=== PATIENT | female | born 1955 | race Caucasian/White ===

== ENCOUNTER 2018-02-14 03:50 | Inpatient (IN) | payer MEDICARE ==
[~2018-02-14] VITALS: Ht 165.1 cm; Wt 83.3 kg
[~2018-02-14 03:50] MED LIST: ASPI-612 PO; ATOR40TA71 PO; CALC-855 PO; CARV25TA2 PO; FERR325T28 PO; FISH1CAP15 PO; FLUO20CA22 PO; FURO-150 PO; GABA-532 PO; INSU100V36 SQ; INSU300I SQ; LEVO25TA7 PO; LISI-604 PO; NORCO10T PO; PANT20TA3 PO; POTA10TA36 PO
[2018-02-14 04:22] LABS: BASOPHILS % (AUTO) 0.3 % (0-1); EOSINOPHILS # (AUTO) 0.3 X10'3 (0-0.9); EOSINOPHILS % (AUTO) 2.6 % (0-6); HEMATOCRIT 35.7 % (35.0-45.0); HEMOGLOBIN 11.7 g/dl (12.0-16.0); LYMPHOCYTES # (AUTO) 0.9 X10'3 (1.1-4.8); LYMPHOCYTES % (AUTO) 7.4 % (21-51); MEAN CORPUSCULAR HEMOGLOBIN 27.2 PG (27.0-31.0); MEAN CORPUSCULAR HGB CONC 32.8 % (33.0-36.5); MEAN CORPUSCULAR VOLUME 83.1 FL (78-98); MEAN PLATELET VOLUME 10.5 FL (7.4-10.4); MONOCYTES # (AUTO) 0.4 X10'3 (0-0.9); MONOCYTES % (AUTO) 3.3 % (2-12); NEUTROPHILS # (AUTO) 10.8 X10'3 (1.8-7.7); NEUTROPHILS % (AUTO) 86.4 % (42-75); RED BLOOD COUNT 4.29 X10'6 (4.20-5.60); WHITE BLOOD COUNT 12.4 X10'3 (4.5-11.0)
[2018-02-14 04:28] LABS: INR 1.4 INR; PROTHROMBIN TIME 13.9 SECONDS (9.0-12.0)
[2018-02-14 04:31] LABS: ALANINE AMINOTRANSFERASE 45 U/L (12-78); ALBUMIN 2.2 G/DL (3.4-5.0); ALBUMIN/GLOBULIN RATIO 0.5 (1.1-1.5); ALKALINE PHOSPHATASE 81 IU/L (46-116); ANION GAP 4 (8-16); ASPARTATE AMINO TRANSFERASE 73 U/L (10-37); BILIRUBIN,TOTAL 0.5 MG/DL (0.1-1.0); BLOOD UREA NITROGEN 25 MG/DL (7-18); BUN/CREATININE RATIO 16.2 (6.6-38.0); CALCIUM 8.8 MG/DL (8.5-10.1); CHLORIDE 100 MMOL/L (99-107); CREATININE 1.54 MG/DL (0.40-0.90); GLUCOSE 130 MG/DL (70-104); POTASSIUM 4.1 MMOL/L (3.5-5.1); SODIUM 133 MMOL/L (135-145); TOTAL PROTEIN 6.6 G/DL (6.4-8.2); eGFR 34 ML/MIN
[2018-02-14 04:37] LABS: PLATELET COUNT 259 X10'3 (140-440)
[2018-02-14] MEDS ORDERED: methylPREDNISolone sod succ 125mg/2ml vial IV ONE (04:40)
[2018-02-14 05:05] LABS: D-DIMER 0.67 MG/L FEU (0-0.50); PARTIAL THROMBOPLASTIN TIME 31 SECONDS (22-32)
[2018-02-14] MEDS ORDERED: VITA100D6 PO (05:38)
[2018-02-14] MEDS ORDERED: INSU100V12 SQ (05:38)
[2018-02-14] MEDS ORDERED: DIGO125T PO (05:38)
[2018-02-14] MEDS ORDERED: APIX5TAB3 PO (05:38)
[2018-02-14] MEDS ORDERED: LEVO100T PO (05:38)
[2018-02-14] MEDS ORDERED: AMIO200T57 PO (05:38)
[2018-02-14] MEDS ORDERED: INSU100V13 SQ (05:38)
[2018-02-14] MEDS ORDERED: ASCO500C15 PO (05:38)
[2018-02-14] MEDS ORDERED: OSC500T PO (05:38)
[2018-02-14] MEDS ORDERED: POTA10TA19 PO (05:38)
[2018-02-14] MEDS ORDERED: FURO-150 PO (05:38)
[2018-02-14] MEDS ORDERED: DEXL60CA3 PO (05:38)
[2018-02-14] MEDS ORDERED: VENL75TA4 PO (05:38)
[2018-02-14] MEDS ORDERED: MULT-933 PO (05:40)
[2018-02-14] MEDS ORDERED: mag hydrox/Alum hydrox/simeth 30ml oral suspension PO PRN (06:05)
[2018-02-14] MEDS ORDERED: ondansetron/PF 4mg/2ml inj IV PRN (06:05)
[2018-02-14] MEDS ORDERED: magnesium hydroxide 30ml (MOM) UD suspension PO PRN (06:05)
[2018-02-14] MEDS ORDERED: acetaminophen 325mg tablet PO PRN (06:05)
[2018-02-14] MEDS ORDERED: HYDROcodone/acetaminophen 10/325mg tab PO PRN (06:10)
[2018-02-14] MEDS ORDERED: non-formulary drug (Fish Oil/Dha/Epa (Fish Oil 1,200 Mg Fish Oil) 1 EACH) PO SCH (08:00)
[2018-02-14] MEDS ORDERED: furosemide 20MG tablet PO SCH (08:00)
[2018-02-14] MEDS ORDERED: insulin Lispro (HumaLOG) vial - multi-dose SQ SCH (08:00)
[2018-02-14] MEDS: carVEDilol 12.5mg tablet PO SCH ×2 (08:03→20:33)
[2018-02-14] MEDS: amiodarone 200mg tablet PO SCH (08:03)
[2018-02-14] MEDS: levoTHYROXINE 100mcg tablet PO SCH (08:03)
[2018-02-14] MEDS: ascorbic acid 500mg tablet PO SCH (08:03)
[2018-02-14] MEDS: potassium chloride 10mEq ER tablet PO SCH (08:03)
[2018-02-14] MEDS: pantoprazole 40mg Tablet.DR PO SCH (08:04)
[2018-02-14] MEDS: multivitamins, therapeutics tablet PO SCH (08:04)
[2018-02-14] MEDS: FLUoxetine 20mg capsule PO SCH ×2 (08:04→20:33)
[2018-02-14] MEDS: ferrous sulfate 325mg tablet PO SCH (08:04)
[2018-02-14] MEDS: lisinopril 5mg tablet PO SCH (08:22)
[2018-02-14] MEDS: apixaban 5mg tablet PO SCH ×2 (08:22→20:33)
[2018-02-14] MEDS: calcium carbonate 500mg tablet PO SCH (08:44)
[2018-02-14] MEDS: digoxin 125mcg (0.125mg) tablet PO SCH (08:44)
[2018-02-14 11:15] VITALS: BP 165/84
[2018-02-14] MEDS ORDERED: furosemide 40mg/4ml inj IV ONE (12:20)
[2018-02-14 15:00] VITALS: BP 166/79
[2018-02-14] MEDS ORDERED: dextrose ORAL solution 15 GM/59 ML bottle PO PRN ×2 (18:05)
[2018-02-14] MEDS ORDERED: dextrose 50%-water 50ml dispensing syringe IV PRN ×2 (18:05)
[2018-02-14] MEDS ORDERED: glucagon, human recombinant 1mg kit SUBCUT PRN (18:05)
[2018-02-14] MEDS ORDERED: MESSAGE TO PHARMACY PO ONE (18:05)
[2018-02-14] MEDS: insulin Lispro (HumaLOG) vial - multi-dose SQ SCH (18:48)
[2018-02-14 19:00] VITALS: BP 160/68
[2018-02-14 19:41] LABS: HEMOGLOBIN A1C 6.8 % (4.5-6.2)
[2018-02-14] MEDS: gabapentin 300mg capsule PO SCH (20:33)
[2018-02-14] MEDS: atorvastatin 20mg tablet PO SCH (20:33)
[2018-02-14] MEDS: insulin glargine (Lantus) pen - multi-dose SQ SCH ×2 (20:42→21:00)
[2018-02-14 23:00] VITALS: BP 159/84
[2018-02-15 03:00] VITALS: BP 154/75
[2018-02-15 06:00] LABS: ALANINE AMINOTRANSFERASE 53 U/L (12-78); ALBUMIN 2.1 G/DL (3.4-5.0); ALBUMIN/GLOBULIN RATIO 0.5 (1.1-1.5); ALKALINE PHOSPHATASE 69 IU/L (46-116); ANION GAP 7 (8-16); ASPARTATE AMINO TRANSFERASE 72 U/L (10-37); BILIRUBIN,TOTAL 0.4 MG/DL (0.1-1.0); BLOOD UREA NITROGEN 28 MG/DL (7-18); BUN/CREATININE RATIO 15.2 (6.6-38.0); CALCIUM 8.9 MG/DL (8.5-10.1); CHLORIDE 100 MMOL/L (99-107); CREATININE 1.84 MG/DL (0.40-0.90); GLUCOSE 157 MG/DL (70-104); POTASSIUM 4.7 MMOL/L (3.5-5.1); SODIUM 136 MMOL/L (135-145); TOTAL CARBON DIOXIDE 29.3 MMOL/L (24-32); TOTAL PROTEIN 6.2 G/DL (6.4-8.2); eGFR 28 ML/MIN
[2018-02-15 06:15] LABS: HEMATOCRIT 36.2 % (35.0-45.0); HEMOGLOBIN 11.8 g/dl (12.0-16.0); LYMPHOCYTES % (AUTO) 13.2 % (21-51); MEAN CORPUSCULAR HEMOGLOBIN 26.9 PG (27.0-31.0); MEAN CORPUSCULAR HGB CONC 32.5 % (33.0-36.5); MEAN CORPUSCULAR VOLUME 82.8 FL (78-98); MEAN PLATELET VOLUME 10.6 FL (7.4-10.4); MONOCYTES % (AUTO) 6.3 % (2-12); NEUTROPHILS % (AUTO) 78.3 % (42-75); PLATELET COUNT 320 X10'3 (140-440); RED BLOOD COUNT 4.37 X10'6 (4.20-5.60); RED CELL DISTRIBUTION WIDTH 16.3 % (11.5-14.5); WHITE BLOOD COUNT 15.1 X10'3 (4.5-11.0)
[2018-02-15 06:16] LABS: BASOPHILS % (AUTO) 0.3 % (0-1); EOSINOPHILS # (AUTO) 0.3 X10'3 (0-0.9); EOSINOPHILS % (AUTO) 1.9 % (0-6); NEUTROPHILS # (AUTO) 11.9 X10'3 (1.8-7.7)
[2018-02-15 07:00] VITALS: BP 141/76
[2018-02-15] MEDS: pantoprazole 40mg Tablet.DR PO SCH (07:16)
[2018-02-15] MEDS: levoTHYROXINE 100mcg tablet PO SCH (07:17)
[2018-02-15] MEDS: lisinopril 5mg tablet PO SCH (07:17)
[2018-02-15] MEDS: carVEDilol 12.5mg tablet PO SCH ×2 (07:18→20:29)
[2018-02-15] MEDS: furosemide 40mg/4ml inj IV SCH (07:18)
[2018-02-15] MEDS: ascorbic acid 500mg tablet PO SCH (07:18)
[2018-02-15] MEDS: apixaban 5mg tablet PO SCH ×2 (07:20→20:37)
[2018-02-15] MEDS: amiodarone 200mg tablet PO SCH (07:21)
[2018-02-15] MEDS: multivitamins, therapeutics tablet PO SCH (07:21)
[2018-02-15] MEDS: calcium carbonate 500mg tablet PO SCH (07:21)
[2018-02-15] MEDS: digoxin 125mcg (0.125mg) tablet PO SCH (07:23)
[2018-02-15] MEDS: potassium chloride 10mEq ER tablet PO SCH (07:24)
[2018-02-15] MEDS: ferrous sulfate 325mg tablet PO SCH (07:24)
[2018-02-15] MEDS: FLUoxetine 20mg capsule PO SCH ×2 (07:25→20:30)
[2018-02-15] MEDS: insulin Lispro (HumaLOG) vial - multi-dose SQ SCH ×2 (08:31→19:36)
[2018-02-15 11:00] VITALS: BP 156/64
[2018-02-15 15:00] VITALS: BP 133/58
[2018-02-15 19:00] VITALS: BP 149/54
[2018-02-15] MEDS: piperacillin/tazo 3.375gm/50ml 50 ML IV SCH (20:29)
[2018-02-15] MEDS: atorvastatin 20mg tablet PO SCH (20:30)
[2018-02-15] MEDS: gabapentin 300mg capsule PO SCH (20:30)
[2018-02-15] MEDS: insulin glargine (Lantus) pen - multi-dose SQ SCH ×2 (20:42→21:00)
[2018-02-15 23:00] VITALS: BP 148/77
[2018-02-16] MEDS: piperacillin/tazo 3.375gm/50ml 50 ML IV SCH ×3 (02:40→13:04)
[2018-02-16 03:00] VITALS: BP 153/68
[2018-02-16 05:18] LABS: BASOPHILS % (AUTO) 0.4 % (0-1); EOSINOPHILS # (AUTO) 0.1 X10'3 (0-0.9); EOSINOPHILS % (AUTO) 1.1 % (0-6); HEMATOCRIT 36.2 % (35.0-45.0); HEMOGLOBIN 11.6 g/dl (12.0-16.0); LYMPHOCYTES # (AUTO) 1.6 X10'3 (1.1-4.8); LYMPHOCYTES % (AUTO) 15.9 % (21-51); MEAN CORPUSCULAR HEMOGLOBIN 26.7 PG (27.0-31.0); MEAN CORPUSCULAR HGB CONC 32.1 % (33.0-36.5); MEAN CORPUSCULAR VOLUME 83.2 FL (78-98); MEAN PLATELET VOLUME 10.5 FL (7.4-10.4); MONOCYTES # (AUTO) 0.5 X10'3 (0-0.9); MONOCYTES % (AUTO) 4.7 % (2-12); NEUTROPHILS # (AUTO) 7.7 X10'3 (1.8-7.7); NEUTROPHILS % (AUTO) 77.9 % (42-75); PLATELET COUNT 246 X10'3 (140-440); RED BLOOD COUNT 4.35 X10'6 (4.20-5.60); RED CELL DISTRIBUTION WIDTH 16.3 % (11.5-14.5); WHITE BLOOD COUNT 9.9 X10'3 (4.5-11.0)
[2018-02-16 06:51] VITALS: BP 129/78
[2018-02-16 06:54] LABS: LARGE PLATELETS FEW; PLATELET ESTIMATE NORMAL
[2018-02-16 06:55] LABS: ALANINE AMINOTRANSFERASE 57 U/L (12-78); ALBUMIN 2.1 G/DL (3.4-5.0); ALBUMIN/GLOBULIN RATIO 0.5 (1.1-1.5); ALKALINE PHOSPHATASE 69 IU/L (46-116); ANION GAP 7 (8-16); ASPARTATE AMINO TRANSFERASE 97 U/L (10-37); BILIRUBIN,TOTAL 0.5 MG/DL (0.1-1.0); BLOOD UREA NITROGEN 32 MG/DL (7-18); BUN/CREATININE RATIO 19.4 (6.6-38.0); CALCIUM 8.6 MG/DL (8.5-10.1); CHLORIDE 100 MMOL/L (99-107); CREATININE 1.65 MG/DL (0.40-0.90); GLUCOSE 122 MG/DL (70-104); POTASSIUM 4.1 MMOL/L (3.5-5.1); SODIUM 137 MMOL/L (135-145); TOTAL CARBON DIOXIDE 29.8 MMOL/L (24-32); TOTAL PROTEIN 6.2 G/DL (6.4-8.2); eGFR 32 ML/MIN
[2018-02-16] MEDS: furosemide 40mg/4ml inj IV SCH (07:15)
[2018-02-16] MEDS: lisinopril 5mg tablet PO SCH (07:18)
[2018-02-16] MEDS: calcium carbonate 500mg tablet PO SCH (07:19)
[2018-02-16] MEDS: FLUoxetine 20mg capsule PO SCH (07:20)
[2018-02-16] MEDS: ascorbic acid 500mg tablet PO SCH (07:21)
[2018-02-16] MEDS: pantoprazole 40mg Tablet.DR PO SCH (07:21)
[2018-02-16] MEDS: ferrous sulfate 325mg tablet PO SCH (07:21)
[2018-02-16] MEDS: multivitamins, therapeutics tablet PO SCH (07:21)
[2018-02-16] MEDS: apixaban 5mg tablet PO SCH (07:22)
[2018-02-16] MEDS: digoxin 125mcg (0.125mg) tablet PO SCH (07:23)
[2018-02-16] MEDS: potassium chloride 10mEq ER tablet PO SCH (07:25)
[2018-02-16] MEDS: levoTHYROXINE 100mcg tablet PO SCH (07:25)
[2018-02-16] MEDS: amiodarone 200mg tablet PO SCH (07:26)
[2018-02-16] MEDS: carVEDilol 12.5mg tablet PO SCH (07:26)
[2018-02-16 11:00] VITALS: BP 138/61
[2018-02-16 15:00] VITALS: BP 95/62
[2018-02-16] MEDS ORDERED: POTA20TA19 PO (16:25)
[2018-02-16] MEDS ORDERED: LEVO500T2 PO (16:25)
[2018-02-16] MEDS ORDERED: FURO-149 PO (16:25)
[2018-02-16 18:00] VITALS: BP 140/69
[2018-02-16] MEDS ORDERED: lactobacillus rhamnosus 10,000 MMU CELLS/CAPSULE PO SCH (20:00)
== END 2018-02-16 18:51 | disposition home health service (06) | DRG 189 ==
LOC: ER 03:51 → ED HOLD 06:04 → EDBEDREQ 10:16 → PCU 3S 11:15
PROVIDERS: ADMIT Internal Medicine; ATTEND Family Medicine
PROC: CB221ZZ Tomographic (Tomo) Nuclear Medicine Imaging of Lungs and Bronchi using Technetium 99m (Tc-99m) (ICD-10-PCS; principal; 2018-02-16)
DX: J96.00 Acute respiratory failure, unspecified whether with hypoxia or hypercapnia (principal); J69.0 Pneumonitis due to inhalation of food and vomit; I69.354 Hemiplegia and hemiparesis following cerebral infarction affecting left non-dominant side; I13.0 Hypertensive heart and chronic kidney disease with heart failure and stage 1 through stage 4 chronic kidney disease, or unspecified chronic kidney disease; J44.9 Chronic obstructive pulmonary disease, unspecified; E78.00 Pure hypercholesterolemia, unspecified; F32.9 Major depressive disorder, single episode, unspecified; I25.10 Atherosclerotic heart disease of native coronary artery without angina pectoris; B33.24 Viral cardiomyopathy; E03.9 Hypothyroidism, unspecified; I25.5 Ischemic cardiomyopathy; E11.21 Type 2 diabetes mellitus with diabetic nephropathy; E11.22 Type 2 diabetes mellitus with diabetic chronic kidney disease; N18.9 Chronic kidney disease, unspecified; E78.5 Hyperlipidemia, unspecified; I48.91 Unspecified atrial fibrillation; I50.9 Heart failure, unspecified; Z74.01 Bed confinement status; Z95.5 Presence of coronary angioplasty implant and graft; Z95.810 Presence of automatic (implantable) cardiac defibrillator; Z88.5 Allergy status to narcotic agent; Z91.030 Bee allergy status; Z79.01 Long term (current) use of anticoagulants; Z79.4 Long term (current) use of insulin; Z79.899 Other long term (current) drug therapy; Z85.820 Personal history of malignant melanoma of skin; Z87.891 Personal history of nicotine dependence; Z82.3 Family history of stroke; Z80.1 Family history of malignant neoplasm of trachea, bronchus and lung; Z82.61 Family history of arthritis
CPT/HCPCS: 36415; 71045; 78582; 80053; 82948; 83036; 84443; 84484; 85025; 85379; 85610; 85730; 87070; 93005; 93306; 93971; 96374; 99285; A4353; A9539; A9540; J1815; J1940; J2543; J2930; J7030

== ENCOUNTER 2018-11-11 09:21 | Emergency (ER) | payer MEDICARE ==
[~2018-11-11] VITALS: Ht 165.1 cm; Wt 78.8 kg
[~2018-11-11 09:21] MED LIST changes: +AMIO200T40 PO; +APIX5TAB3 PO; +ASCO500C15 PO; -ASPI-612 PO; -CALC-855 PO; +DEXL60CA3 PO; +DIGO125T PO; +FURO-149 PO; -FURO-150 PO; +INSU100V12 SQ; +INSU100V13 SQ; -INSU100V36 SQ; -INSU300I SQ; +LEVO100T PO; -LEVO25TA7 PO; +MULT-933 PO; +OSC500T PO; -PANT20TA3 PO; -POTA10TA36 PO; +VENL75TA4 PO; +VITA100D6 PO
[2018-11-11] MEDS ORDERED: ondansetron/PF 4mg/2ml inj IV ONE (09:45)
[2018-11-11] MEDS ORDERED: normal saline 1000ML IV soln IVB ONE (09:45)
[2018-11-11 10:08] LABS: BASOPHILS # (AUTO) 0.1 X10'3 (0-0.2); BASOPHILS % (AUTO) 0.9 % (0-1); EOSINOPHILS # (AUTO) 0.3 X10'3 (0-0.9); EOSINOPHILS % (AUTO) 2.6 % (0-6); HEMATOCRIT 42.7 % (35.0-45.0); HEMOGLOBIN 14.2 g/dl (12.0-16.0); LYMPHOCYTES # (AUTO) 1.4 X10'3 (1.1-4.8); LYMPHOCYTES % (AUTO) 10.3 % (21-51); MEAN CORPUSCULAR HEMOGLOBIN 29.8 PG (27.0-31.0); MEAN CORPUSCULAR HGB CONC 33.4 g/dL (33.0-36.5); MEAN CORPUSCULAR VOLUME 89.4 FL (78-98); MONOCYTES # (AUTO) 0.7 X10'3 (0-0.9); MONOCYTES % (AUTO) 5.6 % (2-12); NEUTROPHILS # (AUTO) 10.6 X10'3 (1.8-7.7); NEUTROPHILS % (AUTO) 80.6 % (42-75); PLATELET COUNT 207 X10'3 (140-440); RED BLOOD COUNT 4.77 X10'6 (4.20-5.60); RED CELL DISTRIBUTION WIDTH 13.8 % (11.5-14.5); WHITE BLOOD COUNT 13.1 X10'3 (4.5-11.0)
[2018-11-11 10:27] LABS: ALANINE AMINOTRANSFERASE 100 U/L (12-78); ALBUMIN 3.4 G/DL (3.4-5.0); ALBUMIN/GLOBULIN RATIO 0.9 (1.1-1.5); ALKALINE PHOSPHATASE 66 IU/L (46-116); ANION GAP 13 (8-16); ASPARTATE AMINO TRANSFERASE 96 U/L (10-37); BLOOD UREA NITROGEN 35 MG/DL (7-18); BUN/CREATININE RATIO 18.8 (6.6-38.0); CHLORIDE 103 MMOL/L (99-107); CREATININE 1.86 MG/DL (0.40-0.90); GLUCOSE 189 MG/DL (70-104); LIPASE 176 U/L (73-393); POTASSIUM 4.2 MMOL/L (3.5-5.1); SODIUM 139 MMOL/L (135-145); TOTAL CARBON DIOXIDE 23.2 MMOL/L (24-32); TOTAL PROTEIN 7.3 G/DL (6.4-8.2); TROPONIN I 0.04 NG/ML (0.0-0.05); eGFR 27 ML/MIN
[2018-11-11] MEDS ORDERED: proCHLORperazine 10 MG/2 ml inj IV ONE (10:35)
--- NOTE | 2018-11-11 11:36 | NUR ---
Attempted to collect UA via bedpan. Lab staff stated sample amount was insuffecent. TRINO BLACK informed.
[2018-11-11] MEDS ORDERED: ONDA4TAB6 PO (11:54)
[2018-11-11 12:39] VITALS: BP 145/56
== END 2018-11-11 12:41 | disposition home or self-care (01) ==
LOC: ER 09:22
DX: R11.2 Nausea with vomiting, unspecified (principal); I48.91 Unspecified atrial fibrillation; I25.10 Atherosclerotic heart disease of native coronary artery without angina pectoris; I11.0 Hypertensive heart disease with heart failure; I50.9 Heart failure, unspecified; E78.00 Pure hypercholesterolemia, unspecified; I25.2 Old myocardial infarction; E11.9 Type 2 diabetes mellitus without complications; Z95.5 Presence of coronary angioplasty implant and graft; Z86.73 Personal history of transient ischemic attack (TIA), and cerebral infarction without residual deficits; Z95.0 Presence of cardiac pacemaker; Z90.49 Acquired absence of other specified parts of digestive tract; Z79.4 Long term (current) use of insulin; Z79.899 Other long term (current) drug therapy; Z88.5 Allergy status to narcotic agent
CPT/HCPCS: 36415; 80053; 83690; 84484; 85025; 93005; 96374; 96375; 99284; J0780; J2405; J7030

== ENCOUNTER 2018-11-18 14:11 | Observation (INO) | payer MEDICARE ==
[~2018-11-18] VITALS: Ht 165.1 cm; Wt 84.5 kg
[~2018-11-18 14:11] MED LIST changes: +ONDA4TAB6 PO
[2018-11-18] MEDS ORDERED: proCHLORperazine 10 MG/2 ml inj IV ONE (14:20)
[2018-11-18] MEDS ORDERED: normal saline 1000ml 1,000 ML IV ONE (14:20)
[2018-11-18] MEDS ORDERED: ondansetron/PF 4mg/2ml inj IV ONE (14:20)
[2018-11-18] MEDS ORDERED: LORazepam 2 mg/ml vial IV ONE (14:40)
[2018-11-18 15:15] LABS: BASOPHILS % (AUTO) 0.7 % (0-1); EOSINOPHILS # (AUTO) 0.2 X10'3 (0-0.9); EOSINOPHILS % (AUTO) 2.7 % (0-6); HEMATOCRIT 37.3 % (35.0-45.0); HEMOGLOBIN 12.5 g/dl (12.0-16.0); LYMPHOCYTES # (AUTO) 0.7 X10'3 (1.1-4.8); LYMPHOCYTES % (AUTO) 10.6 % (21-51); MEAN CORPUSCULAR HEMOGLOBIN 30.1 PG (27.0-31.0); MEAN CORPUSCULAR HGB CONC 33.6 g/dL (33.0-36.5); MEAN CORPUSCULAR VOLUME 89.6 FL (78-98); MEAN PLATELET VOLUME 11.1 FL (7.4-10.4); MONOCYTES # (AUTO) 0.4 X10'3 (0-0.9); MONOCYTES % (AUTO) 6.2 % (2-12); NEUTROPHILS # (AUTO) 5.6 X10'3 (1.8-7.7); NEUTROPHILS % (AUTO) 79.8 % (42-75); PLATELET COUNT 148 X10'3 (140-440); RED BLOOD COUNT 4.17 X10'6 (4.20-5.60); RED CELL DISTRIBUTION WIDTH 13.5 % (11.5-14.5)
[2018-11-18] MEDS ORDERED: meclizine 12.5mg tablet PO ONE (15:20)
[2018-11-18] MEDS ORDERED: proMETHazine 25mg tablet PO ONE (15:20)
[2018-11-18 15:23] LABS: ALANINE AMINOTRANSFERASE 76 U/L (12-78); ALBUMIN 2.9 G/DL (3.4-5.0); ALBUMIN/GLOBULIN RATIO 0.9 (1.1-1.5); ALKALINE PHOSPHATASE 60 IU/L (46-116); ANION GAP 12 (8-16); ASPARTATE AMINO TRANSFERASE 93 U/L (10-37); BILIRUBIN,TOTAL 0.7 MG/DL (0.1-1.0); BLOOD UREA NITROGEN 31 MG/DL (7-18); CALCIUM 9.3 MG/DL (8.5-10.1); CHLORIDE 105 MMOL/L (99-107); CREATININE 1.82 MG/DL (0.40-0.90); GLUCOSE 174 MG/DL (70-104); POTASSIUM 4.1 MMOL/L (3.5-5.1); SODIUM 141 MMOL/L (135-145); TOTAL CARBON DIOXIDE 24.4 MMOL/L (24-32); TOTAL PROTEIN 6.3 G/DL (6.4-8.2); eGFR 28 ML/MIN
[2018-11-18 15:28] LABS: LIPASE 198 U/L (73-393); TROPONIN I < 0.04 NG/ML (0.0-0.05)
[2018-11-18 17:36] LABS: CLARITY,URINE CLOUDY (Clear); COLOR,URINE YELLOW (Yellow); GLUCOSE, URINE NEGATIVE (Neg); KETONES,URINE NEGATIVE (Neg); LEUKOCYTE ESTERASE ,URINE NEGATIVE (Neg); NITRITES, URINE NEGATIVE (Neg); OCCULT BLOOD,URINE LARGE (Neg); PROTEIN,URINE 100 mg/dl (Neg); UA COLLECTION TYPE CLN CATCH MIDSTREAM; UROBILINOGEN,URINE 0.2 E.U/dL (0.2-1.0)
[2018-11-18 18:01] LABS: MUCUS STRANDS MODERATE /LPF (Neg); SQUAMOUS EPITHELIAL CELL,UR FEW /LPF (FEW); TRANSITIONAL EPI CELLS,URINE FEW /HPF
[2018-11-18 18:02] LABS: AMORPHOUS URATES 2+; BACTERIA,URINE NONE SEEN /HPF (Neg); RBC,URINE TNTC /HPF (0-2); WBC,URINE 0-4 /HPF (0-4)
--- NOTE | 2018-11-18 18:14 | NUR ---
TELENEURO CONSULT INITIATED
[2018-11-18] MEDS ORDERED: POTA20TA19 PO (20:04)
[2018-11-18] MEDS ORDERED: DESV25TA2 PO (20:04)
[2018-11-18] MEDS ORDERED: acetaminophen 325mg tablet PO PRN ×2 (20:10)
[2018-11-18] MEDS ORDERED: mag hydrox/Alum hydrox/simeth 30ml oral suspension PO PRN (20:10)
[2018-11-18] MEDS ORDERED: dextrose 50%-water 50ml dispensing syringe IV PRN ×2 (20:10)
[2018-11-18] MEDS ORDERED: glucagon, human recombinant 1mg kit SUBCUT PRN (20:10)
[2018-11-18] MEDS ORDERED: dextrose ORAL solution 15 GM/59 ML bottle PO PRN ×2 (20:10)
[2018-11-18] MEDS ORDERED: insulin Lispro (HumaLOG) vial - multi-dose SQ SCH (20:10)
[2018-11-18] MEDS ORDERED: magnesium hydroxide 30ml (MOM) UD suspension PO PRN (20:10)
[2018-11-18] MEDS ORDERED: MESSAGE TO PHARMACY PO ONE (20:10)
[2018-11-18] MEDS ORDERED: ondansetron/PF 4mg/2ml inj IV PRN (20:10)
[2018-11-18] MEDS ORDERED: meclizine 12.5mg tablet PO PRN (20:20)
[2018-11-18] MEDS ORDERED: HYDROcodone/acetaminophen 10/325mg tab PO PRN (20:20)
[2018-11-18 20:40] LABS: HEMOGLOBIN A1C 7.1 % (4.5-6.2)
[2018-11-18] MEDS ORDERED: DESVENLAFAXINE SUCCINATE 25 MG PO SCH (21:00)
[2018-11-18] MEDS ORDERED: non-formulary drug (Atorvastatin Calcium 1 TABLET) PO SCH (21:00)
[2018-11-18] MEDS ORDERED: INSULIN DETEMIR 30 UNIT SQ SCH (21:00)
[2018-11-18] MEDS ORDERED: insulin glargine (Lantus) pen - multi-dose SQ SCH (21:00)
[2018-11-18] MEDS: venlafaxine 25mg tablet PO SCH (21:18)
[2018-11-18] MEDS: atorvastatin 20mg tablet PO SCH (21:18)
[2018-11-18] MEDS: gabapentin 300mg capsule PO SCH (21:18)
[2018-11-18 22:30] VITALS: BP 151/43
[2018-11-18] MEDS: insulin glargine (Lantus) pen - multi-dose SQ SCH (22:49)
[2018-11-19 02:00] VITALS: BP 145/59
[2018-11-19 06:00] VITALS: BP 154/51
[2018-11-19 06:01] LABS: BASOPHILS # (AUTO) 0.1 X10'3 (0-0.2); BASOPHILS % (AUTO) 0.9 % (0-1); EOSINOPHILS # (AUTO) 0.2 X10'3 (0-0.9); EOSINOPHILS % (AUTO) 2.8 % (0-6); HEMATOCRIT 37.5 % (35.0-45.0); HEMOGLOBIN 12.5 g/dl (12.0-16.0); LYMPHOCYTES # (AUTO) 1.4 X10'3 (1.1-4.8); MEAN CORPUSCULAR HEMOGLOBIN 30.3 PG (27.0-31.0); MEAN CORPUSCULAR HGB CONC 33.4 g/dL (33.0-36.5); MEAN CORPUSCULAR VOLUME 90.6 FL (78-98); MONOCYTES # (AUTO) 0.4 X10'3 (0-0.9); MONOCYTES % (AUTO) 5.9 % (2-12); NEUTROPHILS # (AUTO) 5.1 X10'3 (1.8-7.7); NEUTROPHILS % (AUTO) 70.4 % (42-75); PLATELET COUNT 169 X10'3 (140-440); RED BLOOD COUNT 4.14 X10'6 (4.20-5.60); RED CELL DISTRIBUTION WIDTH 13.6 % (11.5-14.5); WHITE BLOOD COUNT 7.2 X10'3 (4.5-11.0)
[2018-11-19 06:15] LABS: ANION GAP 7 (8-16); BLOOD UREA NITROGEN 28 MG/DL (7-18); BUN/CREATININE RATIO 16.2 (6.6-38.0); CALCIUM 9.4 MG/DL (8.5-10.1); CHLORIDE 105 MMOL/L (99-107); CREATININE 1.73 MG/DL (0.40-0.90); GLUCOSE 109 MG/DL (70-104); LDL CHOLESTEROL 100 MG/DL (50-100); POTASSIUM 4.3 MMOL/L (3.5-5.1); SODIUM 142 MMOL/L (135-145); TOTAL CARBON DIOXIDE 29.9 MMOL/L (24-32); eGFR 30 ML/MIN
--- NOTE | 2018-11-19 06:27 | NUR ---
Report given to Yuliya SILVA.
[2018-11-19] MEDS: venlafaxine 25mg tablet PO SCH ×3 (07:49→21:33)
[2018-11-19] MEDS: ascorbic acid 500mg tablet PO SCH (07:49)
[2018-11-19] MEDS: amiodarone 200mg tablet PO SCH (07:49)
[2018-11-19] MEDS: FLUoxetine 20mg capsule PO SCH ×2 (07:50→21:33)
[2018-11-19] MEDS: potassium Cl 20 mEq SR tablet PO SCH (07:50)
[2018-11-19] MEDS: apixaban 5mg tablet PO SCH ×2 (07:50→21:33)
[2018-11-19] MEDS: levoTHYROXINE 100mcg tablet PO SCH (07:50)
[2018-11-19] MEDS: pantoprazole 40mg Tablet.DR PO SCH (07:50)
[2018-11-19] MEDS: ferrous sulfate 325mg tablet PO SCH (07:50)
[2018-11-19] MEDS: multivitamins, therapeutics tablet PO SCH (07:52)
[2018-11-19] MEDS: furosemide 40mg tablet PO SCH (07:52)
[2018-11-19] MEDS: calcium carbonate 500mg tablet PO SCH (07:52)
[2018-11-19] MEDS: lisinopril 10 MG tablet PO SCH (07:52)
[2018-11-19] MEDS: OMEGA-3/DHA/EPA/FISH OIL 1 EACH CAPSULE.DR PO SCH (07:52)
[2018-11-19] MEDS: carVEDilol 12.5mg tablet PO SCH ×2 (07:52→21:33)
[2018-11-19] MEDS ORDERED: CARVEDILOL PO SCH (08:00)
[2018-11-19] MEDS ORDERED: non-formulary drug (Multivitamin (One Daily Multivitamin) 1 TAB) PO SCH (08:00)
[2018-11-19] MEDS ORDERED: non-formulary drug (Dexlansoprazole (Dexilant) 1 CAP) PO SCH (08:00)
[2018-11-19] MEDS ORDERED: non-formulary drug (Ascorbic Acid (Vitamin C) 1 CAP) PO SCH (08:00)
[2018-11-19] MEDS ORDERED: non-formulary drug (Fish Oil/Dha/Epa (Fish Oil 1,200 Mg Fish Oil) 1 EACH) PO SCH (08:00)
[2018-11-19] MEDS: digoxin 125mcg (0.125mg) tablet PO SCH (08:00)
[2018-11-19 10:00] VITALS: BP 133/46
[2018-11-19 14:00] VITALS: BP 139/57
--- NOTE | 2018-11-19 17:46 | NUR ---
Pt seen by TOMMY for written/verbal DM ed. Pt declined verbal ed; RD contact information provided. Addendum: 11/19/18 at [address] Amended: Links added.
--- NOTE | 2018-11-19 18:07 | NUR ---
Problems reprioritized. Patient report given, questions answered & plan of care reviewed with DA morris.
[2018-11-19 18:34] VITALS: BP 143/43
[2018-11-19] MEDS: gabapentin 300mg capsule PO SCH (21:32)
[2018-11-19] MEDS: atorvastatin 20mg tablet PO SCH (21:32)
[2018-11-19] MEDS: insulin glargine (Lantus) pen - multi-dose SQ SCH (21:32)
[2018-11-19 22:00] VITALS: BP 168/55
[2018-11-20 06:33] LABS: BASOPHILS % (AUTO) 0.6 % (0-1); EOSINOPHILS # (AUTO) 0.3 X10'3 (0-0.9); EOSINOPHILS % (AUTO) 3.3 % (0-6); HEMATOCRIT 36.8 % (35.0-45.0); HEMOGLOBIN 12.4 g/dl (12.0-16.0); LYMPHOCYTES # (AUTO) 1.5 X10'3 (1.1-4.8); LYMPHOCYTES % (AUTO) 19.8 % (21-51); MEAN CORPUSCULAR HEMOGLOBIN 30.3 PG (27.0-31.0); MEAN CORPUSCULAR HGB CONC 33.7 g/dL (33.0-36.5); MEAN CORPUSCULAR VOLUME 89.8 FL (78-98); MEAN PLATELET VOLUME 10.5 FL (7.4-10.4); MONOCYTES # (AUTO) 0.5 X10'3 (0-0.9); MONOCYTES % (AUTO) 6.7 % (2-12); NEUTROPHILS # (AUTO) 5.4 X10'3 (1.8-7.7); NEUTROPHILS % (AUTO) 69.6 % (42-75); PLATELET COUNT 151 X10'3 (140-440); RED CELL DISTRIBUTION WIDTH 13.4 % (11.5-14.5); WHITE BLOOD COUNT 7.8 X10'3 (4.5-11.0)
[2018-11-20 06:39] LABS: ALBUMIN 2.9 G/DL (3.4-5.0); ANION GAP 7 (8-16); BLOOD UREA NITROGEN 38 MG/DL (7-18); BUN/CREATININE RATIO 17.9 (6.6-38.0); CALCIUM 9.5 MG/DL (8.5-10.1); CHLORIDE 104 MMOL/L (99-107); CREATININE 2.12 MG/DL (0.40-0.90); GLUCOSE 153 MG/DL (70-104); POTASSIUM 4.3 MMOL/L (3.5-5.1); SODIUM 140 MMOL/L (135-145); TOTAL CARBON DIOXIDE 29.3 MMOL/L (24-32); eGFR 24 ML/MIN
[2018-11-20] MEDS: pantoprazole 40mg Tablet.DR PO SCH (07:32)
[2018-11-20] MEDS: venlafaxine 25mg tablet PO SCH ×2 (07:32→13:39)
[2018-11-20] MEDS: apixaban 5mg tablet PO SCH (07:32)
[2018-11-20] MEDS: calcium carbonate 500mg tablet PO SCH (07:33)
[2018-11-20] MEDS: OMEGA-3/DHA/EPA/FISH OIL 1 EACH CAPSULE.DR PO SCH (07:33)
[2018-11-20] MEDS: FLUoxetine 20mg capsule PO SCH (07:33)
[2018-11-20] MEDS: potassium Cl 20 mEq SR tablet PO SCH (07:33)
[2018-11-20] MEDS: ferrous sulfate 325mg tablet PO SCH (07:33)
[2018-11-20] MEDS: ascorbic acid 500mg tablet PO SCH (07:34)
[2018-11-20] MEDS: multivitamins, therapeutics tablet PO SCH (07:34)
[2018-11-20] MEDS: levoTHYROXINE 100mcg tablet PO SCH (07:34)
[2018-11-20] MEDS: carVEDilol 12.5mg tablet PO SCH (07:39)
[2018-11-20] MEDS: digoxin 125mcg (0.125mg) tablet PO SCH (07:41)
[2018-11-20] MEDS: furosemide 40mg tablet PO SCH (07:42)
[2018-11-20] MEDS: amiodarone 200mg tablet PO SCH (07:44)
[2018-11-20 07:54] VITALS: BP_SYST 152
[2018-11-20] MEDS: lisinopril 10 MG tablet PO SCH (07:54)
[2018-11-20] MEDS ORDERED: MECL12.584 PO (12:50)
--- NOTE | 2018-11-20 14:45 | NUR ---
Received discharge orders from Dr. Romero. Pt called her to pick her up. Saline lock dc'd from RFA with cannula intact. RX for Meclizine called to [facility] on [address] per pts request. Reviewed discharge instructions with pt and printed take home packet. Pt states she understood discharge instructions. Pt will f/u with PCP in one week per Dr. Romero, with lab work to be done this Sunday. Pt discharged via w/c to private vehicle with and assisted into car at 1445.
== END 2018-11-20 15:00 | disposition home or self-care (01) ==
LOC: ER 14:12 → INTOOBSV 20:15 → ORTHO 4S 20:15
PROVIDERS: ADMIT Hospitalist; ATTEND Internal Medicine
DX: R42 Dizziness and giddiness (principal); E44.0 Moderate protein-calorie malnutrition; I69.959 Hemiplegia and hemiparesis following unspecified cerebrovascular disease affecting unspecified side; G45.9 Transient cerebral ischemic attack, unspecified; E11.22 Type 2 diabetes mellitus with diabetic chronic kidney disease; I13.0 Hypertensive heart and chronic kidney disease with heart failure and stage 1 through stage 4 chronic kidney disease, or unspecified chronic kidney disease; N18.9 Chronic kidney disease, unspecified; I50.9 Heart failure, unspecified; I48.91 Unspecified atrial fibrillation; I25.10 Atherosclerotic heart disease of native coronary artery without angina pectoris; E78.00 Pure hypercholesterolemia, unspecified; I25.2 Old myocardial infarction
CPT/HCPCS: 36415; 70450; 71045; 80048; 80053; 80162; 81001; 82948; 83036; 83690; 83721; 84484; 85025; 87070; 93005; 96361; 96372; 96374; 96375; 97163; 97530; 99284; G0378; J0780; J2060; J2405; J8597; 99285; J1815; Q0169

== ENCOUNTER 2019-03-06 11:57 | Emergency (ER) | payer MEDICARE ==
[~2019-03-06] VITALS: Ht 165.1 cm; Wt 90.0 kg
[~2019-03-06 11:57] MED LIST changes: -AMIO200T40 PO; +AMIO200T61 PO; +DESV25TA2 PO; -FURO-149 PO; +FURO40TA4 PO; +MECL12.584 PO; -ONDA4TAB6 PO; +POTA10TA10 PO; -VENL75TA4 PO
[2019-03-06] MEDS ORDERED: aspirin 81mg tab.chew PO ONE (12:20)
[2019-03-06 12:47] LABS: BASOPHILS # (AUTO) 0.1 X10'3 (0-0.2); BASOPHILS % (AUTO) 0.4 % (0-1); EOSINOPHILS # (AUTO) 0.2 X10'3 (0-0.9); EOSINOPHILS % (AUTO) 1.4 % (0-6); HEMATOCRIT 36.2 % (35.0-45.0); HEMOGLOBIN 11.6 g/dl (12.0-16.0); LYMPHOCYTES % (AUTO) 5.8 % (21-51); MEAN CORPUSCULAR HEMOGLOBIN 28.3 PG (27.0-31.0); MEAN CORPUSCULAR VOLUME 88.5 FL (78-98); MEAN PLATELET VOLUME 11.2 FL (7.4-10.4); MONOCYTES # (AUTO) 0.8 X10'3 (0-0.9); MONOCYTES % (AUTO) 4.6 % (2-12); NEUTROPHILS # (AUTO) 14.8 X10'3 (1.8-7.7); NEUTROPHILS % (AUTO) 87.8 % (42-75); PLATELET COUNT 269 X10'3 (140-440); RED BLOOD COUNT 4.09 X10'6 (4.20-5.60); RED CELL DISTRIBUTION WIDTH 15.1 % (11.5-14.5); WHITE BLOOD COUNT 16.9 X10'3 (4.5-11.0)
[2019-03-06 12:55] LABS: ALANINE AMINOTRANSFERASE 30 U/L (12-78); ALBUMIN 2.8 G/DL (3.4-5.0); ALBUMIN/GLOBULIN RATIO 0.6 (1.1-1.5); ALKALINE PHOSPHATASE 67 IU/L (46-116); ANION GAP 8 (8-16); ASPARTATE AMINO TRANSFERASE 44 U/L (10-37); BILIRUBIN,TOTAL 0.7 MG/DL (0.1-1.0); BLOOD UREA NITROGEN 31 MG/DL (7-18); BUN/CREATININE RATIO 20.8 (6.6-38.0); CALCIUM 8.9 MG/DL (8.5-10.1); CHLORIDE 101 MMOL/L (99-107); CREATININE 1.49 MG/DL (0.40-0.90); GLUCOSE 222 MG/DL (70-104); POTASSIUM 4.7 MMOL/L (3.5-5.1); SODIUM 135 MMOL/L (135-145); TOTAL CARBON DIOXIDE 25.8 MMOL/L (24-32); TOTAL PROTEIN 7.3 G/DL (6.4-8.2); eGFR 35 ML/MIN
[2019-03-06 13:04] LABS: MAGNESIUM 1.7 MG/DL (1.5-2.4)
[2019-03-06 14:15] LABS: LARGE PLATELETS FEW; PLATELET ESTIMATE NORMAL
[2019-03-06] MEDS ORDERED: LEVO750T21 PO (15:08)
[2019-03-06 15:38] VITALS: BP 124/88
== END 2019-03-06 15:39 | disposition home or self-care (01) ==
LOC: ER 11:57
DX: I11.0 Hypertensive heart disease with heart failure (principal); I50.9 Heart failure, unspecified; I48.91 Unspecified atrial fibrillation; I25.10 Atherosclerotic heart disease of native coronary artery without angina pectoris; E78.00 Pure hypercholesterolemia, unspecified; I25.2 Old myocardial infarction; G47.30 Sleep apnea, unspecified; E11.9 Type 2 diabetes mellitus without complications; Z86.73 Personal history of transient ischemic attack (TIA), and cerebral infarction without residual deficits; Z98.61 Coronary angioplasty status; Z90.49 Acquired absence of other specified parts of digestive tract; Z95.0 Presence of cardiac pacemaker; Z95.9 Presence of cardiac and vascular implant and graft, unspecified; Z88.6 Allergy status to analgesic agent; Z79.4 Long term (current) use of insulin; Z79.899 Other long term (current) drug therapy
CPT/HCPCS: 36415; 71045; 80053; 83735; 83880; 84484; 85025; 93005; 99284

== ENCOUNTER 2019-06-24 13:27 | Inpatient (IN) | payer MEDICARE ==
[~2019-06-24] VITALS: Ht 165.1 cm; Wt 72.7 kg
[2019-06-24] VITALS (14 sets, daily range): BP systolic 101–145; BP diastolic 31–94
--- NOTE | 2019-06-24 14:16 | NUR ---
WAS BROUGHT IN TO ER FOR HAVING BLOODY STOOL X 1 WEEK
[2019-06-24] MEDS ORDERED: normal saline 1000ml 1,000 ML IV ONE (14:44)
[2019-06-24 15:16] LABS: BASOPHILS % (AUTO) 0.6 % (0-1); EOSINOPHILS # (AUTO) 0.1 X10'3 (0-0.9); HEMOGLOBIN 7.2 g/dl (12.0-16.0); LYMPHOCYTES # (AUTO) 1.2 X10'3 (1.1-4.8); LYMPHOCYTES % (AUTO) 15.7 % (21-51); MEAN CORPUSCULAR HEMOGLOBIN 31.2 PG (27.0-31.0); MEAN CORPUSCULAR HGB CONC 33.8 g/dL (33.0-36.5); MEAN CORPUSCULAR VOLUME 92.3 FL (78-98); MEAN PLATELET VOLUME 10.4 FL (7.4-10.4); MONOCYTES # (AUTO) 0.4 X10'3 (0-0.9); MONOCYTES % (AUTO) 5.2 % (2-12); NEUTROPHILS # (AUTO) 5.7 X10'3 (1.8-7.7); NEUTROPHILS % (AUTO) 76.5 % (42-75); PLATELET COUNT 162 X10'3 (140-440); RED BLOOD COUNT 2.31 X10'6 (4.20-5.60); RED CELL DISTRIBUTION WIDTH 15.1 % (11.5-14.5); WHITE BLOOD COUNT 7.4 X10'3 (4.5-11.0)
[2019-06-24 15:19] LABS: HEMATOCRIT 21.3 % (35.0-45.0)
[2019-06-24 15:28] LABS: ALANINE AMINOTRANSFERASE 24 U/L (12-78); ALBUMIN/GLOBULIN RATIO 0.9 (1.1-1.5); ALKALINE PHOSPHATASE 56 IU/L (46-116); ANION GAP 12 (8-16); ASPARTATE AMINO TRANSFERASE 29 U/L (10-37); BILIRUBIN,TOTAL 0.4 MG/DL (0.1-1.0); BLOOD UREA NITROGEN 55 MG/DL (7-18); BUN/CREATININE RATIO 19.9 (6.6-38.0); CALCIUM 8.9 MG/DL (8.5-10.1); CHLORIDE 101 MMOL/L (99-107); CREATININE 2.77 MG/DL (0.40-0.90); GLUCOSE 269 MG/DL (70-104); POTASSIUM 5.3 MMOL/L (3.5-5.1); SODIUM 137 MMOL/L (135-145); TOTAL CARBON DIOXIDE 24.4 MMOL/L (24-32); TOTAL PROTEIN 6.2 G/DL (6.4-8.2); eGFR 17 ML/MIN
[2019-06-24 15:45] LABS: OCCULT BLOOD STOOL POSITIVE (Neg)
[2019-06-24] MEDS ORDERED: HYDROcodone/acetaminophen 10/325mg tab PO PRN (16:05)
[2019-06-24] MEDS ORDERED: acetaminophen 325mg tablet PO PRN (16:05)
[2019-06-24] MEDS ORDERED: potassium CL 10mEq/100ml bag 100 ML IV PRN ×2 (16:05)
[2019-06-24] MEDS ORDERED: MESSAGE TO PHARMACY PO ONE (16:05)
[2019-06-24] MEDS ORDERED: dextrose ORAL solution 15 GM/59 ML bottle PO PRN ×2 (16:05)
[2019-06-24] MEDS ORDERED: mag hydrox/Alum hydrox/simeth 30ml oral suspension PO PRN (16:05)
[2019-06-24] MEDS ORDERED: magnesium 2GM in 50ml NS 50 ML IV PRN (16:05)
[2019-06-24] MEDS ORDERED: magnesium 4gm in 100ml NS 100 ML IV PRN (16:05)
[2019-06-24] MEDS ORDERED: glucagon, human recombinant 1mg kit SUBCUT PRN (16:05)
[2019-06-24] MEDS ORDERED: potassium Cl 20 mEq SR tablet PO PRN ×2 (16:05)
[2019-06-24] MEDS ORDERED: dextrose 50%-water 50ml dispensing syringe IV PRN ×2 (16:05)
[2019-06-24] MEDS ORDERED: ondansetron/PF 4mg/2ml inj IV PRN (16:05)
[2019-06-24] MEDS ORDERED: magnesium Cl slow-release 64mg tablet PO PRN (16:05)
[2019-06-24 17:21] LABS: HEMOGLOBIN A1C 7.5 % (4.5-6.2)
--- NOTE | 2019-06-24 18:03 | NUR ---
Patient in room ED 8 will be admitted to PCU 3012B. I have received report from Db SILVA and had the opportunity to ask questions and assume patient care. Pt will be coming to unit after GI Lab.
--- NOTE | 2019-06-24 18:19 | NUR ---
Patient in room PCU 3012. I have received report from RICARDO Mosher from GI ;AB and had the opportunity to ask questions and assume patient care.
--- NOTE | 2019-06-24 18:19 | NUR ---
Problems reprioritized. Patient report given, questions answered & plan of care reviewed with Breanne SILVA.
[2019-06-24] MEDS ORDERED: fentaNYL/PF 50MCG/1 ML 2ML syringe ONE (18:40)
[2019-06-24] MEDS ORDERED: LIDOcaine Viscous 15ml cup ONE (18:41)
[2019-06-24] MEDS ORDERED: MIDAZolam 5mg/5ml vial ONE (18:41)
[2019-06-24] MEDS ORDERED: carVEDilol 12.5mg tablet PO SCH (20:00)
[2019-06-24] MEDS: DESVENLAFAXINE SUCCINATE 25 MG PO SCH (21:00)
[2019-06-24] MEDS: insulin glargine (Lantus) pen - multi-dose SQ SCH (21:00)
--- NOTE | 2019-06-24 22:35 | NUR ---
2046 vital sign for tempurature showed 99.7 during blood transfusion, however, the patient had just had a cup of hot chicken broth. Temp was retaken a few minutes later and was in normal range.
[2019-06-24] MEDS: gabapentin 300mg capsule PO SCH (22:58)
[2019-06-24] MEDS: atorvastatin 20mg tablet PO SCH (22:59)
[2019-06-24] MEDS: carVEDilol 12.5mg tablet PO SCH (22:59)
[2019-06-24] MEDS: bisacodyl 5mg tablet.DR PO SCH (23:00)
[2019-06-24] MEDS: FLUoxetine 20mg capsule PO SCH (23:00)
[2019-06-24] MEDS: pantoprazole 40MG/NS 100ML BAG 100 ML IV SCH (23:01)
[2019-06-25 02:00] VITALS: BP 149/42
--- NOTE | 2019-06-25 02:05 | NUR ---
Patient arrived on unit at approximately 2000 via gurney. Patient transferred to bed with slide board. Patient vitals taken and recorded. Blood transfused per MD order. 2 RN skin check complete, DART complete, MRSA swab collected. Patient stable.
--- NOTE | 2019-06-25 02:13 | NUR ---
Patient placed on bed bear,NA reports smears of blood in between patient groin area. NA not sure where blood was coming from it did not appear to come from her anus or vagina, patient has had complete hysterectomy.
[2019-06-25] MEDS: pantoprazole 40MG/NS 100ML BAG 100 ML IV SCH ×5 (03:45→21:00)
[2019-06-25] MEDS ORDERED: PEG 3350/Na sulf,bicarb,Cl/KCl oral sol 4 liter bottle PO ONE (05:00)
[2019-06-25 05:27] LABS: BASOPHILS # (AUTO) 0.1 X10'3 (0-0.2); BASOPHILS % (AUTO) 0.9 % (0-1); EOSINOPHILS # (AUTO) 0.2 X10'3 (0-0.9); EOSINOPHILS % (AUTO) 2.6 % (0-6); HEMATOCRIT 24.4 % (35.0-45.0); HEMOGLOBIN 8.6 g/dl (12.0-16.0); LYMPHOCYTES # (AUTO) 1.5 X10'3 (1.1-4.8); LYMPHOCYTES % (AUTO) 21.9 % (21-51); MEAN CORPUSCULAR HEMOGLOBIN 32.4 PG (27.0-31.0); MEAN CORPUSCULAR HGB CONC 35.4 g/dL (33.0-36.5); MEAN CORPUSCULAR VOLUME 91.7 FL (78-98); MEAN PLATELET VOLUME 10.1 FL (7.4-10.4); MONOCYTES # (AUTO) 0.4 X10'3 (0-0.9); MONOCYTES % (AUTO) 5.7 % (2-12); NEUTROPHILS # (AUTO) 4.6 X10'3 (1.8-7.7); NEUTROPHILS % (AUTO) 68.9 % (42-75); PLATELET COUNT 116 X10'3 (140-440); RED BLOOD COUNT 2.66 X10'6 (4.20-5.60); RED CELL DISTRIBUTION WIDTH 14.6 % (11.5-14.5); WHITE BLOOD COUNT 6.7 X10'3 (4.5-11.0)
--- NOTE | 2019-06-25 05:32 | NUR ---
Patient on bedpan this am had bloody stool, mostly blood very little stool. Dark blood mixed with bright red blood.
[2019-06-25 05:38] LABS: ALANINE AMINOTRANSFERASE 20 U/L (12-78); ALBUMIN 2.6 G/DL (3.4-5.0); ALKALINE PHOSPHATASE 47 IU/L (46-116); ANION GAP 8 (8-16); ASPARTATE AMINO TRANSFERASE 24 U/L (10-37); BILIRUBIN,TOTAL 1.1 MG/DL (0.1-1.0); BLOOD UREA NITROGEN 47 MG/DL (7-18); BUN/CREATININE RATIO 20.3 (6.6-38.0); CALCIUM 8.2 MG/DL (8.5-10.1); CHLORIDE 107 MMOL/L (99-107); CHOL/HDL RATIO 3.6 (0.00-4.99); CHOLESTEROL 113 MG/DL (0-200); CREATININE 2.31 MG/DL (0.40-0.90); GLUCOSE 170 MG/DL (70-104); HDL CHOLESTEROL 31 MG/DL (35-60); LDL CHOLESTEROL 61 MG/DL (50-100); MAGNESIUM 1.6 MG/DL (1.5-2.4); POTASSIUM 4.4 MMOL/L (3.5-5.1); SODIUM 141 MMOL/L (135-145); TOTAL CARBON DIOXIDE 25.9 MMOL/L (24-32); TOTAL PROTEIN 5.3 G/DL (6.4-8.2); TRIGLYCERIDES 213 MG/DL (20-135); eGFR 21 ML/MIN
[2019-06-25 06:00] VITALS: BP 158/46
--- NOTE | 2019-06-25 06:26 | NUR ---
Problems reprioritized. Patient report given, questions answered & plan of care reviewed with RICARDO Vasquez.
--- NOTE | 2019-06-25 06:33 | NUR ---
Patient in room PCU 3012. I have received report from RICARDO Raymundo and had the opportunity to ask questions and assume patient care. Patient currently resting in bed, bed locked and low, call light in reach. No acute distress, will continue to monitor.
[2019-06-25] MEDS: lisinopril 5mg tablet PO SCH (07:22)
[2019-06-25] MEDS: levoTHYROXINE 100mcg tablet PO SCH (07:22)
[2019-06-25] MEDS: furosemide 40mg tablet PO SCH (07:23)
[2019-06-25] MEDS: FLUoxetine 20mg capsule PO SCH ×2 (07:23→20:00)
[2019-06-25] MEDS: ferrous sulfate 325mg tablet PO SCH (07:23)
[2019-06-25] MEDS: pantoprazole 40mg Tablet.DR PO SCH (07:24)
[2019-06-25] MEDS: ascorbic acid 500mg tablet PO SCH (07:24)
[2019-06-25] MEDS: amiodarone 200mg tablet PO SCH (07:25)
[2019-06-25] MEDS: bisacodyl 5mg tablet.DR PO SCH ×2 (07:25→19:59)
[2019-06-25] MEDS: carVEDilol 12.5mg tablet PO SCH (07:25)
[2019-06-25] MEDS: OMEGA-3/DHA/EPA/FISH OIL 1 EACH CAPSULE.DR PO SCH (07:31)
[2019-06-25] MEDS: digoxin 125mcg (0.125mg) tablet PO SCH (07:32)
[2019-06-25] MEDS: potassium Cl 20 mEq SR tablet PO SCH (07:32)
[2019-06-25] MEDS: K and/or MAG REPLACEMENT MC SCH (08:00)
[2019-06-25] MEDS: calcium carbonate 500mg tablet PO SCH (08:00)
[2019-06-25] MEDS: multivitamins, therapeutics tablet PO SCH (08:00)
[2019-06-25 11:00] VITALS: BP 149/37
--- NOTE | 2019-06-25 12:01 | NUR ---
DM consult: Pt with A1c 7.5 seen at bedside. Pt reports she generally takes her insulin per rx however often will forget to take her short acting insulin. Per pt she usually has her short acting insulin in eye view when she's supposed to take it however still forgets. RD encouraged pt to take her DM meds per rx to prevent continuing raise in A1c. Written and verbal DM education with referral to outpatient DM class provided. Pt with no questions at this time. RD contact information provided. Pt reports she doesn't have much of an appetite r/t drinking GoLytely. Pt denies any food allergies or difficulty chewing/swallowing. Will continue to follow. Addendum: 06/25/19 at [address] Amended: Links added.
--- NOTE | 2019-06-25 14:43 | NUR ---
PAGER ID: [phone] MESSAGE: RICARDO Vasquez, ext [phone], [phone], Chris, patient reports she is starting to feel light headed, do you want a CBC? She is still trying to finish bowel prep.
[2019-06-25 15:00] VITALS: BP 167/45
[2019-06-25 15:23] LABS: HEMATOCRIT 26.3 % (35.0-45.0); HEMOGLOBIN 9.2 g/dl (12.0-16.0); MEAN CORPUSCULAR HEMOGLOBIN 31.4 PG (27.0-31.0); MEAN CORPUSCULAR HGB CONC 34.8 g/dL (33.0-36.5); MEAN CORPUSCULAR VOLUME 90.3 FL (78-98); MEAN PLATELET VOLUME 10.2 FL (7.4-10.4); PLATELET COUNT 138 X10'3 (140-440); RED BLOOD COUNT 2.92 X10'6 (4.20-5.60); RED CELL DISTRIBUTION WIDTH 14.3 % (11.5-14.5); WHITE BLOOD COUNT 8.9 X10'3 (4.5-11.0)
[2019-06-25 18:00] VITALS: BP 157/89
--- NOTE | 2019-06-25 18:21 | NUR ---
Patient in room PCU 3012. I have received report from Christina SILVA and had the opportunity to ask questions and assume patient care.
--- NOTE | 2019-06-25 18:21 | NUR ---
Problems reprioritized. Patient report given, questions answered & plan of care reviewed with RICARDO Grier.
[2019-06-25] MEDS: gabapentin 300mg capsule PO SCH (20:00)
[2019-06-25] MEDS: DESVENLAFAXINE SUCCINATE 25 MG PO SCH (20:00)
[2019-06-25] MEDS: atorvastatin 20mg tablet PO SCH (20:00)
[2019-06-25] MEDS: insulin glargine (Lantus) pen - multi-dose SQ SCH (20:51)
[2019-06-25 22:00] VITALS: BP 159/49
[2019-06-26] VITALS (25 sets, daily range): BP systolic 116–181; BP diastolic 33–69
[2019-06-26] MEDS: pantoprazole 40MG/NS 100ML BAG 100 ML IV SCH ×5 (00:14→21:04)
[2019-06-26] MEDS ORDERED: magnesium citrate 296ml oral solution PO ONE (06:00)
[2019-06-26 06:05] LABS: BASOPHILS % (AUTO) 0.6 % (0-1); EOSINOPHILS # (AUTO) 0.2 X10'3 (0-0.9); EOSINOPHILS % (AUTO) 2.6 % (0-6); HEMOGLOBIN 7.3 g/dl (12.0-16.0); LYMPHOCYTES # (AUTO) 1.1 X10'3 (1.1-4.8); LYMPHOCYTES % (AUTO) 16.6 % (21-51); MEAN CORPUSCULAR HEMOGLOBIN 31.9 PG (27.0-31.0); MEAN CORPUSCULAR HGB CONC 34.8 g/dL (33.0-36.5); MEAN CORPUSCULAR VOLUME 91.5 FL (78-98); MEAN PLATELET VOLUME 10.3 FL (7.4-10.4); MONOCYTES # (AUTO) 0.3 X10'3 (0-0.9); MONOCYTES % (AUTO) 4.5 % (2-12); NEUTROPHILS # (AUTO) 5.2 X10'3 (1.8-7.7); NEUTROPHILS % (AUTO) 75.7 % (42-75); PLATELET COUNT 132 X10'3 (140-440); RED BLOOD COUNT 2.29 X10'6 (4.20-5.60); RED CELL DISTRIBUTION WIDTH 14.5 % (11.5-14.5); WHITE BLOOD COUNT 6.9 X10'3 (4.5-11.0)
[2019-06-26 06:09] LABS: HEMATOCRIT 20.9 % (35.0-45.0)
--- NOTE | 2019-06-26 06:10 | NUR ---
Problems reprioritized. Patient report given, questions answered & plan of care reviewed with Christina SILVA.
--- NOTE | 2019-06-26 06:15 | NUR ---
PAGER ID: [phone] MESSAGE: RICARDO Vasquez, ext [phone], [phone], Chris, Received critical value: H&H 7.3/20.9, pt to go to GI lab today for colonoscopy.
[2019-06-26 07:03] LABS: ALANINE AMINOTRANSFERASE 15 U/L (12-78); ALBUMIN 2.5 G/DL (3.4-5.0); ALKALINE PHOSPHATASE 47 IU/L (46-116); ANION GAP 11 (8-16); ASPARTATE AMINO TRANSFERASE 29 U/L (10-37); BILIRUBIN,TOTAL 0.5 MG/DL (0.1-1.0); BLOOD UREA NITROGEN 36 MG/DL (7-18); BUN/CREATININE RATIO 17.1 (6.6-38.0); CHLORIDE 106 MMOL/L (99-107); GLUCOSE 135 MG/DL (70-104); MAGNESIUM 1.4 MG/DL (1.5-2.4); POTASSIUM 4.2 MMOL/L (3.5-5.1); SODIUM 142 MMOL/L (135-145); TOTAL CARBON DIOXIDE 24.7 MMOL/L (24-32); TOTAL PROTEIN 5.1 G/DL (6.4-8.2); eGFR 24 ML/MIN
--- NOTE | 2019-06-26 07:03 | NUR ---
PAGER ID: [phone] MESSAGE: RICARDO Vasquez, ext [phone], [phone], Chris, received critical value H/H=7.3/20.9, active GI bleed going for colonoscopy today.
[2019-06-26] MEDS: levoTHYROXINE 100mcg tablet PO SCH (07:59)
[2019-06-26] MEDS: amiodarone 200mg tablet PO SCH (07:59)
[2019-06-26] MEDS: ferrous sulfate 325mg tablet PO SCH (07:59)
[2019-06-26] MEDS: pantoprazole 40mg Tablet.DR PO SCH (07:59)
[2019-06-26] MEDS: lisinopril 5mg tablet PO SCH (07:59)
[2019-06-26] MEDS: furosemide 40mg tablet PO SCH (07:59)
[2019-06-26] MEDS: ascorbic acid 500mg tablet PO SCH (07:59)
[2019-06-26] MEDS: FLUoxetine 20mg capsule PO SCH ×2 (08:00→20:57)
[2019-06-26] MEDS: K and/or MAG REPLACEMENT MC SCH (08:00)
[2019-06-26] MEDS: multivitamins, therapeutics tablet PO SCH (08:00)
[2019-06-26] MEDS: bisacodyl 5mg tablet.DR PO SCH (08:00)
[2019-06-26] MEDS: digoxin 125mcg (0.125mg) tablet PO SCH (08:01)
[2019-06-26] MEDS: OMEGA-3/DHA/EPA/FISH OIL 1 EACH CAPSULE.DR PO SCH (08:03)
[2019-06-26] MEDS: potassium Cl 20 mEq SR tablet PO SCH (08:03)
[2019-06-26] MEDS: calcium carbonate 500mg tablet PO SCH (08:03)
[2019-06-26] MEDS ORDERED: MIDAZolam 5mg/5ml vial ONE (12:39)
[2019-06-26] MEDS ORDERED: fentaNYL/PF 50MCG/1 ML 2ML syringe ONE ×2 (12:39→14:02)
[2019-06-26 12:46] LABS: HEMATOCRIT 26.7 % (35.0-45.0); HEMOGLOBIN 9.1 g/dl (12.0-16.0); MEAN CORPUSCULAR HEMOGLOBIN 30.9 PG (27.0-31.0); MEAN CORPUSCULAR HGB CONC 34.1 g/dL (33.0-36.5); MEAN CORPUSCULAR VOLUME 90.6 FL (78-98); MEAN PLATELET VOLUME 10.2 FL (7.4-10.4); PLATELET COUNT 166 X10'3 (140-440); RED BLOOD COUNT 2.95 X10'6 (4.20-5.60); RED CELL DISTRIBUTION WIDTH 14.9 % (11.5-14.5)
--- NOTE | 2019-06-26 16:08 | NUR ---
PAGER ID: [phone] MESSAGE: Christina RN, ext [phone], [id number], Chris, pt back from GI lab, did you want to continue IV pantoprazole? source of bleed is diverticulosis. hgb was 9.2, hold second unit PRBCs?
--- NOTE | 2019-06-26 18:10 | NUR ---
Patient in room PCU 3012B. I have received report from RICARDO Vasquez and had the opportunity to ask questions and assume patient care. Patient denies CP, SOB, n/v/, SPO2 is 95% in 1L via nasal canula, pain is 0/10. No signs of bleeding
--- NOTE | 2019-06-26 18:19 | NUR ---
Problems reprioritized. Patient report given, questions answered & plan of care reviewed with RICARDO Smith.
--- NOTE | 2019-06-26 18:20 | NUR ---
Problems reprioritized. Patient report given, questions answered & plan of care reviewed with RICARDO Mak.
--- NOTE | 2019-06-26 20:45 | NUR ---
Called pharmacy to inform them that home medication Desvenlafaxine was not in patients bin. I informed the patient as well.
[2019-06-26] MEDS: gabapentin 300mg capsule PO SCH (20:57)
[2019-06-26] MEDS: atorvastatin 20mg tablet PO SCH (20:57)
[2019-06-26] MEDS: insulin glargine (Lantus) pen - multi-dose SQ SCH (21:00)
[2019-06-26] MEDS: DESVENLAFAXINE SUCCINATE 25 MG PO SCH (21:00)
[2019-06-27] VITALS (12 sets, daily range): BP systolic 118–160; BP diastolic 29–96
[2019-06-27] MEDS: pantoprazole 40MG/NS 100ML BAG 100 ML IV SCH ×5 (01:00→19:22)
[2019-06-27 05:15] LABS: BASOPHILS % (AUTO) 0.6 % (0-1); EOSINOPHILS # (AUTO) 0.3 X10'3 (0-0.9); EOSINOPHILS % (AUTO) 4.8 % (0-6); HEMATOCRIT 23.8 % (35.0-45.0); HEMOGLOBIN 8.2 g/dl (12.0-16.0); LYMPHOCYTES # (AUTO) 1.2 X10'3 (1.1-4.8); MEAN CORPUSCULAR HEMOGLOBIN 31.1 PG (27.0-31.0); MEAN CORPUSCULAR HGB CONC 34.4 g/dL (33.0-36.5); MEAN CORPUSCULAR VOLUME 90.2 FL (78-98); MEAN PLATELET VOLUME 9.9 FL (7.4-10.4); MONOCYTES # (AUTO) 0.3 X10'3 (0-0.9); MONOCYTES % (AUTO) 5.2 % (2-12); NEUTROPHILS # (AUTO) 4.7 X10'3 (1.8-7.7); NEUTROPHILS % (AUTO) 71.4 % (42-75); PLATELET COUNT 142 X10'3 (140-440); RED BLOOD COUNT 2.63 X10'6 (4.20-5.60); RED CELL DISTRIBUTION WIDTH 15.5 % (11.5-14.5); WHITE BLOOD COUNT 6.6 X10'3 (4.5-11.0)
[2019-06-27 05:38] LABS: ALANINE AMINOTRANSFERASE 20 U/L (12-78); ALBUMIN 2.6 G/DL (3.4-5.0); ALKALINE PHOSPHATASE 48 IU/L (46-116); ANION GAP 10 (8-16); ASPARTATE AMINO TRANSFERASE 24 U/L (10-37); BILIRUBIN,TOTAL 0.5 MG/DL (0.1-1.0); BLOOD UREA NITROGEN 30 MG/DL (7-18); BUN/CREATININE RATIO 15.8 (6.6-38.0); CALCIUM 8.7 MG/DL (8.5-10.1); CHLORIDE 109 MMOL/L (99-107); GLUCOSE 124 MG/DL (70-104); MAGNESIUM 1.6 MG/DL (1.5-2.4); POTASSIUM 4.2 MMOL/L (3.5-5.1); SODIUM 144 MMOL/L (135-145); TOTAL CARBON DIOXIDE 25.5 MMOL/L (24-32); TOTAL PROTEIN 5.2 G/DL (6.4-8.2); eGFR 27 ML/MIN
--- NOTE | 2019-06-27 06:29 | NUR ---
Problems reprioritized. Patient report given, questions answered & plan of care reviewed with RICARDO Reeder. Pt stable at shift change
--- NOTE | 2019-06-27 06:35 | NUR ---
Patient in room PCU 3012. I have received report from Obdulio SILVA and had the opportunity to ask questions and assume patient care.
[2019-06-27] MEDS: K and/or MAG REPLACEMENT MC SCH (08:00)
[2019-06-27] MEDS: OMEGA-3/DHA/EPA/FISH OIL 1 EACH CAPSULE.DR PO SCH (08:02)
[2019-06-27] MEDS: pantoprazole 40mg Tablet.DR PO SCH (08:02)
[2019-06-27] MEDS: potassium Cl 20 mEq SR tablet PO SCH (08:03)
[2019-06-27] MEDS: levoTHYROXINE 100mcg tablet PO SCH (08:03)
[2019-06-27] MEDS: multivitamins, therapeutics tablet PO SCH (08:03)
[2019-06-27] MEDS: amiodarone 200mg tablet PO SCH (08:03)
[2019-06-27] MEDS: ascorbic acid 500mg tablet PO SCH (08:03)
[2019-06-27] MEDS: FLUoxetine 20mg capsule PO SCH ×2 (08:03→21:14)
[2019-06-27] MEDS: digoxin 125mcg (0.125mg) tablet PO SCH (08:04)
[2019-06-27] MEDS: furosemide 40mg tablet PO SCH (08:04)
[2019-06-27] MEDS: calcium carbonate 500mg tablet PO SCH (08:04)
[2019-06-27] MEDS: ferrous sulfate 325mg tablet PO SCH (08:04)
[2019-06-27] MEDS: lisinopril 5mg tablet PO SCH (08:06)
--- NOTE | 2019-06-27 09:34 | NUR ---
Page Dr. Grimes: PAGER ID: [phone] MESSAGE: Room 3012B Mari Perez: Patient passed blood clot with bright red blood rectally, FYI. Thank you, Lilli ext [phone].
[2019-06-27] MEDS ORDERED: iohexol 350MG/ML 100ml bottle IV ONE (15:16)
[2019-06-27] MEDS ORDERED: midazolam 2 mg/2 ml injection ONE ×2 (17:31→18:05)
[2019-06-27] MEDS ORDERED: fentaNYL/PF 50MCG/1 ML 2ML syringe ONE ×2 (17:31→18:06)
[2019-06-27] MEDS ORDERED: heparin 1,000 UNITS/NS 500ml 500 ML ONE (17:31)
[2019-06-27] MEDS ORDERED: LIDOcaine 1%/PF 5ML 10 MG/ML VIAL ONE (17:31)
[2019-06-27] MEDS ORDERED: iohexol 300mg/ml 100ml inj. ONE (17:32)
--- NOTE | 2019-06-27 18:20 | NUR ---
Patient in room PCU 3012B. I have received report from RICARDO Reeder and had the opportunity to ask questions and assume patient care. Patient is in IR undergoing a mesenteric angiogram.
--- NOTE | 2019-06-27 18:20 | NUR ---
Problems reprioritized. Patient report given, questions answered & plan of care reviewed with Obdulio SILVA. Patient getting angiogram during report.
--- NOTE | 2019-06-27 19:42 | NUR ---
Page Sent to Dr. Mariano promotional table spacer PAGER ID: [phone] MESSAGE: Mari Perez Room 3012B: DX: Jann Aldridge Underwent a mesenteric angiography today She is currently in a carb control diet. However, IR advised to have her back on a clear liquid diet. Please advise. Thank you Obdulio
[2019-06-27] MEDS: insulin glargine (Lantus) pen - multi-dose SQ SCH (21:00)
[2019-06-27] MEDS: atorvastatin 20mg tablet PO SCH (21:13)
[2019-06-27] MEDS: gabapentin 300mg capsule PO SCH (21:13)
[2019-06-27] MEDS: carVEDilol 12.5mg tablet PO SCH (21:14)
[2019-06-28] VITALS (17 sets, daily range): BP systolic 118–153; BP diastolic 30–60
[2019-06-28] MEDS: pantoprazole 40MG/NS 100ML BAG 100 ML IV SCH ×5 (01:46→23:06)
--- NOTE | 2019-06-28 06:15 | NUR ---
Patient in room PCU 3012. I have received report from Obdulio SILVA and had the opportunity to ask questions and assume patient care.
--- NOTE | 2019-06-28 06:24 | NUR ---
Problems reprioritized. Patient report given, questions answered & plan of care reviewed with RICARDO Reeder. Pt stable at shift change
[2019-06-28 06:32] LABS: ALANINE AMINOTRANSFERASE 17 U/L (12-78); ALBUMIN 2.4 G/DL (3.4-5.0); ALBUMIN/GLOBULIN RATIO 0.9 (1.1-1.5); ALKALINE PHOSPHATASE 46 IU/L (46-116); ANION GAP 9 (8-16); ASPARTATE AMINO TRANSFERASE 20 U/L (10-37); BILIRUBIN,TOTAL 0.4 MG/DL (0.1-1.0); BLOOD UREA NITROGEN 24 MG/DL (7-18); BUN/CREATININE RATIO 11.5 (6.6-38.0); CALCIUM 8.3 MG/DL (8.5-10.1); CHLORIDE 108 MMOL/L (99-107); CREATININE 2.09 MG/DL (0.40-0.90); GLUCOSE 137 MG/DL (70-104); MAGNESIUM 1.5 MG/DL (1.5-2.4); POTASSIUM 4.2 MMOL/L (3.5-5.1); SODIUM 143 MMOL/L (135-145); TOTAL CARBON DIOXIDE 26.5 MMOL/L (24-32); eGFR 24 ML/MIN
[2019-06-28 06:38] LABS: BASOPHILS % (AUTO) 0.8 % (0-1); EOSINOPHILS # (AUTO) 0.3 X10'3 (0-0.9); EOSINOPHILS % (AUTO) 5.3 % (0-6); LYMPHOCYTES # (AUTO) 0.9 X10'3 (1.1-4.8); LYMPHOCYTES % (AUTO) 14.8 % (21-51); MEAN CORPUSCULAR HEMOGLOBIN 31.1 PG (27.0-31.0); MEAN CORPUSCULAR HGB CONC 33.8 g/dL (33.0-36.5); MEAN CORPUSCULAR VOLUME 92.2 FL (78-98); MEAN PLATELET VOLUME 10.1 FL (7.4-10.4); MONOCYTES # (AUTO) 0.3 X10'3 (0-0.9); MONOCYTES % (AUTO) 5.6 % (2-12); NEUTROPHILS # (AUTO) 4.5 X10'3 (1.8-7.7); NEUTROPHILS % (AUTO) 73.5 % (42-75); PLATELET COUNT 147 X10'3 (140-440); RED BLOOD COUNT 2.18 X10'6 (4.20-5.60); RED CELL DISTRIBUTION WIDTH 15.9 % (11.5-14.5); WHITE BLOOD COUNT 6.2 X10'3 (4.5-11.0)
[2019-06-28 06:43] LABS: HEMATOCRIT 20.1 % (35.0-45.0); HEMOGLOBIN 6.8 g/dl (12.0-16.0)
--- NOTE | 2019-06-28 06:45 | NUR ---
Received critical H/H from lab, notified primary RICARDO Reeder.
--- NOTE | 2019-06-28 06:49 | NUR ---
Page: Dr. Mariano PAGER ID: [phone] MESSAGE: Room 3012B Mari Perez: Patient's Hgb 6.8 & Hct 20.1 this morning. Down from Hgb 8.2 and Hct 23.8. Thank you, Lilli.
--- NOTE | 2019-06-28 06:54 | NUR ---
Spoke with Dr. Mariano regarding patient's Hgb/Hct. Ordered one unit of PRBC and to do a repeat Hgb/Hct 2-3 hours after infusion is complete.
[2019-06-28] MEDS: carVEDilol 12.5mg tablet PO SCH ×2 (07:11→20:09)
[2019-06-28] MEDS: potassium Cl 20 mEq SR tablet PO SCH (07:12)
[2019-06-28] MEDS: FLUoxetine 20mg capsule PO SCH ×2 (07:12→20:09)
[2019-06-28] MEDS: pantoprazole 40mg Tablet.DR PO SCH (07:14)
[2019-06-28] MEDS: levoTHYROXINE 100mcg tablet PO SCH (07:14)
[2019-06-28] MEDS: furosemide 40mg tablet PO SCH (07:14)
[2019-06-28] MEDS: digoxin 125mcg (0.125mg) tablet PO SCH (07:14)
[2019-06-28] MEDS: ferrous sulfate 325mg tablet PO SCH (07:15)
[2019-06-28] MEDS: lisinopril 5mg tablet PO SCH (07:15)
[2019-06-28] MEDS: ascorbic acid 500mg tablet PO SCH (07:16)
[2019-06-28] MEDS: amiodarone 200mg tablet PO SCH (07:16)
[2019-06-28] MEDS: calcium carbonate 500mg tablet PO SCH (07:16)
[2019-06-28] MEDS: multivitamins, therapeutics tablet PO SCH (07:16)
[2019-06-28] MEDS: K and/or MAG REPLACEMENT MC SCH (08:00)
[2019-06-28] MEDS: OMEGA-3/DHA/EPA/FISH OIL 1 EACH CAPSULE.DR PO SCH (08:24)
--- NOTE | 2019-06-28 10:07 | NUR ---
Spoke with Dr. Grimes regarding patient's condition. Ordered two more units of PRBC and repeat Hgb/Hct 2 hours after each unit of infusion.
[2019-06-28 14:27] LABS: HEMOGLOBIN 7.4 g/dl (12.0-16.0); MEAN CORPUSCULAR HGB CONC 33.8 g/dL (33.0-36.5); MEAN CORPUSCULAR VOLUME 91.5 FL (78-98); MEAN PLATELET VOLUME 9.9 FL (7.4-10.4); PLATELET COUNT 137 X10'3 (140-440); WHITE BLOOD COUNT 7.1 X10'3 (4.5-11.0)
--- NOTE | 2019-06-28 14:36 | NUR ---
Page Dr. Grimes PAGER ID: [phone] MESSAGE: Room 3012B Linnea Perez: Patient's Hgb: 7.4 and Hct: 22.0 results after 1st infusion of PRBC's. Thank you, Lilli ext [phone].
--- NOTE | 2019-06-28 18:24 | NUR ---
Patient in room PCU 3012B. I have received report from RICARDO Mills and had the opportunity to ask questions and assume patient care. Pt is A & O X4, denies CP, dizziness, SOB, n/v, and rated pain 0/10. There is an order for a hemogram lab due at 2014.
[2019-06-28] MEDS: atorvastatin 20mg tablet PO SCH (20:09)
[2019-06-28] MEDS: gabapentin 300mg capsule PO SCH (20:09)
[2019-06-28 20:56] LABS: HEMATOCRIT 23.2 % (35.0-45.0); MEAN CORPUSCULAR HEMOGLOBIN 30.3 PG (27.0-31.0); MEAN CORPUSCULAR HGB CONC 34.3 g/dL (33.0-36.5); MEAN CORPUSCULAR VOLUME 88.4 FL (78-98); MEAN PLATELET VOLUME 9.9 FL (7.4-10.4); PLATELET COUNT 124 X10'3 (140-440); RED BLOOD COUNT 2.63 X10'6 (4.20-5.60); RED CELL DISTRIBUTION WIDTH 16.6 % (11.5-14.5); WHITE BLOOD COUNT 6.7 X10'3 (4.5-11.0)
[2019-06-28] MEDS: insulin glargine (Lantus) pen - multi-dose SQ SCH (21:00)
[2019-06-29] MEDS: pantoprazole 40MG/NS 100ML BAG 100 ML IV SCH ×3 (01:00→10:56)
[2019-06-29 02:00] VITALS: BP 130/44
[2019-06-29 02:20] LABS: BASOPHILS # (AUTO) 0.1 X10'3 (0-0.2); BASOPHILS % (AUTO) 0.7 % (0-1); EOSINOPHILS # (AUTO) 0.3 X10'3 (0-0.9); HEMATOCRIT 24.1 % (35.0-45.0); HEMOGLOBIN 8.2 g/dl (12.0-16.0); LYMPHOCYTES # (AUTO) 0.9 X10'3 (1.1-4.8); LYMPHOCYTES % (AUTO) 12.5 % (21-51); MEAN CORPUSCULAR HEMOGLOBIN 30.6 PG (27.0-31.0); MEAN CORPUSCULAR VOLUME 89.9 FL (78-98); MEAN PLATELET VOLUME 9.9 FL (7.4-10.4); MONOCYTES # (AUTO) 0.3 X10'3 (0-0.9); MONOCYTES % (AUTO) 4.5 % (2-12); NEUTROPHILS # (AUTO) 5.4 X10'3 (1.8-7.7); NEUTROPHILS % (AUTO) 77.3 % (42-75); PLATELET COUNT 131 X10'3 (140-440); RED BLOOD COUNT 2.68 X10'6 (4.20-5.60); RED CELL DISTRIBUTION WIDTH 16.4 % (11.5-14.5)
[2019-06-29 02:27] LABS: ALANINE AMINOTRANSFERASE 14 U/L (12-78); ALBUMIN 2.4 G/DL (3.4-5.0); ALKALINE PHOSPHATASE 46 IU/L (46-116); ANION GAP 9 (8-16); ASPARTATE AMINO TRANSFERASE 21 U/L (10-37); BILIRUBIN,TOTAL 0.9 MG/DL (0.1-1.0); BLOOD UREA NITROGEN 24 MG/DL (7-18); BUN/CREATININE RATIO 11.3 (6.6-38.0); CALCIUM 7.7 MG/DL (8.5-10.1); CHLORIDE 108 MMOL/L (99-107); CREATININE 2.12 MG/DL (0.40-0.90); GLUCOSE 150 MG/DL (70-104); MAGNESIUM 1.3 MG/DL (1.5-2.4); SODIUM 141 MMOL/L (135-145); TOTAL CARBON DIOXIDE 24.5 MMOL/L (24-32); TOTAL PROTEIN 4.9 G/DL (6.4-8.2); eGFR 24 ML/MIN
[2019-06-29 06:00] VITALS: BP 129/39
--- NOTE | 2019-06-29 06:10 | NUR ---
Problems reprioritized. Patient report given, questions answered & plan of care reviewed with RICARDO Etienne. Pt stable at shift change
--- NOTE | 2019-06-29 06:20 | NUR ---
Patient in room PCU 3012. I have received report from Obdulio SILVA and had the opportunity to ask questions and assume patient care.
--- NOTE | 2019-06-29 06:36 | NUR ---
Patient in room PCU 3011. I have received report from Obdulio SILVA and had the opportunity to ask questions and assume patient care.
[2019-06-29] MEDS: OMEGA-3/DHA/EPA/FISH OIL 1 EACH CAPSULE.DR PO SCH (07:59)
[2019-06-29] MEDS: ferrous sulfate 325mg tablet PO SCH (08:00)
[2019-06-29] MEDS: ascorbic acid 500mg tablet PO SCH (08:00)
[2019-06-29] MEDS: pantoprazole 40mg Tablet.DR PO SCH (08:00)
[2019-06-29] MEDS: potassium Cl 20 mEq SR tablet PO SCH (08:00)
[2019-06-29] MEDS: K and/or MAG REPLACEMENT MC SCH (08:00)
[2019-06-29] MEDS: calcium carbonate 500mg tablet PO SCH (08:00)
[2019-06-29] MEDS: levoTHYROXINE 100mcg tablet PO SCH (08:00)
[2019-06-29] MEDS: multivitamins, therapeutics tablet PO SCH (08:00)
[2019-06-29] MEDS: FLUoxetine 20mg capsule PO SCH ×2 (08:01→20:28)
[2019-06-29] MEDS: furosemide 40mg tablet PO SCH (08:01)
[2019-06-29] MEDS: amiodarone 200mg tablet PO SCH (08:01)
[2019-06-29] MEDS: digoxin 125mcg (0.125mg) tablet PO SCH (08:04)
[2019-06-29] MEDS: lisinopril 5mg tablet PO SCH (08:05)
[2019-06-29] MEDS: carVEDilol 12.5mg tablet PO SCH ×2 (08:05→20:00)
--- NOTE | 2019-06-29 09:32 | NUR ---
Dr. Mariano at the bedside, updating patient on plan of care and addressing all questions/concerns. New orders for Mag/K+ replacement, incentive spirometer, and PT (to be done once brings foot brace from home).
[2019-06-29] MEDS ORDERED: magnesium 4gm in 100ml NS 100 ML IV PRN (10:25)
[2019-06-29] MEDS ORDERED: potassium CL 10mEq/100ml bag 100 ML IV PRN (10:25)
[2019-06-29] MEDS ORDERED: potassium Cl 20 mEq SR tablet PO PRN ×2 (10:25)
[2019-06-29] MEDS: magnesium Cl slow-release 64mg tablet PO PRN (10:55)
[2019-06-29 11:00] VITALS: BP 110/49
--- NOTE | 2019-06-29 12:11 | NUR ---
Paged Dr. Mariano regarding fish oil PAGER ID: [phone] MESSAGE: Breezy 301Philip Sánchez. Dietitian called and asked if you would you like to hold daily fish oil, due to potential to thin the blood? Thanks! Elodia SILVA [phone]
--- NOTE | 2019-06-29 12:27 | NUR ---
Initial: Pt admit w/ acute sigmoid GIB s/p EGD showing gastric polyps. Previously 0-25% PO carb controlled diet on initial admit; now placed on clear liquid diet PO 75% first meal today. S/p mesenteric angiogram 06/27 showing now active bleed and per MD note. LBM 06/27. Pt is receiving fish oil; TOMMY d/w RN regarding holding per MD approval since potential to exacerbate bleed. Will monitor for diet advancement and additional ONS needs; unable to provide ensure clears w/ DM hx. Rec: 1. advance diet per MD to carb controlled 2. monitor for ONS needs as diet advances 3. consider holding fish oil given GIB per MD approval 4. wt per rx Addendum: 06/29/19 at [address] Amended: Links added.
[2019-06-29 15:00] VITALS: BP 127/61
[2019-06-29 16:38] LABS: BASOPHILS % (AUTO) 0.3 % (0-1); EOSINOPHILS # (AUTO) 0.3 X10'3 (0-0.9); EOSINOPHILS % (AUTO) 4.4 % (0-6); HEMOGLOBIN 7.9 g/dl (12.0-16.0); LYMPHOCYTES # (AUTO) 1.3 X10'3 (1.1-4.8); LYMPHOCYTES % (AUTO) 18.1 % (21-51); MEAN CORPUSCULAR HEMOGLOBIN 30.9 PG (27.0-31.0); MEAN CORPUSCULAR HGB CONC 34.5 g/dL (33.0-36.5); MEAN CORPUSCULAR VOLUME 89.5 FL (78-98); MEAN PLATELET VOLUME 10.2 FL (7.4-10.4); MONOCYTES # (AUTO) 0.4 X10'3 (0-0.9); NEUTROPHILS # (AUTO) 5.1 X10'3 (1.8-7.7); NEUTROPHILS % (AUTO) 72.2 % (42-75); PLATELET COUNT 142 X10'3 (140-440); RED BLOOD COUNT 2.57 X10'6 (4.20-5.60); RED CELL DISTRIBUTION WIDTH 16.1 % (11.5-14.5)
--- NOTE | 2019-06-29 17:45 | NUR ---
Sent page to Dr. Montserrat huizar /H PAGER ID: [phone] MESSAGE: Breezy [id number], Philip Perez. New /, hgb down 0.3 points from last draw. Can I put in a [facility] nursing order to transfuse if hbg below 7, thanks! Elodia SILVA [phone] Addendum: 06/29/19 at 1755 by Zeenat Owens RN Per Dr. Mariano, yes, transfuse if hgb less than 7. Miscellaneous nursing order put in.
--- NOTE | 2019-06-29 17:49 | NUR ---
Orientee documentation: I have reviewed and agree with interventions, assessments performed and documented by Elodia SILVA. Orientee Medication Administration: For this medication-pass time frame, medication were reviewed, dispensed, administered and documented per hospital policy by Elodia SILVA.
[2019-06-29 18:00] VITALS: BP 114/37
--- NOTE | 2019-06-29 18:14 | NUR ---
Problems reprioritized. Patient report given, questions answered & plan of care reviewed with Obdulio SILVA.
--- NOTE | 2019-06-29 18:14 | NUR ---
Problems reprioritized. Patient report given, questions answered & plan of care reviewed with Obdulio SILVA.
--- NOTE | 2019-06-29 18:15 | NUR ---
Patient in room PCU 3012B. I have received report from RICARDO Etienne and had the opportunity to ask questions and assume patient care. Patient denies CP, dizziness, n/v, rated pain 0/10, and SPO2 has remain > 90% in RA. Will keep monitoring H/H
--- NOTE | 2019-06-29 19:34 | NUR ---
Only order for lab draw for 06/30/19 at [address] Lulu gross to order CBC/Diff and CMP labs.
[2019-06-29] MEDS: atorvastatin 20mg tablet PO SCH (20:28)
[2019-06-29] MEDS: gabapentin 300mg capsule PO SCH (20:28)
[2019-06-29] MEDS: insulin glargine (Lantus) pen - multi-dose SQ SCH (21:00)
[2019-06-29 22:00] VITALS: BP 146/48
[2019-06-30 02:00] VITALS: BP 155/40
[2019-06-30 05:43] LABS: BASOPHILS % (AUTO) 0.8 % (0-1); EOSINOPHILS # (AUTO) 0.3 X10'3 (0-0.9); EOSINOPHILS % (AUTO) 4.7 % (0-6); HEMOGLOBIN 7.5 g/dl (12.0-16.0); LYMPHOCYTES % (AUTO) 15.9 % (21-51); MEAN CORPUSCULAR HEMOGLOBIN 30.9 PG (27.0-31.0); MEAN CORPUSCULAR HGB CONC 33.9 g/dL (33.0-36.5); MEAN CORPUSCULAR VOLUME 90.9 FL (78-98); MONOCYTES # (AUTO) 0.3 X10'3 (0-0.9); MONOCYTES % (AUTO) 4.8 % (2-12); NEUTROPHILS # (AUTO) 4.5 X10'3 (1.8-7.7); NEUTROPHILS % (AUTO) 73.8 % (42-75); PLATELET COUNT 138 X10'3 (140-440); RED BLOOD COUNT 2.42 X10'6 (4.20-5.60); RED CELL DISTRIBUTION WIDTH 16.3 % (11.5-14.5); WHITE BLOOD COUNT 6.1 X10'3 (4.5-11.0)
--- NOTE | 2019-06-30 05:54 | NUR ---
Called Dr. Lawson to inform him that patient's HCT is 22.0 and Hgb is 7.5. No instructions were given
[2019-06-30 05:57] LABS: ALANINE AMINOTRANSFERASE 13 U/L (12-78); ALBUMIN 2.4 G/DL (3.4-5.0); ALKALINE PHOSPHATASE 46 IU/L (46-116); ANION GAP 6 (8-16); ASPARTATE AMINO TRANSFERASE 20 U/L (10-37); BILIRUBIN,TOTAL 0.5 MG/DL (0.1-1.0); BLOOD UREA NITROGEN 24 MG/DL (7-18); BUN/CREATININE RATIO 11.3 (6.6-38.0); CALCIUM 8.3 MG/DL (8.5-10.1); CHLORIDE 108 MMOL/L (99-107); CREATININE 2.12 MG/DL (0.40-0.90); GLUCOSE 139 MG/DL (70-104); MAGNESIUM 1.5 MG/DL (1.5-2.4); POTASSIUM 4.1 MMOL/L (3.5-5.1); SODIUM 140 MMOL/L (135-145); TOTAL CARBON DIOXIDE 25.8 MMOL/L (24-32); TOTAL PROTEIN 4.9 G/DL (6.4-8.2); eGFR 24 ML/MIN
[2019-06-30 06:00] VITALS: BP 144/46
--- NOTE | 2019-06-30 06:16 | NUR ---
Problems reprioritized. Patient report given, questions answered & plan of care reviewed with RICARDO Etienne.
--- NOTE | 2019-06-30 06:16 | NUR ---
Patient in room PCU 3012. I have received report from Obdulio SILVA and had the opportunity to ask questions and assume patient care.
[2019-06-30] MEDS: K and/or MAG REPLACEMENT MC SCH (06:49)
[2019-06-30] MEDS: FLUoxetine 20mg capsule PO SCH ×2 (07:43→20:39)
[2019-06-30] MEDS: multivitamins, therapeutics tablet PO SCH (07:43)
[2019-06-30] MEDS: amiodarone 200mg tablet PO SCH (07:43)
[2019-06-30] MEDS: ascorbic acid 500mg tablet PO SCH (07:43)
[2019-06-30] MEDS: OMEGA-3/DHA/EPA/FISH OIL 1 EACH CAPSULE.DR PO SCH (07:43)
[2019-06-30] MEDS: furosemide 40mg tablet PO SCH (07:43)
[2019-06-30] MEDS: potassium Cl 20 mEq SR tablet PO SCH (07:44)
[2019-06-30] MEDS: levoTHYROXINE 100mcg tablet PO SCH (07:44)
[2019-06-30] MEDS: calcium carbonate 500mg tablet PO SCH (07:44)
[2019-06-30] MEDS: pantoprazole 40mg Tablet.DR PO SCH (07:44)
[2019-06-30] MEDS: ferrous sulfate 325mg tablet PO SCH (07:44)
[2019-06-30] MEDS: digoxin 125mcg (0.125mg) tablet PO SCH (07:48)
[2019-06-30] MEDS: lisinopril 5mg tablet PO SCH (07:49)
[2019-06-30] MEDS: carVEDilol 12.5mg tablet PO SCH ×2 (07:49→20:39)
--- NOTE | 2019-06-30 08:44 | NUR ---
Sent page to Dr. Montserrat huizar PAGER ID: [phone] MESSAGE: Rm [id number], Philip Perez. AM labs showed HCT 22 and had a AM bowel movement that was burgundy, coffee grounds with clots. Thanks! Elodia [phone] Addendum: 06/30/19 at 0847 by Zeenat Owens RN Per Dr. Mariano, order new hemogram for pt
[2019-06-30 09:58] LABS: HEMATOCRIT 23.1 % (35.0-45.0); HEMOGLOBIN 7.7 g/dl (12.0-16.0); MEAN CORPUSCULAR HEMOGLOBIN 30.8 PG (27.0-31.0); MEAN CORPUSCULAR HGB CONC 33.6 g/dL (33.0-36.5); MEAN CORPUSCULAR VOLUME 91.8 FL (78-98); MEAN PLATELET VOLUME 10.3 FL (7.4-10.4); PLATELET COUNT 168 X10'3 (140-440); RED BLOOD COUNT 2.52 X10'6 (4.20-5.60); RED CELL DISTRIBUTION WIDTH 16.5 % (11.5-14.5); WHITE BLOOD COUNT 7.6 X10'3 (4.5-11.0)
[2019-06-30 11:00] VITALS: BP 118/37
[2019-06-30 15:00] VITALS: BP 118/40
[2019-06-30 18:00] VITALS: BP 106/33
--- NOTE | 2019-06-30 18:27 | NUR ---
Problems reprioritized. Patient report given, questions answered & plan of care reviewed with Frankie RN.
[2019-06-30] MEDS: gabapentin 300mg capsule PO SCH (20:39)
[2019-06-30] MEDS: atorvastatin 20mg tablet PO SCH (20:39)
[2019-06-30] MEDS: insulin glargine (Lantus) pen - multi-dose SQ SCH (21:00)
[2019-06-30 22:00] VITALS: BP 120/42
--- NOTE | 2019-07-01 00:27 | NUR ---
Problems reprioritized. Patient report given, questions answered & plan of care reviewed with Ilana nursing surgical services director.
--- NOTE | 2019-07-01 00:31 | NUR ---
Received patient report from Frankie RN. Will assume patient care.
[2019-07-01 02:00] VITALS: BP 115/32
[2019-07-01 05:38] LABS: BASOPHILS % (AUTO) 0.6 % (0-1); EOSINOPHILS # (AUTO) 0.2 X10'3 (0-0.9); EOSINOPHILS % (AUTO) 2.9 % (0-6); LYMPHOCYTES # (AUTO) 0.9 X10'3 (1.1-4.8); LYMPHOCYTES % (AUTO) 14.4 % (21-51); MEAN CORPUSCULAR HGB CONC 34.3 g/dL (33.0-36.5); MEAN CORPUSCULAR VOLUME 90.4 FL (78-98); MONOCYTES # (AUTO) 0.3 X10'3 (0-0.9); MONOCYTES % (AUTO) 5.1 % (2-12); NEUTROPHILS # (AUTO) 4.7 X10'3 (1.8-7.7); PLATELET COUNT 141 X10'3 (140-440); RED BLOOD COUNT 2.25 X10'6 (4.20-5.60); RED CELL DISTRIBUTION WIDTH 16.2 % (11.5-14.5); WHITE BLOOD COUNT 6.1 X10'3 (4.5-11.0)
[2019-07-01 05:48] LABS: HEMATOCRIT 20.3 % (35.0-45.0)
[2019-07-01 05:55] LABS: ALANINE AMINOTRANSFERASE 13 U/L (12-78); ALBUMIN 2.4 G/DL (3.4-5.0); ALKALINE PHOSPHATASE 46 IU/L (46-116); ANION GAP 9 (8-16); ASPARTATE AMINO TRANSFERASE 20 U/L (10-37); BILIRUBIN,TOTAL 0.4 MG/DL (0.1-1.0); BLOOD UREA NITROGEN 23 MG/DL (7-18); BUN/CREATININE RATIO 10.8 (6.6-38.0); CALCIUM 8.5 MG/DL (8.5-10.1); CHLORIDE 107 MMOL/L (99-107); CREATININE 2.12 MG/DL (0.40-0.90); GLUCOSE 149 MG/DL (70-104); MAGNESIUM 1.4 MG/DL (1.5-2.4); POTASSIUM 4.3 MMOL/L (3.5-5.1); SODIUM 141 MMOL/L (135-145); TOTAL CARBON DIOXIDE 25.1 MMOL/L (24-32); TOTAL PROTEIN 4.9 G/DL (6.4-8.2); eGFR 24 ML/MIN
[2019-07-01 06:00] VITALS: BP 125/38
--- NOTE | 2019-07-01 06:06 | NUR ---
Patient in room PCU 3012. I have received report from Ilana SILVA and had the opportunity to ask questions and assume patient care.
--- NOTE | 2019-07-01 06:06 | NUR ---
Problems reprioritized. Patient report given, questions answered & plan of care reviewed with Jaimie SILVA and Elodia SILVA.
--- NOTE | 2019-07-01 06:07 | NUR ---
Patient in room PCU 3012. I have received report from Ilana SILVA and had the opportunity to ask questions and assume patient care.
[2019-07-01] MEDS: K and/or MAG REPLACEMENT MC SCH (08:00)
[2019-07-01] MEDS: magnesium Cl slow-release 64mg tablet PO PRN (08:05)
[2019-07-01] MEDS: lisinopril 5mg tablet PO SCH (08:06)
[2019-07-01] MEDS: OMEGA-3/DHA/EPA/FISH OIL 1 EACH CAPSULE.DR PO SCH (08:06)
[2019-07-01] MEDS: calcium carbonate 500mg tablet PO SCH (08:06)
[2019-07-01] MEDS: potassium Cl 20 mEq SR tablet PO SCH (08:07)
[2019-07-01] MEDS: pantoprazole 40mg Tablet.DR PO SCH (08:07)
[2019-07-01] MEDS: ascorbic acid 500mg tablet PO SCH (08:07)
[2019-07-01] MEDS: FLUoxetine 20mg capsule PO SCH ×2 (08:07→19:58)
[2019-07-01] MEDS: amiodarone 200mg tablet PO SCH (08:07)
[2019-07-01] MEDS: furosemide 40mg tablet PO SCH (08:08)
[2019-07-01] MEDS: levoTHYROXINE 100mcg tablet PO SCH (08:08)
[2019-07-01] MEDS: multivitamins, therapeutics tablet PO SCH (08:08)
[2019-07-01] MEDS: ferrous sulfate 325mg tablet PO SCH (08:08)
[2019-07-01] MEDS: digoxin 125mcg (0.125mg) tablet PO SCH (08:08)
[2019-07-01] MEDS: carVEDilol 12.5mg tablet PO SCH ×2 (08:09→19:59)
--- NOTE | 2019-07-01 08:22 | NUR ---
Paged Dr. Mariano re new H/H PAGER ID: [phone] MESSAGE: Rm 3012BNilsa Perez. FYI AM H/H was 02/22.3. Thanks!
[2019-07-01 11:00] VITALS: BP 109/34
[2019-07-01 11:08] LABS: HEMOGLOBIN 7.2 g/dl (12.0-16.0); MEAN CORPUSCULAR HGB CONC 33.8 g/dL (33.0-36.5); MEAN CORPUSCULAR VOLUME 91.7 FL (78-98); MEAN PLATELET VOLUME 10.4 FL (7.4-10.4); PLATELET COUNT 166 X10'3 (140-440); RED BLOOD COUNT 2.34 X10'6 (4.20-5.60); RED CELL DISTRIBUTION WIDTH 16.4 % (11.5-14.5); WHITE BLOOD COUNT 8.5 X10'3 (4.5-11.0)
[2019-07-01 11:16] LABS: HEMATOCRIT 21.4 % (35.0-45.0)
--- NOTE | 2019-07-01 11:17 | NUR ---
CRITICAL LAB VALUE TAKEN FROM LAB, REPORTED TO PRIMARY RN.
--- NOTE | 2019-07-01 11:30 | NUR ---
Dr. Montserrat huizar 1100 H/H PAGER ID: [phone] MESSAGE: 3012B, TAN Forbes 1100 H/H .. Thanks! Elodia SILVA [phone] Addendum: 07/01/19 at 1133 by Zeenat Owens RN New orders obtained to advance diet to mechanically soft.
--- NOTE | 2019-07-01 11:46 | NUR ---
Reassessment: [facility] controlled from full liquids, pending first meal since advancement. LBM 06/30 with one episode of melanotic stool per MD notes. No surgical intervention at this time however possible sigmoid colectomy if pt becomes unstable per MD notes. Will continue to follow closely and make recommendations as appropriate. Rec: 1. Continue [facility] soft carb controlled diet 2. monitor for ONS needs 3. consider holding fish oil given GIB per MD approval 4. wt per rx Addendum: 07/01/19 at [address] Amended: Links added.
--- NOTE | 2019-07-01 12:16 | NUR ---
Sent a page to Dr. Mariano regarding patient wanting to speak to him in person. She is emotional and has questions regarding the plan going forward. Her exact words, "I dont understand what is going on". She stated that she feels like she would not be comfortable going home at this time. 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 Will continue to closely monitor. PAGER ID: [phone] MESSAGE: Philip Bee. Pt is requesting to speak to you in person, she is concerned with her plan of care and wants to speak with you again. Thanks! Elodia SILVA [phone]
[2019-07-01 15:00] VITALS: BP 101/29
[2019-07-01 15:01] VITALS: BP 118/58
--- NOTE | 2019-07-01 18:12 | NUR ---
Problems reprioritized. Patient report given, questions answered & plan of care reviewed with Vannesa SILVA.
--- NOTE | 2019-07-01 18:15 | NUR ---
Patient in room PCU 3012. I have received report from Elodia SILVA and Jaimie and had the opportunity to ask questions and assume patient care. Checked on patient, she is in bed with no immediate needs. Will continue to monitor.
--- NOTE | 2019-07-01 18:20 | NUR ---
Orientation documentation: I have reviewed and agree with interventions, assessments performed and documented by Elodia SLIVA. Orientee Medication Administration: For this medication-pass time frame, medication were reviewed, dispensed, administered and documented per hospital policy by Elodia SILVA.
[2019-07-01 19:00] VITALS: BP 100/29
[2019-07-01] MEDS: gabapentin 300mg capsule PO SCH (20:00)
[2019-07-01] MEDS: atorvastatin 20mg tablet PO SCH (20:00)
[2019-07-01] MEDS: insulin glargine (Lantus) pen - multi-dose SQ SCH ×2 (20:06→21:39)
--- NOTE | 2019-07-01 22:14 | NUR ---
Patient refused her 2200 vitals and told the PCT to "turn off the fucking lights."
[2019-07-02] VITALS (12 sets, daily range): BP systolic 94–147; BP diastolic 25–54
[2019-07-02 05:02] LABS: BASOPHILS % (AUTO) 0.5 % (0-1); EOSINOPHILS # (AUTO) 0.1 X10'3 (0-0.9); EOSINOPHILS % (AUTO) 1.1 % (0-6); LYMPHOCYTES # (AUTO) 0.8 X10'3 (1.1-4.8); LYMPHOCYTES % (AUTO) 8.5 % (21-51); MEAN CORPUSCULAR HEMOGLOBIN 31.2 PG (27.0-31.0); MEAN CORPUSCULAR HGB CONC 33.9 g/dL (33.0-36.5); MEAN CORPUSCULAR VOLUME 91.9 FL (78-98); MEAN PLATELET VOLUME 10.4 FL (7.4-10.4); MONOCYTES # (AUTO) 0.5 X10'3 (0-0.9); MONOCYTES % (AUTO) 5.5 % (2-12); NEUTROPHILS # (AUTO) 7.9 X10'3 (1.8-7.7); NEUTROPHILS % (AUTO) 84.4 % (42-75); PLATELET COUNT 137 X10'3 (140-440); RED BLOOD COUNT 2.14 X10'6 (4.20-5.60); RED CELL DISTRIBUTION WIDTH 16.1 % (11.5-14.5); WHITE BLOOD COUNT 9.4 X10'3 (4.5-11.0)
[2019-07-02 05:08] LABS: HEMATOCRIT 19.7 % (35.0-45.0); HEMOGLOBIN 6.7 g/dl (12.0-16.0)
--- NOTE | 2019-07-02 05:13 | NUR ---
Lab called with critical results: Hgb 6.[address] Lawson, orders for 1 unit PRBC's.
--- NOTE | 2019-07-02 06:15 | NUR ---
Patient in room PCU 3012. I have received report from RICARDO Leonardo and had the opportunity to ask questions and assume patient care.
--- NOTE | 2019-07-02 06:32 | NUR ---
Problems reprioritized. Patient report given, questions answered & plan of care reviewed with Jennifer SILVA.
--- NOTE | 2019-07-02 07:11 | NUR ---
PAGE to Montserrat Perez Rm [id number] Blood products are ready. Need physician signature. RICARDO Soni [phone]
[2019-07-02] MEDS: potassium Cl 20 mEq SR tablet PO SCH (07:55)
[2019-07-02] MEDS: OMEGA-3/DHA/EPA/FISH OIL 1 EACH CAPSULE.DR PO SCH (07:55)
[2019-07-02] MEDS: ferrous sulfate 325mg tablet PO SCH (07:56)
[2019-07-02] MEDS: multivitamins, therapeutics tablet PO SCH (07:56)
[2019-07-02] MEDS: pantoprazole 40mg Tablet.DR PO SCH (07:56)
[2019-07-02] MEDS: ascorbic acid 500mg tablet PO SCH (07:56)
[2019-07-02] MEDS: carVEDilol 12.5mg tablet PO SCH ×2 (07:56→20:02)
[2019-07-02] MEDS: FLUoxetine 20mg capsule PO SCH ×2 (07:56→20:01)
[2019-07-02] MEDS: furosemide 40mg tablet PO SCH (07:57)
[2019-07-02] MEDS: lisinopril 5mg tablet PO SCH (08:00)
[2019-07-02] MEDS: K and/or MAG REPLACEMENT MC SCH (08:00)
[2019-07-02] MEDS: digoxin 125mcg (0.125mg) tablet PO SCH (08:03)
[2019-07-02] MEDS: levoTHYROXINE 100mcg tablet PO SCH (08:04)
[2019-07-02] MEDS: amiodarone 200mg tablet PO SCH (08:04)
[2019-07-02] MEDS: calcium carbonate 500mg tablet PO SCH (12:18)
[2019-07-02 13:18] LABS: HEMATOCRIT 23.1 % (35.0-45.0); HEMOGLOBIN 7.9 g/dl (12.0-16.0); MEAN CORPUSCULAR HEMOGLOBIN 30.9 PG (27.0-31.0); MEAN CORPUSCULAR VOLUME 90.7 FL (78-98); MEAN PLATELET VOLUME 10.3 FL (7.4-10.4); PLATELET COUNT 152 X10'3 (140-440); RED BLOOD COUNT 2.54 X10'6 (4.20-5.60); RED CELL DISTRIBUTION WIDTH 15.7 % (11.5-14.5); WHITE BLOOD COUNT 10.5 X10'3 (4.5-11.0)
--- NOTE | 2019-07-02 15:58 | NUR ---
[id number] MESSAGE: Mari Lawrencean Rm [id number] Pt's father will be here between 4-430 and was wondering if he could talk with you. Nae ext [phone]
--- NOTE | 2019-07-02 16:12 | NUR ---
[id number] MESSAGE: Mari Lawrencean Rm [id number] Pt's father will be here between 4-430 and was wondering if he could talk with you. Nae ext [phone]
--- NOTE | 2019-07-02 18:15 | NUR ---
Problems reprioritized. Patient report given, questions answered & plan of care reviewed with [].
[2019-07-02] MEDS: insulin Lispro (HumaLOG) vial - multi-dose SQ SCH (19:06)
[2019-07-02] MEDS: gabapentin 300mg capsule PO SCH (20:01)
[2019-07-02] MEDS: atorvastatin 20mg tablet PO SCH (20:02)
[2019-07-02] MEDS: insulin glargine (Lantus) pen - multi-dose SQ SCH (21:53)
--- NOTE | 2019-07-03 02:04 | NUR ---
Patient in room PCU 3012. I have received report from Malissa SILVA and had the opportunity to ask questions and assume patient care.
--- NOTE | 2019-07-03 02:04 | NUR ---
Patient in room PCU 3012. I have received report from RICARDO Leonardo and had the opportunity to ask questions and assume patient care.
[2019-07-03 03:00] VITALS: BP 126/81
--- NOTE | 2019-07-03 05:04 | NUR ---
I have reviewed and agree with all interventions, assessments performed and documented by RICARDO Leonardo .
[2019-07-03 05:17] LABS: HEMATOCRIT 22.9 % (35.0-45.0); HEMOGLOBIN 7.9 g/dl (12.0-16.0); MEAN CORPUSCULAR HEMOGLOBIN 31.3 PG (27.0-31.0); MEAN CORPUSCULAR HGB CONC 34.4 g/dL (33.0-36.5); MEAN PLATELET VOLUME 10.9 FL (7.4-10.4); PLATELET COUNT 125 X10'3 (140-440); RED BLOOD COUNT 2.51 X10'6 (4.20-5.60); RED CELL DISTRIBUTION WIDTH 15.9 % (11.5-14.5); WHITE BLOOD COUNT 6.6 X10'3 (4.5-11.0)
[2019-07-03 05:30] LABS: ALANINE AMINOTRANSFERASE 11 U/L (12-78); ALBUMIN 2.2 G/DL (3.4-5.0); ALBUMIN/GLOBULIN RATIO 0.7 (1.1-1.5); ALKALINE PHOSPHATASE 49 IU/L (46-116); ANION GAP 10 (8-16); ASPARTATE AMINO TRANSFERASE 17 U/L (10-37); BILIRUBIN,TOTAL 0.4 MG/DL (0.1-1.0); BLOOD UREA NITROGEN 34 MG/DL (7-18); BUN/CREATININE RATIO 15.2 (6.6-38.0); CALCIUM 8.6 MG/DL (8.5-10.1); CHLORIDE 104 MMOL/L (99-107); CREATININE 2.23 MG/DL (0.40-0.90); GLUCOSE 206 MG/DL (70-104); MAGNESIUM 1.6 MG/DL (1.5-2.4); POTASSIUM 4.4 MMOL/L (3.5-5.1); SODIUM 139 MMOL/L (135-145); TOTAL CARBON DIOXIDE 24.9 MMOL/L (24-32); TOTAL PROTEIN 5.3 G/DL (6.4-8.2); eGFR 22 ML/MIN
--- NOTE | 2019-07-03 06:19 | NUR ---
Patient in room PCU 3012B. I have received report from Breanne SILVA and Liborio SILVA and had the opportunity to ask questions and assume patient care.
--- NOTE | 2019-07-03 06:21 | NUR ---
Problems reprioritized. Patient report given, questions answered & plan of care reviewed with RICARDO Miranda.
--- NOTE | 2019-07-03 06:23 | NUR ---
Problems reprioritized. Patient report given, Ruth SILVA questions answered & plan of care reviewed with .
[2019-07-03 06:30] VITALS: BP 145/43
[2019-07-03] MEDS: furosemide 40mg tablet PO SCH (07:45)
[2019-07-03] MEDS: digoxin 125mcg (0.125mg) tablet PO SCH (07:45)
[2019-07-03] MEDS: ascorbic acid 500mg tablet PO SCH (07:45)
[2019-07-03] MEDS: calcium carbonate 500mg tablet PO SCH (07:45)
[2019-07-03] MEDS: multivitamins, therapeutics tablet PO SCH (07:46)
[2019-07-03] MEDS: lisinopril 5mg tablet PO SCH (07:46)
[2019-07-03] MEDS: OMEGA-3/DHA/EPA/FISH OIL 1 EACH CAPSULE.DR PO SCH (07:46)
[2019-07-03] MEDS: pantoprazole 40mg Tablet.DR PO SCH (07:46)
[2019-07-03] MEDS: carVEDilol 12.5mg tablet PO SCH (07:46)
[2019-07-03] MEDS: amiodarone 200mg tablet PO SCH (07:47)
[2019-07-03] MEDS: levoTHYROXINE 100mcg tablet PO SCH (07:47)
[2019-07-03] MEDS: ferrous sulfate 325mg tablet PO SCH (07:47)
[2019-07-03] MEDS: potassium Cl 20 mEq SR tablet PO SCH (07:47)
[2019-07-03] MEDS: FLUoxetine 20mg capsule PO SCH (07:47)
[2019-07-03] MEDS: K and/or MAG REPLACEMENT MC SCH (08:00)
[2019-07-03] MEDS: insulin Lispro (HumaLOG) vial - multi-dose SQ SCH (08:43)
--- NOTE | 2019-07-03 10:20 | NUR ---
Diverticulosis Consult: Pt admit w/ diverticular bleed on blood thinners which are currently held per . Pt seen by TOMMY for written/verbal high fiber nutrition therapy ed w/ RD contact information provided. visited during RD diet ed and suggests f/u outpatient w/ GI MD to r/o surgery for diverticulitis as well. TOMMY then provided pt w/ verbal diverticulitis nutrition therapy ed and encouraged pt to contact RD if further questions/concerns. Pending d/c this AM per . Addendum: 07/03/19 at [address] Amended: Links added.
[2019-07-03 11:00] VITALS: BP 129/33
--- NOTE | 2019-07-03 13:48 | NUR ---
Per MD, patient stable for discharge home. Discharge packet printed and provided to patient. No new medication orders from Dr Campo. Lab order form given to patient with followup CBC within a week, per MD order. Unable to make follow up appts due to holiday, patient instructed to followup. IV removed with catheter intact and tele monitor removed. Patient escorted via wheelchair, accompanied by staff and . Driven home via private vehicle.
== END 2019-07-03 13:48 | disposition home or self-care (01) | DRG 377 ==
LOC: ER 13:28 → ED HOLD 16:05 → PCU 3S 19:50
PROVIDERS: ADMIT Family Medicine; ATTEND Family Medicine
PROC: 0W3P8ZZ Control Bleeding in Gastrointestinal Tract, Via Natural or Artificial Opening Endoscopic (ICD-10-PCS; 2019-06-24)
PROC: 30233N1 Transfusion of Nonautologous Red Blood Cells into Peripheral Vein, Percutaneous Approach (ICD-10-PCS; 2019-06-24)
PROC: 0DJD8ZZ Inspection of Lower Intestinal Tract, Via Natural or Artificial Opening Endoscopic (ICD-10-PCS; principal; 2019-06-26)
DX: K57.31 Diverticulosis of large intestine without perforation or abscess with bleeding (principal); N17.0 Acute kidney failure with tubular necrosis; I13.0 Hypertensive heart and chronic kidney disease with heart failure and stage 1 through stage 4 chronic kidney disease, or unspecified chronic kidney disease; I50.22 Chronic systolic (congestive) heart failure; I48.20 Chronic atrial fibrillation, unspecified; N18.4 Chronic kidney disease, stage 4 (severe); D62 Acute posthemorrhagic anemia; E11.65 Type 2 diabetes mellitus with hyperglycemia; E03.9 Hypothyroidism, unspecified; I25.10 Atherosclerotic heart disease of native coronary artery without angina pectoris; E11.22 Type 2 diabetes mellitus with diabetic chronic kidney disease; E78.00 Pure hypercholesterolemia, unspecified; E78.5 Hyperlipidemia, unspecified; K64.1 Second degree hemorrhoids; T50.905A Adverse effect of unspecified drugs, medicaments and biological substances, initial encounter; Z88.8 Allergy status to other drugs, medicaments and biological substances; I25.2 Old myocardial infarction; Z90.49 Acquired absence of other specified parts of digestive tract; Z95.5 Presence of coronary angioplasty implant and graft; Y92.89 Other specified places as the place of occurrence of the external cause; Z79.01 Long term (current) use of anticoagulants; Z79.4 Long term (current) use of insulin; Z80.1 Family history of malignant neoplasm of trachea, bronchus and lung; Z82.0 Family history of epilepsy and other diseases of the nervous system; Z82.3 Family history of stroke; Z85.118 Personal history of other malignant neoplasm of bronchus and lung; Z87.891 Personal history of nicotine dependence
CPT/HCPCS: 36245; 36415; 36430; 43235; 45378; 71045; 74178; 75726; 75736; 76937; 80053; 80061; 80162; 82272; 82948; 83036; 83735; 84443; 85025; 85027; 85610; 86885; 86900; 86901; 86920; 87081; 93005; 93306; 96360; 97110; 97161; 97530; 99152; 99153; 99285; A4620; C1769; C1894; C9113; G0378; J1644; J1815; J2250; J3010; J7040; P9016; Q9967

== ENCOUNTER 2019-07-20 06:38 | Inpatient (IN) | payer MEDICARE ==
[2019-07-20] VITALS (18 sets, daily range): BP systolic 63–163; BP diastolic 32–70
[~2019-07-20] VITALS: Ht 167.6 cm; Wt 76.0 kg
[~2019-07-20 06:38] MED LIST changes: -APIX5TAB3 PO; +FLUO-213 PO; -FLUO20CA22 PO; -MECL12.584 PO
[2019-07-20 07:31] LABS: BASOPHILS # (AUTO) 0.1 X10'3 (0-0.2); EOSINOPHILS % (AUTO) 0 % (0-6); MEAN CORPUSCULAR HGB CONC 32.7 g/dL (33.0-36.5); RED BLOOD COUNT 3.59 X10'6 (4.20-5.60)
[2019-07-20 07:32] LABS: BASOPHILS % (AUTO) 0.3 % (0-1); HEMATOCRIT 32.9 % (35.0-45.0); HEMOGLOBIN 10.8 g/dl (12.0-16.0); LYMPHOCYTES # (AUTO) 0.3 X10'3 (1.1-4.8); MEAN CORPUSCULAR VOLUME 91.7 FL (78-98); MEAN PLATELET VOLUME 10.9 FL (7.4-10.4); MONOCYTES # (AUTO) 1.1 X10'3 (0-0.9); MONOCYTES % (AUTO) 3.7 % (2-12); NEUTROPHILS # (AUTO) 28.5 X10'3 (1.8-7.7); PLATELET COUNT 225 X10'3 (140-440); RED CELL DISTRIBUTION WIDTH 14.3 % (11.5-14.5)
[2019-07-20 07:32] LABS: CLARITY,URINE CLOUDY (Clear); COLOR,URINE YELLOW (Yellow); GLUCOSE, URINE >=1000 mg/dl (Neg); KETONES,URINE NEGATIVE (Neg); LEUKOCYTE ESTERASE ,URINE MODERATE (Neg); NITRITES, URINE NEGATIVE (Neg); OCCULT BLOOD,URINE LARGE (Neg); PH,URINE 5.5 (4.8-8.0); PROTEIN,URINE 100 mg/dl (Neg); UROBILINOGEN,URINE 0.2 E.U/dL (0.2-1.0)
[2019-07-20 07:38] LABS: UA COLLECTION TYPE OTHER
[2019-07-20] MEDS ORDERED: normal saline 1000ml 1,000 ML IV ONE (07:38)
[2019-07-20 07:40] LABS: BACTERIA,URINE 3+ /HPF (Neg); MUCUS STRANDS NONE SEEN /LPF (Neg); RBC,URINE 20-50 /HPF (0-2); SQUAMOUS EPITHELIAL CELL,UR FEW /LPF (FEW); WBC CLUMPS,URINE MANY /HPF (NEGATIVE); WBC,URINE TNTC /HPF (0-4)
[2019-07-20] MEDS ORDERED: metoclopramide 5 mg/ml inj IV ONE (07:40)
[2019-07-20] MEDS ORDERED: metroNIDAZOLE-Flagyl 500mg/NS 100 ML IV STA (07:43)
[2019-07-20] MEDS ORDERED: cefotetan 2gm/isosm dext IVPB 50 ML IV ONE (07:45)
[2019-07-20 07:48] LABS: ALANINE AMINOTRANSFERASE 28 U/L (12-78); ALBUMIN/GLOBULIN RATIO 0.8 (1.1-1.5); ALKALINE PHOSPHATASE 68 IU/L (46-116); ANION GAP 16 (8-16); BILIRUBIN,TOTAL 0.9 MG/DL (0.1-1.0); BLOOD UREA NITROGEN 28 MG/DL (7-18); BUN/CREATININE RATIO 11.8 (6.6-38.0); CALCIUM 8.8 MG/DL (8.5-10.1); CHLORIDE 96 MMOL/L (99-107); CREATININE 2.38 MG/DL (0.40-0.90); GLUCOSE 427 MG/DL (70-104); LIPASE 84 U/L (73-393); SODIUM 134 MMOL/L (135-145); TOTAL CARBON DIOXIDE 21.8 MMOL/L (24-32); TOTAL PROTEIN 6.9 G/DL (6.4-8.2); eGFR 21 ML/MIN
[2019-07-20 07:49] LABS: ASPARTATE AMINO TRANSFERASE 41 U/L (10-37); POTASSIUM 4.8 MMOL/L (3.5-5.1)
[2019-07-20] MEDS ORDERED: diphenhydrAMINE 50 mg/ml inj IV ONE (07:50)
[2019-07-20] MEDS ORDERED: morphine 2 MG/ML inj. syringe IV ONE ×2 (07:50)
[2019-07-20 07:53] LABS: TOTAL CELLS COUNTED 100
[2019-07-20 07:54] LABS: PLATELET ESTIMATE NORMAL; POLYCHROMASIA 1+; TOXIC VACUOLATION 1+
--- NOTE | 2019-07-20 07:58 | NUR ---
spoke with Dr. Walden prior to antibiotic administration if blood cultures were indicated. Dr. Walden stated abx were not indicated for this abd pain.
[2019-07-20] MEDS ORDERED: GABA600T13 PO (08:43)
[2019-07-20] MEDS ORDERED: ceFOXitin 2 GM ADDVANTGE BAG 50 ML IV ONE (09:05)
[2019-07-20] MEDS ORDERED: magnesium Cl slow-release 64mg tablet PO PRN (10:45)
[2019-07-20] MEDS ORDERED: potassium Cl 20 mEq SR tablet PO PRN ×2 (10:45)
[2019-07-20] MEDS ORDERED: acetaminophen 325mg tablet PO PRN (10:45)
[2019-07-20] MEDS ORDERED: magnesium 4gm in 100ml NS 100 ML IV PRN (10:45)
[2019-07-20] MEDS ORDERED: potassium CL 10mEq/100ml bag 100 ML IV PRN ×2 (10:45)
[2019-07-20] MEDS ORDERED: magnesium 2GM in 50ml NS 50 ML IV PRN (10:45)
[2019-07-20] MEDS ORDERED: morphine 2 MG/ML inj. syringe IV PRN (10:45)
--- NOTE | 2019-07-20 10:48 | NUR ---
PT'S CALLED NICOLE DEL TORO [phone]
--- NOTE | 2019-07-20 12:10 | NUR ---
Patient in room TATIANA 357. I have received report from Db SILVA and had the opportunity to ask questions and assume patient care.
[2019-07-20] MEDS ORDERED: dextrose 50%-water 50ml dispensing syringe IV PRN ×2 (12:15)
[2019-07-20] MEDS ORDERED: MESSAGE TO PHARMACY PO ONE (12:15)
[2019-07-20] MEDS ORDERED: HYDROmorphone 1 mg/ml syringe IV PRN (12:15)
[2019-07-20] MEDS ORDERED: glucagon, human recombinant 1mg kit SUBCUT PRN (12:15)
[2019-07-20] MEDS ORDERED: dextrose ORAL solution 15 GM/59 ML bottle PO PRN ×2 (12:15)
[2019-07-20] MEDS ORDERED: APIX5TAB3 PO (12:24)
[2019-07-20] MEDS ORDERED: LISI10TA4 PO (12:24)
[2019-07-20] MEDS: amiodarone 200mg tablet PO SCH (13:58)
[2019-07-20] MEDS: vancomycin/NS 1 GM ADD-VANTAGE 250 ML IV SCH (14:00)
[2019-07-20] MEDS ORDERED: iohexol 300 MG/1 ML 50ml polymer ONE (14:05)
[2019-07-20] MEDS ORDERED: ringers solution, lacted 1,000 ML IV SCH (14:17)
[2019-07-20] MEDS ORDERED: sevoflurane 250ml liquid IH ONE (14:18)
[2019-07-20] MEDS ORDERED: neostigmine methylsulfate 1 MG/ML 10ml vial ONE (14:18)
[2019-07-20] MEDS ORDERED: meperidine/PF 25mg/ml syringe IV PRN ×3 (14:20)
[2019-07-20] MEDS ORDERED: HYDROmorphone inj. 0.5 MG/0.5 ML DISP.SYRIN IV PRN ×2 (14:20)
[2019-07-20] MEDS ORDERED: ondansetron/PF 4mg/2ml inj IV PRN (14:20)
[2019-07-20] MEDS ORDERED: midazolam 2 mg/2 ml injection ONE (14:22)
[2019-07-20] MEDS ORDERED: fentaNYL/PF 50MCG/1 ML 2ML syringe ONE (14:22)
[2019-07-20] MEDS ORDERED: propofol inj 20 ML IV ONE (14:22)
--- NOTE | 2019-07-20 14:25 | NUR ---
Dr Romero phoned with orders to place a tele on patient post op, and request that nursing review Med Rec form for her to reconcile meds. RICARDO Vo notified.
--- NOTE | 2019-07-20 15:05 | NUR ---
Received from OR via BED, accompanied by Anesthesiologist MALCOLM and report given by Anesthesiolgist. PT DROWSY, OXYGENATING WELL ON 10 LPM O2 VIA MASK, NO RESP DISTRESS NOTED. PT DENIES NAUSEA OR PAIN AT THIS TIME. PT IS HYPOTENSIVE SECONDARY TO SEPSIS. SBP IS IN THE 70'S, HR 110-130'S AFIB. PT FEET WERE ELEVATED, SMALL NS BOLUSES OF 250 GIVEN X 2. LEVOPHED WILL BE STARTED WHEN CVL IN PLACE. SCDS ON. FC PATENT, CLOUDY PINK TINGED URINE IN TUBE, SMALL AMOUNT IN BAG.
[2019-07-20] MEDS ORDERED: NORepinephrine 8mg/ 250ml NS 250 ML IV ONE (15:15)
--- NOTE | 2019-07-20 15:26 | NUR ---
unable to do med rec patient and poor historians. patient appears very sick shaking and in pain 05/15. medicated with Dilaudid. dr han paged and Dr Nelson in to see patient. Labs ordered, amiodarone ordered and administered. Pre-op check list completed. Blood sugar 354, SEE LABS. Kevin from lab called to say lactic 8.8. dr han notified. OR notified.as patient in OR. Dr Nelson called floor to say patient will be transferred to ICU. Pharmacy called about med rec as unable to review. Pharmacist Jaciel stated he would address med rec.
--- NOTE | 2019-07-20 16:45 | NUR ---
RIJ CVL WAS PLACED BY DR FOWLER. CXR DONE TO CONFIRM PLACEMENT. LEVOPHED RUNNING AT 0.3MCG/KG/HR. MAP >65 AT TIME OF TRANSFER TO ICU. PT AFEBRILE. AAOX3, VERY FORGETFUL. JUVENAL VILLAVICENCIO CONSULTED DR LANG FOR ICU TRANSFER. REPORT WAS CALLED TO RECEIVING RN, PT TRANSFERRED IN STABLE CONDITION. POST OP BG 244, REPORTED TO BORDER PATROL AGENT.
[2019-07-20] MEDS ORDERED: CADD PCA waste documentation MC PRN (16:55)
[2019-07-20] MEDS ORDERED: naloxone 0.4 mg/ml inj IV PRN (16:55)
[2019-07-20] MEDS ORDERED: HYDROmorphone/NS 1 mg/ml CADD 50 ML IV SCH (17:00)
--- NOTE | 2019-07-20 17:00 | NUR ---
RECEIVED PT FROM . Placed on monitor .Pt is in AFB rate92. also has freq. PVC. She has a implanted ACID. states it goes off often.
[2019-07-20 18:10] LABS: BASOPHILS # (AUTO) 0.1 X10'3 (0-0.2); BASOPHILS % (AUTO) 0.3 % (0-1); EOSINOPHILS % (AUTO) 0 % (0-6); HEMATOCRIT 31.7 % (35.0-45.0); HEMOGLOBIN 10.2 g/dl (12.0-16.0); LYMPHOCYTES # (AUTO) 0.5 X10'3 (1.1-4.8); LYMPHOCYTES % (AUTO) 1.2 % (21-51); MEAN CORPUSCULAR HEMOGLOBIN 29.5 PG (27.0-31.0); MEAN CORPUSCULAR HGB CONC 32.1 g/dL (33.0-36.5); MEAN CORPUSCULAR VOLUME 91.7 FL (78-98); MEAN PLATELET VOLUME 11.2 FL (7.4-10.4); MONOCYTES # (AUTO) 0.7 X10'3 (0-0.9); MONOCYTES % (AUTO) 1.9 % (2-12); NEUTROPHILS % (AUTO) 96.6 % (42-75); PLATELET COUNT 237 X10'3 (140-440); RED BLOOD COUNT 3.46 X10'6 (4.20-5.60); RED CELL DISTRIBUTION WIDTH 13.9 % (11.5-14.5)
[2019-07-20 18:24] LABS: WHITE BLOOD COUNT 39.3 X10'3 (4.5-11.0)
[2019-07-20 18:25] LABS: ALANINE AMINOTRANSFERASE 21 U/L (12-78); ALBUMIN 2.7 G/DL (3.4-5.0); ALBUMIN/GLOBULIN RATIO 0.8 (1.1-1.5); ALKALINE PHOSPHATASE 66 IU/L (46-116); ANION GAP 12 (8-16); ASPARTATE AMINO TRANSFERASE 27 U/L (10-37); BILIRUBIN,TOTAL 0.7 MG/DL (0.1-1.0); BLOOD UREA NITROGEN 31 MG/DL (7-18); BUN/CREATININE RATIO 10.4 (6.6-38.0); CHLORIDE 100 MMOL/L (99-107); CREATININE 2.98 MG/DL (0.40-0.90); GLUCOSE 309 MG/DL (70-104); SODIUM 136 MMOL/L (135-145); TOTAL CARBON DIOXIDE 23.9 MMOL/L (24-32); TOTAL PROTEIN 6.1 G/DL (6.4-8.2); eGFR 16 ML/MIN
[2019-07-20 18:30] LABS: MAGNESIUM 1.1 MG/DL (1.5-2.4); PHOSPHORUS 3.7 MG/DL (2.3-4.5)
--- NOTE | 2019-07-20 18:30 | NUR ---
Patient in room ICU 2039. I have received report from Margaux SILVA and had the opportunity to ask questions and assume patient care. Patient alter and orientated x4, see IV spreadsheet and Interventions for further information.
[2019-07-20] MEDS: HYDROmorphone/NS 1 mg/ml CADD 50 ML IV SCH ×2 (19:00→21:00)
[2019-07-20] MEDS: carVEDilol 3.125mg tablet PO SCH (20:00)
[2019-07-20] MEDS ORDERED: VANCOmycin 1250MG/NS 250ml Bag 250 ML IV SCH (20:00)
[2019-07-20] MEDS: K and/or MAG REPLACEMENT MC SCH (20:00)
[2019-07-20] MEDS ORDERED: amiodarone 200mg tablet PO SCH (20:00)
[2019-07-20] MEDS: piperacillin/tazo 3.375gm/50ml 50 ML IV SCH (20:36)
[2019-07-20] MEDS: normal saline 1000ml 1,000 ML IV SCH (20:37)
[2019-07-20] MEDS ORDERED: HYDROcodone/acetaminophen 10/325mg tab PO PRN (20:50)
[2019-07-20] MEDS: DESVENLAFAXINE SUCCINATE 25 MG PO SCH (21:00)
[2019-07-20] MEDS ORDERED: INSULIN DETEMIR 50 UNIT SQ SCH (21:00)
[2019-07-20] MEDS ORDERED: insulin glargine (Lantus) pen - multi-dose SQ SCH (21:00)
[2019-07-20] MEDS ORDERED: temazepam 15mg capsule PO PRN (21:00)
[2019-07-20] MEDS: insulin glargine (Lantus) pen - multi-dose SQ SCH (22:04)
[2019-07-20] MEDS: insulin Lispro (HumaLOG) vial - multi-dose SQ SCH (22:06)
[2019-07-20] MEDS: gabapentin 300mg capsule PO SCH (22:07)
[2019-07-20] MEDS: atorvastatin 20mg tablet PO SCH (22:07)
[2019-07-21] VITALS (22 sets, daily range): BP systolic 112–143; BP diastolic 4–68
[2019-07-21] MEDS: piperacillin/tazo 3.375gm/50ml 50 ML IV SCH ×3 (01:38→18:25)
[2019-07-21 02:36] LABS: PARTIAL THROMBOPLASTIN TIME 28 SECONDS (22-32)
[2019-07-21 02:39] LABS: BASOPHILS # (AUTO) 0.1 X10'3 (0-0.2); BASOPHILS % (AUTO) 0.3 % (0-1); EOSINOPHILS % (AUTO) 0.1 % (0-6); HEMATOCRIT 26.8 % (35.0-45.0); HEMOGLOBIN 8.7 g/dl (12.0-16.0); LYMPHOCYTES # (AUTO) 0.7 X10'3 (1.1-4.8); LYMPHOCYTES % (AUTO) 2.6 % (21-51); MEAN CORPUSCULAR HEMOGLOBIN 29.7 PG (27.0-31.0); MEAN CORPUSCULAR HGB CONC 32.6 g/dL (33.0-36.5); MEAN PLATELET VOLUME 10.9 FL (7.4-10.4); MONOCYTES # (AUTO) 1.2 X10'3 (0-0.9); MONOCYTES % (AUTO) 4.2 % (2-12); NEUTROPHILS # (AUTO) 25.4 X10'3 (1.8-7.7); NEUTROPHILS % (AUTO) 92.8 % (42-75); PLATELET COUNT 142 X10'3 (140-440); RED BLOOD COUNT 2.94 X10'6 (4.20-5.60); RED CELL DISTRIBUTION WIDTH 13.7 % (11.5-14.5)
[2019-07-21 02:44] LABS: WHITE BLOOD COUNT 27.4 X10'3 (4.5-11.0)
[2019-07-21 02:54] LABS: ALANINE AMINOTRANSFERASE 23 U/L (12-78); ALBUMIN 2.3 G/DL (3.4-5.0); ALBUMIN/GLOBULIN RATIO 0.7 (1.1-1.5); ALKALINE PHOSPHATASE 50 IU/L (46-116); ANION GAP 9 (8-16); ASPARTATE AMINO TRANSFERASE 24 U/L (10-37); BILIRUBIN,TOTAL 0.6 MG/DL (0.1-1.0); BLOOD UREA NITROGEN 35 MG/DL (7-18); BUN/CREATININE RATIO 12.4 (6.6-38.0); CALCIUM 8.1 MG/DL (8.5-10.1); CHLORIDE 99 MMOL/L (99-107); CREATININE 2.83 MG/DL (0.40-0.90); GLUCOSE 312 MG/DL (70-104); MAGNESIUM 3.1 MG/DL (1.5-2.4); PHOSPHORUS 4.4 MG/DL (2.3-4.5); POTASSIUM 4.5 MMOL/L (3.5-5.1); SODIUM 132 MMOL/L (135-145); TOTAL CARBON DIOXIDE 24.2 MMOL/L (24-32); TOTAL PROTEIN 5.5 G/DL (6.4-8.2); eGFR 17 ML/MIN
[2019-07-21] MEDS: normal saline 1000ml 1,000 ML IV SCH ×2 (02:55→12:55)
[2019-07-21 03:33] LABS: PLATELET ESTIMATE NORMAL; TOTAL CELLS COUNTED 100
[2019-07-21 03:34] LABS: LARGE PLATELETS FEW
--- NOTE | 2019-07-21 06:28 | NUR ---
Problems reprioritized. Patient report given, questions answered & plan of care reviewed with Margaux SILVA.
[2019-07-21] MEDS: digoxin 125mcg (0.125mg) tablet PO SCH (07:58)
[2019-07-21] MEDS: pantoprazole 40mg Tablet.DR PO SCH (07:59)
[2019-07-21] MEDS: carVEDilol 3.125mg tablet PO SCH ×2 (07:59→20:59)
[2019-07-21] MEDS: amiodarone 200mg tablet PO SCH (07:59)
[2019-07-21] MEDS: FLUoxetine 20mg capsule PO SCH ×2 (07:59→20:59)
[2019-07-21] MEDS: gabapentin 300mg capsule PO SCH ×2 (08:00→20:58)
[2019-07-21] MEDS ORDERED: CefTRIAXone/D5W-Rocephin 1gm 50 ML IV SCH (08:00)
[2019-07-21] MEDS: apixaban 5mg tablet PO SCH ×2 (08:00→20:00)
[2019-07-21] MEDS: levoTHYROXINE 100mcg tablet PO SCH (08:01)
[2019-07-21] MEDS: ferrous sulfate 325mg tablet PO SCH (08:01)
[2019-07-21] MEDS: ascorbic acid 500mg tablet PO SCH (08:01)
[2019-07-21] MEDS: multivitamins, therapeutics tablet PO SCH (08:02)
[2019-07-21] MEDS: calcium carbonate 500mg tablet PO SCH (08:02)
[2019-07-21] MEDS: OMEGA-3/DHA/EPA/FISH OIL 1 EACH CAPSULE.DR PO SCH (08:03)
[2019-07-21] MEDS: insulin Lispro (HumaLOG) vial - multi-dose SQ SCH ×3 (09:01→19:04)
--- NOTE | 2019-07-21 11:13 | NUR ---
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 Pt s/p cystoscopy w/ ureteral stent and R retrograde pyelogram found to have uterovesical junction stone per MD. PO 25% on clear liquids s/p stent. LBM 07/20. Pt hx N/V prior to admit w/ GLU 427 now down to 224 today; likely r/t sepsis and GI symptoms. Will monitor for diet advancement and additional protein needs this admit. Rec: 1. advance diet per MD to carb controlled 2. monitor for additional protein needs as diet advances 3. wt per rx Addendum: 07/21/19 at [address] Amended: Links added.
[2019-07-21] MEDS: vancomycin/NS 1 GM ADD-VANTAGE 250 ML IV SCH (14:01)
--- NOTE | 2019-07-21 18:20 | NUR ---
Patient in room ICU 2039. I have received report from Margaux SILVA and had the opportunity to ask questions and assume patient care. Patient resting in bed visiting with , no complaints of pain, no signs or symptoms of distress, all monitoring alarms audible. Please see interventions and EMR for further information. Will continue to monitor.
[2019-07-21] MEDS: K and/or MAG REPLACEMENT MC SCH ×2 (19:02→20:00)
[2019-07-21] MEDS: atorvastatin 20mg tablet PO SCH (20:56)
[2019-07-21] MEDS: DESVENLAFAXINE SUCCINATE 25 MG PO SCH (21:00)
[2019-07-21] MEDS: insulin glargine (Lantus) pen - multi-dose SQ SCH (21:06)
--- NOTE | 2019-07-21 22:49 | NUR ---
Patient stated that it felt like it was "burning" when trying to urinate, noted sediment in Bob, patient has slight tenderness upon palpation. Bladder scan shows 0ml. Repositioned Bob catheter tubing, no complaints at this time.
[2019-07-22] VITALS (19 sets, daily range): BP systolic 123–151; BP diastolic 41–72
[2019-07-22] MEDS: piperacillin/tazo 3.375gm/50ml 50 ML IV SCH ×3 (01:02→16:58)
[2019-07-22] MEDS: normal saline 1000ml 1,000 ML IV SCH ×2 (01:03→09:21)
--- NOTE | 2019-07-22 01:28 | NUR ---
Bob catheter removed at 0120, patient complained of pain upon urination and leaking around catheter. Wick in place per patient request.
[2019-07-22 02:56] LABS: BASOPHILS # (AUTO) 0.1 X10'3 (0-0.2); BASOPHILS % (AUTO) 0.5 % (0-1); EOSINOPHILS # (AUTO) 0.3 X10'3 (0-0.9); EOSINOPHILS % (AUTO) 1.6 % (0-6); HEMATOCRIT 26.1 % (35.0-45.0); HEMOGLOBIN 8.8 g/dl (12.0-16.0); LYMPHOCYTES # (AUTO) 0.6 X10'3 (1.1-4.8); LYMPHOCYTES % (AUTO) 4.2 % (21-51); MEAN CORPUSCULAR HEMOGLOBIN 29.8 PG (27.0-31.0); MEAN CORPUSCULAR HGB CONC 33.6 g/dL (33.0-36.5); MEAN CORPUSCULAR VOLUME 88.8 FL (78-98); MEAN PLATELET VOLUME 10.9 FL (7.4-10.4); MONOCYTES # (AUTO) 0.8 X10'3 (0-0.9); MONOCYTES % (AUTO) 4.9 % (2-12); NEUTROPHILS # (AUTO) 13.7 X10'3 (1.8-7.7); NEUTROPHILS % (AUTO) 88.8 % (42-75); PLATELET COUNT 129 X10'3 (140-440); RED BLOOD COUNT 2.94 X10'6 (4.20-5.60); RED CELL DISTRIBUTION WIDTH 13.5 % (11.5-14.5); WHITE BLOOD COUNT 15.4 X10'3 (4.5-11.0)
[2019-07-22 03:16] LABS: ALANINE AMINOTRANSFERASE 20 U/L (12-78); ALBUMIN 2.1 G/DL (3.4-5.0); ALBUMIN/GLOBULIN RATIO 0.6 (1.1-1.5); ALKALINE PHOSPHATASE 59 IU/L (46-116); ANION GAP 9 (8-16); ASPARTATE AMINO TRANSFERASE 22 U/L (10-37); BILIRUBIN,TOTAL 0.5 MG/DL (0.1-1.0); BLOOD UREA NITROGEN 42 MG/DL (7-18); BUN/CREATININE RATIO 13.8 (6.6-38.0); CALCIUM 7.9 MG/DL (8.5-10.1); CHLORIDE 98 MMOL/L (99-107); CREATININE 3.04 MG/DL (0.40-0.90); GLUCOSE 145 MG/DL (70-104); MAGNESIUM 2.4 MG/DL (1.5-2.4); PHOSPHORUS 3.5 MG/DL (2.3-4.5); POTASSIUM 4.4 MMOL/L (3.5-5.1); SODIUM 131 MMOL/L (135-145); TOTAL CARBON DIOXIDE 23.9 MMOL/L (24-32); TOTAL PROTEIN 5.6 G/DL (6.4-8.2); eGFR 16 ML/MIN
[2019-07-22 03:51] LABS: LARGE PLATELETS FEW; PLATELET ESTIMATE DECREASED
--- NOTE | 2019-07-22 06:30 | NUR ---
Patient in room ICU 2039. I have received report from Charlene SILVA and had the opportunity to ask questions and assume patient care.
--- NOTE | 2019-07-22 06:32 | NUR ---
Problems reprioritized. Patient report given, questions answered & plan of care reviewed with Jad SILVA.
[2019-07-22] MEDS: K and/or MAG REPLACEMENT MC SCH ×2 (08:00→20:00)
[2019-07-22] MEDS: pantoprazole 40mg Tablet.DR PO SCH (09:05)
[2019-07-22] MEDS: FLUoxetine 20mg capsule PO SCH ×2 (09:05→20:20)
[2019-07-22] MEDS: levoTHYROXINE 100mcg tablet PO SCH (09:05)
[2019-07-22] MEDS: ferrous sulfate 325mg tablet PO SCH (09:05)
[2019-07-22] MEDS: gabapentin 300mg capsule PO SCH (09:06)
[2019-07-22] MEDS: carVEDilol 3.125mg tablet PO SCH ×2 (09:06→20:20)
[2019-07-22] MEDS: calcium carbonate 500mg tablet PO SCH (09:06)
[2019-07-22] MEDS: OMEGA-3/DHA/EPA/FISH OIL 1 EACH CAPSULE.DR PO SCH (09:06)
[2019-07-22] MEDS: amiodarone 200mg tablet PO SCH (09:06)
[2019-07-22] MEDS: ascorbic acid 500mg tablet PO SCH (09:07)
[2019-07-22] MEDS: multivitamins, therapeutics tablet PO SCH (09:07)
[2019-07-22] MEDS: digoxin 125mcg (0.125mg) tablet PO SCH (09:07)
[2019-07-22] MEDS: insulin Lispro (HumaLOG) vial - multi-dose SQ SCH ×2 (09:20→14:03)
--- NOTE | 2019-07-22 11:19 | NUR ---
bladder scanned pt and 52cc residuals. will continue to monitor.
[2019-07-22] MEDS: vancomycin/NS 1 GM ADD-VANTAGE 250 ML IV SCH (14:25)
--- NOTE | 2019-07-22 15:57 | NUR ---
pt report called to Kelsey SILVA; all questions answered.
--- NOTE | 2019-07-22 15:58 | NUR ---
Patient in room ICU 2039. I have received report from Judi from ICU and had the opportunity to ask questions and assume patient care.
--- NOTE | 2019-07-22 17:38 | NUR ---
Patient oriented to new environment, vital signs obtained and patient put on bed bear. Patient on tele 41 and in no apparent distress. Zosyn hung at time of arrival. Patient offers no other complaints. Will continue to monitor.
--- NOTE | 2019-07-22 18:25 | NUR ---
Problems reprioritized. Patient report given, questions answered & plan of care reviewed with Gracia.
--- NOTE | 2019-07-22 18:37 | NUR ---
Patient in room PCU 3026. I have received report from rn and had the opportunity to ask questions and assume patient care.
[2019-07-22] MEDS: atorvastatin 20mg tablet PO SCH (20:20)
[2019-07-22] MEDS: lactobacillus rhamnosus 10,000 MMU CELLS/CAPSULE PO SCH (20:20)
[2019-07-22] MEDS: DESVENLAFAXINE SUCCINATE 25 MG PO SCH (20:20)
[2019-07-22] MEDS: insulin glargine (Lantus) pen - multi-dose SQ SCH (21:29)
[2019-07-23] MEDS: piperacillin/tazo 3.375gm/50ml 50 ML IV SCH ×3 (00:09→16:34)
[2019-07-23 02:52] VITALS: BP 163/67
[2019-07-23 05:49] LABS: BASOPHILS % (AUTO) 0.4 % (0-1); EOSINOPHILS # (AUTO) 0.1 X10'3 (0-0.9); EOSINOPHILS % (AUTO) 1.3 % (0-6); HEMATOCRIT 26.5 % (35.0-45.0); LYMPHOCYTES # (AUTO) 0.6 X10'3 (1.1-4.8); LYMPHOCYTES % (AUTO) 5.5 % (21-51); MEAN CORPUSCULAR HEMOGLOBIN 30.2 PG (27.0-31.0); MEAN CORPUSCULAR HGB CONC 34.1 g/dL (33.0-36.5); MEAN CORPUSCULAR VOLUME 88.5 FL (78-98); MEAN PLATELET VOLUME 11.1 FL (7.4-10.4); MONOCYTES # (AUTO) 0.9 X10'3 (0-0.9); MONOCYTES % (AUTO) 8.2 % (2-12); NEUTROPHILS # (AUTO) 9.2 X10'3 (1.8-7.7); NEUTROPHILS % (AUTO) 84.6 % (42-75); PLATELET COUNT 116 X10'3 (140-440); RED CELL DISTRIBUTION WIDTH 13.5 % (11.5-14.5); WHITE BLOOD COUNT 10.9 X10'3 (4.5-11.0)
--- NOTE | 2019-07-23 06:00 | NUR ---
Problems reprioritized. Patient report given, questions answered & plan of care reviewed with day rn.
[2019-07-23 06:15] LABS: ALANINE AMINOTRANSFERASE 19 U/L (12-78); ALBUMIN 1.9 G/DL (3.4-5.0); ALBUMIN/GLOBULIN RATIO 0.5 (1.1-1.5); ALKALINE PHOSPHATASE 66 IU/L (46-116); ANION GAP 10 (8-16); ASPARTATE AMINO TRANSFERASE 17 U/L (10-37); BILIRUBIN,TOTAL 0.5 MG/DL (0.1-1.0); BLOOD UREA NITROGEN 41 MG/DL (7-18); CHLORIDE 99 MMOL/L (99-107); CREATININE 2.74 MG/DL (0.40-0.90); GLUCOSE 132 MG/DL (70-104); MAGNESIUM 2.2 MG/DL (1.5-2.4); PHOSPHORUS 3.4 MG/DL (2.3-4.5); POTASSIUM 4.4 MMOL/L (3.5-5.1); SODIUM 133 MMOL/L (135-145); TOTAL CARBON DIOXIDE 23.7 MMOL/L (24-32); TOTAL PROTEIN 5.7 G/DL (6.4-8.2); eGFR 17 ML/MIN
--- NOTE | 2019-07-23 06:28 | NUR ---
Patient in room PCU 3021T. I have received report from Gracia SILVA and had the opportunity to ask questions and assume patient care.
[2019-07-23 06:30] VITALS: BP 144/64
[2019-07-23 06:57] LABS: LARGE PLATELETS FEW; PLATELET ESTIMATE NORMAL
[2019-07-23] MEDS: K and/or MAG REPLACEMENT MC SCH ×2 (08:00→20:00)
[2019-07-23] MEDS: carVEDilol 3.125mg tablet PO SCH ×2 (08:36→19:33)
[2019-07-23] MEDS: gabapentin 300mg capsule PO SCH (08:36)
[2019-07-23] MEDS: OMEGA-3/DHA/EPA/FISH OIL 1 EACH CAPSULE.DR PO SCH (08:36)
[2019-07-23] MEDS: lactobacillus rhamnosus 10,000 MMU CELLS/CAPSULE PO SCH ×2 (08:36→19:33)
[2019-07-23] MEDS: calcium carbonate 500mg tablet PO SCH (08:36)
[2019-07-23] MEDS: multivitamins, therapeutics tablet PO SCH (08:37)
[2019-07-23] MEDS: pantoprazole 40mg Tablet.DR PO SCH (08:37)
[2019-07-23] MEDS: amiodarone 200mg tablet PO SCH (08:37)
[2019-07-23] MEDS: ferrous sulfate 325mg tablet PO SCH (08:37)
[2019-07-23] MEDS: ascorbic acid 500mg tablet PO SCH (08:37)
[2019-07-23] MEDS: levoTHYROXINE 100mcg tablet PO SCH (08:37)
[2019-07-23] MEDS: FLUoxetine 20mg capsule PO SCH ×2 (08:37→19:34)
[2019-07-23] MEDS: digoxin 125mcg (0.125mg) tablet PO SCH (08:38)
[2019-07-23] MEDS: insulin Lispro (HumaLOG) vial - multi-dose SQ SCH ×2 (09:21→19:35)
[2019-07-23 11:00] VITALS: BP 138/59
[2019-07-23 15:00] VITALS: BP 145/44
--- NOTE | 2019-07-23 18:38 | NUR ---
Problems reprioritized. Patient report given, questions answered & plan of care reviewed with Malissa SILVA. Pt eating dinner at stable at discharge
--- NOTE | 2019-07-23 18:47 | NUR ---
Patient in room PCU 3026. I have received report from Ruth SILVA and had the opportunity to ask questions and assume patient care. Patient is finishing up dinner, she is alert and oriented. Will continue to monitor.
[2019-07-23 19:00] VITALS: BP 136/57
[2019-07-23] MEDS: DESVENLAFAXINE SUCCINATE 25 MG PO SCH (21:00)
[2019-07-23] MEDS: insulin glargine (Lantus) pen - multi-dose SQ SCH (21:00)
[2019-07-23] MEDS: atorvastatin 20mg tablet PO SCH (21:00)
[2019-07-23 23:00] VITALS: BP 138/58
[2019-07-24] MEDS: piperacillin/tazo 3.375gm/50ml 50 ML IV SCH ×3 (01:24→16:33)
[2019-07-24 03:00] VITALS: BP 107/56
[2019-07-24 05:34] LABS: BASOPHILS # (AUTO) 0.1 X10'3 (0-0.2); BASOPHILS % (AUTO) 0.5 % (0-1); EOSINOPHILS # (AUTO) 0.3 X10'3 (0-0.9); EOSINOPHILS % (AUTO) 2.7 % (0-6); HEMATOCRIT 25.7 % (35.0-45.0); HEMOGLOBIN 8.8 g/dl (12.0-16.0); LYMPHOCYTES # (AUTO) 0.9 X10'3 (1.1-4.8); LYMPHOCYTES % (AUTO) 9.3 % (21-51); MEAN CORPUSCULAR HEMOGLOBIN 30.3 PG (27.0-31.0); MEAN PLATELET VOLUME 10.5 FL (7.4-10.4); MONOCYTES # (AUTO) 0.8 X10'3 (0-0.9); MONOCYTES % (AUTO) 8.3 % (2-12); NEUTROPHILS # (AUTO) 7.6 X10'3 (1.8-7.7); NEUTROPHILS % (AUTO) 79.2 % (42-75); PLATELET COUNT 124 X10'3 (140-440); RED BLOOD COUNT 2.89 X10'6 (4.20-5.60); RED CELL DISTRIBUTION WIDTH 13.5 % (11.5-14.5); WHITE BLOOD COUNT 9.6 X10'3 (4.5-11.0)
[2019-07-24 05:57] LABS: ALANINE AMINOTRANSFERASE 17 U/L (12-78); ALBUMIN 1.9 G/DL (3.4-5.0); ALBUMIN/GLOBULIN RATIO 0.5 (1.1-1.5); ALKALINE PHOSPHATASE 70 IU/L (46-116); ANION GAP 9 (8-16); ASPARTATE AMINO TRANSFERASE 19 U/L (10-37); BILIRUBIN,TOTAL 0.4 MG/DL (0.1-1.0); BLOOD UREA NITROGEN 45 MG/DL (7-18); BUN/CREATININE RATIO 16.5 (6.6-38.0); CHLORIDE 100 MMOL/L (99-107); CREATININE 2.72 MG/DL (0.40-0.90); GLUCOSE 117 MG/DL (70-104); PHOSPHORUS 3.2 MG/DL (2.3-4.5); POTASSIUM 4.1 MMOL/L (3.5-5.1); SODIUM 134 MMOL/L (135-145); TOTAL CARBON DIOXIDE 24.9 MMOL/L (24-32); TOTAL PROTEIN 5.7 G/DL (6.4-8.2); eGFR 18 ML/MIN
[2019-07-24 06:00] VITALS: BP 122/56
--- NOTE | 2019-07-24 06:42 | NUR ---
Problems reprioritized. Patient report given, questions answered & plan of care reviewed with Florin SILVA.
--- NOTE | 2019-07-24 06:51 | NUR ---
Patient in room PCU 3026. I have received report from RICARDO Leonardo and had the opportunity to ask questions and assume patient care.
[2019-07-24] MEDS: levoTHYROXINE 100mcg tablet PO SCH (07:06)
[2019-07-24] MEDS: K and/or MAG REPLACEMENT MC SCH ×2 (07:48→20:00)
[2019-07-24] MEDS: pantoprazole 40mg Tablet.DR PO SCH (07:52)
[2019-07-24] MEDS: lactobacillus rhamnosus 10,000 MMU CELLS/CAPSULE PO SCH ×2 (07:52→21:19)
[2019-07-24] MEDS: gabapentin 300mg capsule PO SCH (07:52)
[2019-07-24] MEDS: ferrous sulfate 325mg tablet PO SCH (07:52)
[2019-07-24] MEDS: multivitamins, therapeutics tablet PO SCH (07:52)
[2019-07-24] MEDS: OMEGA-3/DHA/EPA/FISH OIL 1 EACH CAPSULE.DR PO SCH (07:52)
[2019-07-24] MEDS: ascorbic acid 500mg tablet PO SCH (07:53)
[2019-07-24] MEDS: calcium carbonate 500mg tablet PO SCH (07:53)
[2019-07-24] MEDS: digoxin 125mcg (0.125mg) tablet PO SCH (07:53)
[2019-07-24] MEDS: FLUoxetine 20mg capsule PO SCH ×2 (07:53→21:19)
[2019-07-24] MEDS: carVEDilol 3.125mg tablet PO SCH ×2 (07:53→21:19)
[2019-07-24] MEDS: amiodarone 200mg tablet PO SCH (07:53)
[2019-07-24 08:29] LABS: GIANT PLATELET FEW; LARGE PLATELETS FEW; PLATELET ESTIMATE DECREASED; SCHISTOCYTES FEW
[2019-07-24] MEDS: insulin Lispro (HumaLOG) vial - multi-dose SQ SCH ×2 (08:34→13:25)
--- NOTE | 2019-07-24 09:56 | NUR ---
Reassessment: Patient's diet has been advanced to CHO controlled and pt documented with average 75% PO intake likely meeting nutrient needs. Sepsis score [address] [facility] 07/22. Will continue to follow. Rec: 1. Continue carb controlled diet 2. monitor for additional protein needs 3. wt per rx Addendum: 07/24/19 at [address] Amended: Links added.
--- NOTE | 2019-07-24 10:01 | NUR ---
Patient with hx T2DM with A1c 7.5. Pt recently admitted and seen by TOMMY 06/25/19 where pt was provided with written and verbal DM education with referral to outpatient DM class and RD contact information. No further education warranted at this time. Will continue to follow. Addendum: 07/24/19 at [address] Amended: Links added.
[2019-07-24 11:00] VITALS: BP 139/77
[2019-07-24] MEDS ORDERED: VANCOMYCIN LEVEL IV ONE (13:30)
[2019-07-24 15:00] VITALS: BP 141/51
--- NOTE | 2019-07-24 18:42 | NUR ---
Problems reprioritized. Patient report given, questions answered & plan of care reviewed with RICARDO Leonardo.
[2019-07-24 19:00] VITALS: BP 153/43
[2019-07-24] MEDS: DESVENLAFAXINE SUCCINATE 25 MG PO SCH (21:00)
[2019-07-24] MEDS: atorvastatin 20mg tablet PO SCH (21:20)
[2019-07-24] MEDS: insulin glargine (Lantus) pen - multi-dose SQ SCH (21:23)
[2019-07-24 23:00] VITALS: BP 152/62
[2019-07-25] MEDS: piperacillin/tazo 3.375gm/50ml 50 ML IV SCH ×3 (01:15→16:43)
[2019-07-25 03:00] VITALS: BP 174/68
[2019-07-25 06:00] VITALS: BP 121/67
--- NOTE | 2019-07-25 06:09 | NUR ---
Patient in room PCU 3026. I have received report from RICARDO Leonardo and had the opportunity to ask questions and assume patient care.
[2019-07-25 06:17] LABS: BASOPHILS # (AUTO) 0.1 X10'3 (0-0.2); BASOPHILS % (AUTO) 0.5 % (0-1); EOSINOPHILS # (AUTO) 0.4 X10'3 (0-0.9); EOSINOPHILS % (AUTO) 3.4 % (0-6); HEMATOCRIT 26.5 % (35.0-45.0); HEMOGLOBIN 8.8 g/dl (12.0-16.0); LYMPHOCYTES # (AUTO) 1.1 X10'3 (1.1-4.8); LYMPHOCYTES % (AUTO) 10.3 % (21-51); MEAN CORPUSCULAR HEMOGLOBIN 29.6 PG (27.0-31.0); MEAN CORPUSCULAR HGB CONC 33.2 g/dL (33.0-36.5); MONOCYTES # (AUTO) 0.8 X10'3 (0-0.9); MONOCYTES % (AUTO) 7.2 % (2-12); NEUTROPHILS # (AUTO) 8.7 X10'3 (1.8-7.7); NEUTROPHILS % (AUTO) 78.6 % (42-75); PLATELET COUNT 155 X10'3 (140-440); RED BLOOD COUNT 2.98 X10'6 (4.20-5.60); RED CELL DISTRIBUTION WIDTH 13.8 % (11.5-14.5); WHITE BLOOD COUNT 11.1 X10'3 (4.5-11.0)
[2019-07-25 07:03] LABS: ALANINE AMINOTRANSFERASE 19 U/L (12-78); ALBUMIN/GLOBULIN RATIO 0.5 (1.1-1.5); ALKALINE PHOSPHATASE 81 IU/L (46-116); ANION GAP 12 (8-16); ASPARTATE AMINO TRANSFERASE 24 U/L (10-37); BILIRUBIN,TOTAL 0.4 MG/DL (0.1-1.0); BLOOD UREA NITROGEN 44 MG/DL (7-18); BUN/CREATININE RATIO 16.5 (6.6-38.0); CALCIUM 8.5 MG/DL (8.5-10.1); CHLORIDE 103 MMOL/L (99-107); CREATININE 2.66 MG/DL (0.40-0.90); GLUCOSE 125 MG/DL (70-104); POTASSIUM 4.2 MMOL/L (3.5-5.1); SODIUM 136 MMOL/L (135-145); TOTAL CARBON DIOXIDE 21.3 MMOL/L (24-32); eGFR 18 ML/MIN
[2019-07-25 07:22] LABS: LARGE PLATELETS FEW; PLATELET ESTIMATE NORMAL
[2019-07-25] MEDS: K and/or MAG REPLACEMENT MC SCH ×2 (08:00→20:00)
[2019-07-25] MEDS: levoTHYROXINE 100mcg tablet PO SCH (08:27)
[2019-07-25] MEDS: multivitamins, therapeutics tablet PO SCH (08:27)
[2019-07-25] MEDS: ascorbic acid 500mg tablet PO SCH (08:27)
[2019-07-25] MEDS: lactobacillus rhamnosus 10,000 MMU CELLS/CAPSULE PO SCH ×2 (08:27→21:18)
[2019-07-25] MEDS: gabapentin 300mg capsule PO SCH (08:27)
[2019-07-25] MEDS: pantoprazole 40mg Tablet.DR PO SCH (08:27)
[2019-07-25] MEDS: carVEDilol 3.125mg tablet PO SCH ×2 (08:27→21:17)
[2019-07-25] MEDS: OMEGA-3/DHA/EPA/FISH OIL 1 EACH CAPSULE.DR PO SCH (08:27)
[2019-07-25] MEDS: FLUoxetine 20mg capsule PO SCH ×2 (08:27→21:18)
[2019-07-25] MEDS: amiodarone 200mg tablet PO SCH (08:28)
[2019-07-25] MEDS: ferrous sulfate 325mg tablet PO SCH (08:28)
[2019-07-25] MEDS: digoxin 125mcg (0.125mg) tablet PO SCH (08:28)
[2019-07-25] MEDS: calcium carbonate 500mg tablet PO SCH (08:28)
[2019-07-25] MEDS: insulin Lispro (HumaLOG) vial - multi-dose SQ SCH ×2 (08:37→13:11)
[2019-07-25 11:00] VITALS: BP 106/68
[2019-07-25 15:00] VITALS: BP 144/51
--- NOTE | 2019-07-25 17:59 | NUR ---
Problems reprioritized. Patient report given, questions answered & plan of care reviewed with RICARDO Leonardo.
--- NOTE | 2019-07-25 18:15 | NUR ---
Patient in room PCU 3026. I have received report from Florin SILVA and had the opportunity to ask questions and assume patient care.
[2019-07-25 19:00] VITALS: BP 162/53
[2019-07-25] MEDS: DESVENLAFAXINE SUCCINATE 25 MG PO SCH (21:00)
[2019-07-25] MEDS: atorvastatin 20mg tablet PO SCH (21:18)
[2019-07-25] MEDS: insulin glargine (Lantus) pen - multi-dose SQ SCH (21:27)
[2019-07-25 23:00] VITALS: BP 159/58
[2019-07-26] MEDS: piperacillin/tazo 3.375gm/50ml 50 ML IV SCH ×2 (00:11→07:37)
[2019-07-26 03:00] VITALS: BP 152/49
[2019-07-26 06:00] VITALS: BP 158/70
--- NOTE | 2019-07-26 06:23 | NUR ---
Problems reprioritized. Patient report given, questions answered & plan of care reviewed with Florin SILVA.
--- NOTE | 2019-07-26 06:24 | NUR ---
Patient in room PCU 3026. I have received report from RICARDO Leonardo and had the opportunity to ask questions and assume patient care.
[2019-07-26] MEDS: K and/or MAG REPLACEMENT MC SCH (07:00)
[2019-07-26] MEDS: OMEGA-3/DHA/EPA/FISH OIL 1 EACH CAPSULE.DR PO SCH (07:35)
[2019-07-26] MEDS: amiodarone 200mg tablet PO SCH (07:36)
[2019-07-26] MEDS: carVEDilol 3.125mg tablet PO SCH (07:36)
[2019-07-26] MEDS: lactobacillus rhamnosus 10,000 MMU CELLS/CAPSULE PO SCH (07:36)
[2019-07-26] MEDS: ferrous sulfate 325mg tablet PO SCH (07:36)
[2019-07-26] MEDS: pantoprazole 40mg Tablet.DR PO SCH (07:36)
[2019-07-26] MEDS: levoTHYROXINE 100mcg tablet PO SCH (07:36)
[2019-07-26] MEDS: FLUoxetine 20mg capsule PO SCH (07:36)
[2019-07-26] MEDS: calcium carbonate 500mg tablet PO SCH (07:36)
[2019-07-26] MEDS: multivitamins, therapeutics tablet PO SCH (07:36)
[2019-07-26] MEDS: gabapentin 300mg capsule PO SCH (07:36)
[2019-07-26] MEDS: ascorbic acid 500mg tablet PO SCH (07:36)
[2019-07-26] MEDS: digoxin 125mcg (0.125mg) tablet PO SCH (07:37)
[2019-07-26] MEDS: insulin Lispro (HumaLOG) vial - multi-dose SQ SCH ×2 (08:54→12:58)
[2019-07-26 11:00] VITALS: BP 137/43
[2019-07-26] MEDS ORDERED: CIPROFLOXACIN PO (12:14)
[2019-07-26] MEDS ORDERED: ciprofloxacin 250mg tablet PO ONE (12:15)
--- NOTE | 2019-07-26 14:07 | NUR ---
Called in medication to [facility], talked to Marizol Davila.
--- NOTE | 2019-07-26 14:52 | NUR ---
Discharged at 1415. PIV taken out and tele returned. Educated on meds, follow-up, DM survival skills given and educated on pleural effusion. Meds called in. Stable per BENNY Byers for DC home. Went with belongings and picked up by family. Wheeled down to car.
== END 2019-07-26 14:15 | disposition home or self-care (01) | DRG 853 ==
LOC: ER 06:38 → ED HOLD 10:50 → SUR 3N 12:02 → ICU 2S 16:30 → PCU 3S 07-22 16:37
PROVIDERS: ADMIT Internal Medicine
PROC: BT1D1ZZ Fluoroscopy of Right Kidney, Ureter and Bladder using Low Osmolar Contrast (ICD-10-PCS; 2019-07-20)
PROC: 02HV33Z Insertion of Infusion Device into Superior Vena Cava, Percutaneous Approach (ICD-10-PCS; 2019-07-20)
PROC: 0T768DZ Dilation of Right Ureter with Intraluminal Device, Via Natural or Artificial Opening Endoscopic (ICD-10-PCS; principal; 2019-07-20 14:18)
DX: A41.9 Sepsis, unspecified organism (principal); N17.0 Acute kidney failure with tubular necrosis; N13.6 Pyonephrosis; I48.20 Chronic atrial fibrillation, unspecified; I69.354 Hemiplegia and hemiparesis following cerebral infarction affecting left non-dominant side; I13.0 Hypertensive heart and chronic kidney disease with heart failure and stage 1 through stage 4 chronic kidney disease, or unspecified chronic kidney disease; K57.30 Diverticulosis of large intestine without perforation or abscess without bleeding; E03.9 Hypothyroidism, unspecified; E11.42 Type 2 diabetes mellitus with diabetic polyneuropathy; E11.65 Type 2 diabetes mellitus with hyperglycemia; E78.00 Pure hypercholesterolemia, unspecified; I50.9 Heart failure, unspecified; E66.9 Obesity, unspecified; N18.9 Chronic kidney disease, unspecified; E11.22 Type 2 diabetes mellitus with diabetic chronic kidney disease; F32.9 Major depressive disorder, single episode, unspecified; G47.30 Sleep apnea, unspecified; I95.9 Hypotension, unspecified; E78.5 Hyperlipidemia, unspecified; I25.10 Atherosclerotic heart disease of native coronary artery without angina pectoris; I25.2 Old myocardial infarction; Z79.01 Long term (current) use of anticoagulants; Z79.4 Long term (current) use of insulin; Z80.1 Family history of malignant neoplasm of trachea, bronchus and lung; Z82.0 Family history of epilepsy and other diseases of the nervous system; Z82.3 Family history of stroke; Z95.0 Presence of cardiac pacemaker; Z68.27 Body mass index [BMI] 27.0-27.9, adult; Z95.5 Presence of coronary angioplasty implant and graft; Z88.5 Allergy status to narcotic agent; Z91.030 Bee allergy status; Z79.899 Other long term (current) drug therapy
CPT/HCPCS: 36415; 71045; 74176; 80053; 80162; 81001; 82948; 83605; 83690; 83735; 84100; 84145; 84443; 85025; 85610; 85730; 87040; 87077; 87088; 87186; 93005; 96365; 96367; 96375; 97110; 97161; 97530; 99285; A4357; A4618; C1758; C1769; C2617; G0378; J0694; J1170; J1200; J1815; J2175; J2250; J2270; J2543; J2704; J2710; J2765; J3010; J3370; J3475; J3490; J7120; Q9967

== ENCOUNTER 2019-08-01 11:27 | Emergency (ER) | payer MEDICARE ==
[~2019-08-01] VITALS: Ht 165.1 cm; Wt 77.3 kg
[~2019-08-01 11:27] MED LIST changes: +APIX5TAB3 PO; +CIPROFLOXACIN PO; +GABA600T13 PO; -LISI-604 PO; +LISI10TA4 PO; -NORCO10T PO
[2019-08-01 12:45] LABS: BASOPHILS # (AUTO) 0.1 X10'3 (0-0.2); BASOPHILS % (AUTO) 0.4 % (0-1); EOSINOPHILS # (AUTO) 0.1 X10'3 (0-0.9); EOSINOPHILS % (AUTO) 0.9 % (0-6); HEMATOCRIT 27.9 % (35.0-45.0); HEMOGLOBIN 9.1 g/dl (12.0-16.0); LYMPHOCYTES # (AUTO) 0.9 X10'3 (1.1-4.8); LYMPHOCYTES % (AUTO) 5.4 % (21-51); MEAN CORPUSCULAR HGB CONC 32.5 g/dL (33.0-36.5); MEAN CORPUSCULAR VOLUME 89.2 FL (78-98); MEAN PLATELET VOLUME 9.9 FL (7.4-10.4); MONOCYTES # (AUTO) 0.6 X10'3 (0-0.9); MONOCYTES % (AUTO) 3.8 % (2-12); NEUTROPHILS # (AUTO) 14.8 X10'3 (1.8-7.7); NEUTROPHILS % (AUTO) 89.5 % (42-75); PLATELET COUNT 355 X10'3 (140-440); RED BLOOD COUNT 3.12 X10'6 (4.20-5.60); RED CELL DISTRIBUTION WIDTH 14.6 % (11.5-14.5); WHITE BLOOD COUNT 16.5 X10'3 (4.5-11.0)
[2019-08-01] MEDS ORDERED: morphine 4 MG/ML inj SYRINge IM ONE ×2 (12:50→15:00)
[2019-08-01 12:54] LABS: ALANINE AMINOTRANSFERASE 18 U/L (12-78); ALBUMIN 2.4 G/DL (3.4-5.0); ALBUMIN/GLOBULIN RATIO 0.5 (1.1-1.5); ALKALINE PHOSPHATASE 91 IU/L (46-116); ANION GAP 9 (8-16); ASPARTATE AMINO TRANSFERASE 17 U/L (10-37); BILIRUBIN,TOTAL 0.4 MG/DL (0.1-1.0); BLOOD UREA NITROGEN 34 MG/DL (7-18); BUN/CREATININE RATIO 14.8 (6.6-38.0); CALCIUM 8.9 MG/DL (8.5-10.1); CHLORIDE 100 MMOL/L (99-107); GLUCOSE 212 MG/DL (70-104); POTASSIUM 4.5 MMOL/L (3.5-5.1); SODIUM 136 MMOL/L (135-145); TOTAL CARBON DIOXIDE 26.7 MMOL/L (24-32); eGFR 21 ML/MIN
[2019-08-01 13:11] LABS: CLARITY,URINE SLIGHTLY CLOUDY (Clear); COLOR,URINE STRAW (Yellow); GLUCOSE, URINE NEGATIVE (Neg); KETONES,URINE NEGATIVE (Neg); LEUKOCYTE ESTERASE ,URINE TRACE (Neg); NITRITES, URINE NEGATIVE (Neg); OCCULT BLOOD,URINE SMALL (Neg); PH,URINE 5.5 (4.8-8.0); PROTEIN,URINE 30 mg/dl (Neg); UROBILINOGEN,URINE 0.2 E.U/dL (0.2-1.0)
[2019-08-01 13:12] LABS: UA COLLECTION TYPE STRAIGHT CATH
[2019-08-01 13:27] LABS: BACTERIA,URINE FEW /HPF (Neg); SQUAMOUS EPITHELIAL CELL,UR FEW /LPF (FEW)
[2019-08-01 13:28] LABS: AMORPHOUS URATES 2+; MUCUS STRANDS FEW /LPF (Neg); TRANSITIONAL EPI CELLS,URINE FEW /HPF; WBC CLUMPS,URINE FEW /HPF (NEGATIVE)
[2019-08-01] MEDS ORDERED: L. R1CAP4 PO (15:45)
[2019-08-01] MEDS ORDERED: METR-159 PO (15:45)
[2019-08-01 16:02] VITALS: BP 163/75
== END 2019-08-01 16:04 | disposition home or self-care (01) ==
LOC: ER 11:28
DX: K57.92 Diverticulitis of intestine, part unspecified, without perforation or abscess without bleeding (principal); F17.200 Nicotine dependence, unspecified, uncomplicated; I48.91 Unspecified atrial fibrillation; I25.10 Atherosclerotic heart disease of native coronary artery without angina pectoris; I11.0 Hypertensive heart disease with heart failure; I50.9 Heart failure, unspecified; E78.00 Pure hypercholesterolemia, unspecified; I25.2 Old myocardial infarction; G47.30 Sleep apnea, unspecified; E11.9 Type 2 diabetes mellitus without complications; Z90.49 Acquired absence of other specified parts of digestive tract; Z98.61 Coronary angioplasty status; Z95.0 Presence of cardiac pacemaker; Z86.73 Personal history of transient ischemic attack (TIA), and cerebral infarction without residual deficits; Z98.890 Other specified postprocedural states; Z79.4 Long term (current) use of insulin; Z79.899 Other long term (current) drug therapy
CPT/HCPCS: 36415; 74176; 80053; 81001; 83605; 84145; 85025; 87088; 96372; 99284; J2270

== ENCOUNTER 2019-08-18 11:04 | Day surgery (SDC) | payer MEDICARE ==
[2019-08-14 13:42] LABS: BASOPHILS # (AUTO) 0.1 X10'3 (0-0.2); BASOPHILS % (AUTO) 0.9 % (0-1); EOSINOPHILS # (AUTO) 0.3 X10'3 (0-0.9); EOSINOPHILS % (AUTO) 3.2 % (0-6); LYMPHOCYTES # (AUTO) 1.5 X10'3 (1.1-4.8); LYMPHOCYTES % (AUTO) 17.1 % (21-51); MEAN CORPUSCULAR HEMOGLOBIN 28.9 PG (27.0-31.0); MEAN CORPUSCULAR HGB CONC 33.2 g/dL (33.0-36.5); MEAN CORPUSCULAR VOLUME 86.9 FL (78-98); MEAN PLATELET VOLUME 10.2 FL (7.4-10.4); MONOCYTES # (AUTO) 0.5 X10'3 (0-0.9); MONOCYTES % (AUTO) 6.1 % (2-12); NEUTROPHILS # (AUTO) 6.2 X10'3 (1.8-7.7); NEUTROPHILS % (AUTO) 72.7 % (42-75); PRE OP HEMATOCRIT 30.4 % (35.0-45.0); PRE OP PLATELET COUNT 225 X10'3 (140-440); RED CELL DISTRIBUTION WIDTH 15.4 % (11.5-14.5)
[2019-08-14 13:47] LABS: PRE OP HEMOGLOBIN 10.1 g/dL (12.0-16.0)
[2019-08-14 13:50] LABS: PRE OP INR 1.1 INR; PRE OP PROTIME 11.3 SECONDS (9.0-12.0)
[2019-08-14 14:02] LABS: ALBUMIN/GLOBULIN RATIO 0.7 (1.1-1.5); ALKALINE PHOSPHATASE 81 IU/L (46-116); BLOOD UREA NITROGEN 33 MG/DL (7-18); BUN/CREATININE RATIO 15.8 (6.6-38.0); CALCIUM 9.1 MG/DL (8.5-10.1); CHLORIDE 100 MMOL/L (99-107); CREATININE 2.09 MG/DL (0.40-0.90); PRE OP ALT 19 U/L (30-65); PRE OP ANION GAP 10 (8-16); PRE OP AST 27 U/L (10-37); PRE OP BILIRUB, TOTAL 0.3 MG/DL (0.0-1.0); PRE OP GLUCOSE 170 MG/DL (70-104); PRE OP POTASSIUM 4.7 MMOL/L (3.4-5.1); PRE OP SODIUM 137 MMOL/L (135-145); TOTAL CARBON DIOXIDE 27.1 MMOL/L (24-32); TOTAL PROTEIN 7.3 G/DL (6.4-8.2); eGFR 24 ML/MIN
[~2019-08-18] VITALS: Ht 165.1 cm; Wt 81.6 kg
[2019-08-18] VITALS (10 sets, daily range): BP systolic 128–162; BP diastolic 48–75
[~2019-08-18 11:04] MED LIST changes: -CIPROFLOXACIN PO; +DOCUMENT DATE & TIME OF BETA-BLOCKER PO ONE; -GABA600T13 PO; +HYDR-3972 PO; +ceFAZolin 1GM/D5W- ADD-VANTAGE 50 ML IV ONE; +famotidine 10mg tablet PO ONE; +iohexol 300 MG/1 ML 50ml polymer ONE; +ringers solution, lacted 1,000 ML IV SCH
[2019-08-18] MEDS ORDERED: ringers solution, lacted 1,000 ML IV SCH (11:48)
[2019-08-18] MEDS ORDERED: morphine 4 MG/ML inj SYRINge IV PRN ×2 (11:50)
[2019-08-18] MEDS ORDERED: labetalol 20mg/4ml (5mg/ml) syringe IV PRN (11:50)
[2019-08-18] MEDS ORDERED: ondansetron/PF 4mg/2ml inj IV PRN (11:50)
[2019-08-18] MEDS ORDERED: fentaNYL/PF 50MCG/1 ML 2ML syringe IV PRN ×2 (11:50)
[2019-08-18] MEDS ORDERED: hydrALAZINE 20mg/ml inj. IV PRN (11:50)
[2019-08-18] MEDS ORDERED: fentaNYL/PF 50MCG/1 ML 2ML syringe ONE (11:52)
[2019-08-18] MEDS ORDERED: midazolam 2 mg/2 ml injection ONE (11:52)
[2019-08-18] MEDS ORDERED: sevoflurane 250ml liquid IH ONE (12:14)
[2019-08-18] MEDS ORDERED: ondansetron/PF 4mg/2ml inj ONE (12:26)
[2019-08-18] MEDS ORDERED: dexamethasone sod phosphate 4mg/ml inj. ONE (12:26)
--- NOTE | 2019-08-18 13:50 | NUR ---
Received from OR via BED, accompanied by Anesthesiologist --DIANA- and report given by Anesthesiolgist. PATIENT A&OX4, DENIES PAIN, V/S WNL, NEUROVASCULAR CHECKS INTACT, 20G PIV RUE, SCD ON, STENT CONECTED TO STRING TAPED TO PUBIC AREA OF ABDOMEN
--- NOTE | 2019-08-18 15:10 | NUR ---
PATIENT A&OX4, DENIES PAIN, V/S WNL, NEUROVASCULAR CHECKS INTACT, 20G PIV RUE D/C, SCD OFF, STENT CONECTED TO STRING TAPED TO PUBIC AREA OF ABDOMEN. I HAVE REVIEWED D/C INSTRUCTIONS WITH PATIENT AND FAMILY AND THEY HAVE VERBALIZED UNDERSTANDING. PATIENT D/C HOME WITH ALL BELONGINGS AND FAMILY GAVE TRANSPORT HOME.
== END 2019-08-18 15:10 | disposition home or self-care (01) ==
LOC: PAS 11:04
PROVIDERS: ATTEND Student in an Organized Health Care Education/Training Program
DX: N13.2 Hydronephrosis with renal and ureteral calculous obstruction (principal); G47.30 Sleep apnea, unspecified; E11.9 Type 2 diabetes mellitus without complications; I11.0 Hypertensive heart disease with heart failure; I50.30 Unspecified diastolic (congestive) heart failure; I48.91 Unspecified atrial fibrillation; J44.9 Chronic obstructive pulmonary disease, unspecified; F32.9 Major depressive disorder, single episode, unspecified; E03.9 Hypothyroidism, unspecified; K21.9 Gastro-esophageal reflux disease without esophagitis; I25.2 Old myocardial infarction; Z87.442 Personal history of urinary calculi; F17.210 Nicotine dependence, cigarettes, uncomplicated; Z86.73 Personal history of transient ischemic attack (TIA), and cerebral infarction without residual deficits; Z98.890 Other specified postprocedural states
CPT/HCPCS: 36415; 52356; 71046; 76000; 80053; 82948; 85025; 85610; 85730; 93005; C1769; C2617; J0690; J1100; J2250; J2405; J3010; J7030; Q9967; A4402; A4618; A7000; J7120

== ENCOUNTER 2020-05-21 09:45 | Day surgery (SDC) | payer MEDICARE ==
[~2020-05-21] VITALS: Ht 165.1 cm; Wt 77.3 kg
[~2020-05-21 09:45] MED LIST changes: -ASCO500C15 PO; +ASCO500C18 PO; -DOCUMENT DATE & TIME OF BETA-BLOCKER PO ONE; -ceFAZolin 1GM/D5W- ADD-VANTAGE 50 ML IV ONE; -famotidine 10mg tablet PO ONE; -iohexol 300 MG/1 ML 50ml polymer ONE; -ringers solution, lacted 1,000 ML IV SCH
[2020-05-21 10:00] VITALS: BP 155/74
[2020-05-21] MEDS ORDERED: MIDAZolam 5mg/5ml vial ONE (10:08)
[2020-05-21] MEDS ORDERED: fentaNYL/PF 50MCG/1 ML 2ML syringe ONE (10:08)
[2020-05-21] MEDS ORDERED: LIDOcaine Viscous 15ml cup ONE (10:09)
[2020-05-21] MEDS ORDERED: VITA400C67 PO (10:24)
[2020-05-21] MEDS ORDERED: OXYB5TAB16 PO (10:26)
[2020-05-21 10:40] VITALS: BP 143/62
[2020-05-21 10:50] VITALS: BP 165/84
[2020-05-21 11:00] VITALS: BP 172/86
[2020-05-21 11:10] VITALS: BP 158/97
== END 2020-05-21 11:30 | disposition home or self-care (01) ==
LOC: GI LAB 09:45
PROVIDERS: ATTEND Internal Medicine Gastroenterology
DX: K31.7 Polyp of stomach and duodenum (principal); K44.9 Diaphragmatic hernia without obstruction or gangrene; K31.89 Other diseases of stomach and duodenum; K29.50 Unspecified chronic gastritis without bleeding; I25.2 Old myocardial infarction; Z86.73 Personal history of transient ischemic attack (TIA), and cerebral infarction without residual deficits; Z79.899 Other long term (current) drug therapy
CPT/HCPCS: 43251; C1769; C1773; G0500; J2250; J3010; J7040; 99152; 99153; A4620

== ENCOUNTER 2020-11-24 21:11 | Inpatient (IN) | payer MEDICARE ==
[~2020-11-24] VITALS: Ht 165.1 cm; Wt 89.7 kg
[~2020-11-24 21:11] MED LIST changes: -APIX5TAB3 PO; +LISI10TA27 PO; -LISI10TA4 PO; +OXYB5TAB16 PO; +VITA400C67 PO
[2020-11-24] MEDS ORDERED: diltiazem 5mg/ml 5ml inj. IV ONE (21:45)
[2020-11-24 22:00] LABS: BASOPHILS # (AUTO) 0.1 X10'3 (0-0.2); BASOPHILS % (AUTO) 0.6 % (0-1); EOSINOPHILS % (AUTO) 0.5 % (0-6); HEMATOCRIT 37.2 % (35.0-45.0); HEMOGLOBIN 11.9 g/dl (12.0-16.0); LYMPHOCYTES # (AUTO) 0.4 X10'3 (1.1-4.8); LYMPHOCYTES % (AUTO) 5.1 % (21-51); MEAN CORPUSCULAR HEMOGLOBIN 29.8 PG (27.0-31.0); MEAN CORPUSCULAR VOLUME 93.3 FL (78-98); MEAN PLATELET VOLUME 10.3 FL (7.4-10.4); MONOCYTES # (AUTO) 0.5 X10'3 (0-0.9); MONOCYTES % (AUTO) 5.4 % (2-12); NEUTROPHILS # (AUTO) 7.7 X10'3 (1.8-7.7); NEUTROPHILS % (AUTO) 88.4 % (42-75); PLATELET COUNT 225 X10'3 (140-440); RED BLOOD COUNT 3.99 X10'6 (4.20-5.60); RED CELL DISTRIBUTION WIDTH 14.8 % (11.5-14.5); WHITE BLOOD COUNT 8.8 X10'3 (4.5-11.0)
[2020-11-24 22:12] LABS: ALANINE AMINOTRANSFERASE 55 U/L (12-78); ALBUMIN 3.4 G/DL (3.4-5.0); ALBUMIN/GLOBULIN RATIO 0.9 (1.1-1.5); ALKALINE PHOSPHATASE 80 IU/L (46-116); ANION GAP 12 (8-16); ASPARTATE AMINO TRANSFERASE 32 U/L (10-37); BLOOD UREA NITROGEN 80 MG/DL (7-18); BUN/CREATININE RATIO 22.7 (6.6-38.0); CALCIUM 9.4 MG/DL (8.5-10.1); CHLORIDE 93 MMOL/L (99-107); CREATININE 3.53 MG/DL (0.40-0.90); GLUCOSE 346 MG/DL (70-104); SODIUM 127 MMOL/L (135-145); TOTAL CARBON DIOXIDE 21.8 MMOL/L (24-32); TOTAL PROTEIN 7.1 G/DL (6.4-8.2); TROPONIN I < 0.04 NG/ML (0.0-0.05); eGFR 13 ML/MIN
[2020-11-24] MEDS: diltiazem-NS 100mg/100ml 100 ML IV SCH (22:12)
[2020-11-24 22:16] LABS: POTASSIUM 6.4 MMOL/L (3.5-5.1)
[2020-11-24] MEDS ORDERED: calcium chloride 100 MG/1 ML inj IV ONE (22:25)
[2020-11-24] MEDS ORDERED: sodium bicarbonate (8.4%) 1 mEq/ml syringe IV ONE (22:25)
[2020-11-24] MEDS ORDERED: insulin regular, human U-100 3ml vial - multi-dose IV ONE (22:30)
[2020-11-24] MEDS ORDERED: furosemide 40mg/4ml inj IV ONE (22:30)
[2020-11-24] MEDS ORDERED: dextrose 50%-water 50ml dispensing syringe IV ONE (22:30)
[2020-11-24] MEDS ORDERED: sodium polystyrene sulfonate 15gm/60ml oral suspension PO ONE (22:30)
[2020-11-24] MEDS ORDERED: APIX5TAB3 PO (22:43)
[2020-11-24] MEDS ORDERED: LACT1CAP65 PO (22:43)
[2020-11-24] MEDS ORDERED: INSU100V12 SQ (22:43)
[2020-11-24] MEDS ORDERED: furosemide 10 MG/1 ML 10ml inj IV ONE (23:00)
[2020-11-24] MEDS ORDERED: magnesium 2GM in 50ml NS 50 ML IV PRN (23:10)
[2020-11-24] MEDS ORDERED: acetaminophen 325mg tablet PO PRN ×2 (23:10)
[2020-11-24] MEDS ORDERED: mag hydrox/Alum hydrox/simeth 30ml oral suspension PO PRN (23:10)
[2020-11-24] MEDS ORDERED: magnesium hydroxide 30ml (MOM) UD suspension PO PRN (23:10)
[2020-11-24] MEDS ORDERED: dextrose 50%-water 50ml dispensing syringe IV PRN ×2 (23:10)
[2020-11-24] MEDS ORDERED: dextrose ORAL solution 15 GM/59 ML bottle PO PRN ×2 (23:10)
[2020-11-24] MEDS ORDERED: HYDROcodone/acetaminophen 5mg/325mg tablet PO PRN (23:10)
[2020-11-24] MEDS ORDERED: potassium Cl 40MEQ/1/2NS 520ml 520 ML IV PRN ×2 (23:10)
[2020-11-24] MEDS ORDERED: ondansetron/PF 4mg/2ml inj IV PRN (23:10)
[2020-11-24] MEDS ORDERED: glucagon, human recombinant 1mg kit SUBCUT PRN (23:10)
[2020-11-24] MEDS ORDERED: magnesium Cl slow-release 64mg tablet PO PRN (23:10)
[2020-11-24] MEDS ORDERED: potassium Cl 20 mEq SR tablet PO PRN ×2 (23:10)
[2020-11-24] MEDS ORDERED: MESSAGE TO PHARMACY PO ONE (23:10)
[2020-11-24] MEDS ORDERED: magnesium 4gm in 100ml NS 100 ML IV PRN (23:10)
[2020-11-24] MEDS ORDERED: diltiazem-NS 100mg/100ml 100 ML IV SCH (23:15)
[2020-11-24 23:36] LABS: HEMOGLOBIN A1C 5.9 % (4.5-6.2)
--- NOTE | 2020-11-24 23:40 | NUR ---
gave pt a puriwick that was placed per pt. request.
[2020-11-25] MEDS ORDERED: CARV-50 PO (00:24)
--- NOTE | 2020-11-25 03:15 | NUR ---
got pt another blanket
[2020-11-25 03:53] LABS: BASOPHILS # (AUTO) 0.1 X10'3 (0-0.2); BASOPHILS % (AUTO) 0.9 % (0-1); EOSINOPHILS % (AUTO) 0.1 % (0-6); HEMATOCRIT 32.3 % (35.0-45.0); HEMOGLOBIN 10.6 g/dl (12.0-16.0); LYMPHOCYTES # (AUTO) 0.4 X10'3 (1.1-4.8); LYMPHOCYTES % (AUTO) 6.1 % (21-51); MEAN CORPUSCULAR HEMOGLOBIN 30.1 PG (27.0-31.0); MEAN CORPUSCULAR HGB CONC 32.9 g/dL (33.0-36.5); MEAN CORPUSCULAR VOLUME 91.7 FL (78-98); MEAN PLATELET VOLUME 10.1 FL (7.4-10.4); MONOCYTES # (AUTO) 0.4 X10'3 (0-0.9); MONOCYTES % (AUTO) 6.3 % (2-12); NEUTROPHILS # (AUTO) 5.4 X10'3 (1.8-7.7); NEUTROPHILS % (AUTO) 86.6 % (42-75); PLATELET COUNT 166 X10'3 (140-440); RED BLOOD COUNT 3.52 X10'6 (4.20-5.60); RED CELL DISTRIBUTION WIDTH 14.6 % (11.5-14.5); WHITE BLOOD COUNT 6.2 X10'3 (4.5-11.0)
[2020-11-25 04:06] LABS: ALANINE AMINOTRANSFERASE 47 U/L (12-78); ALBUMIN 3.2 G/DL (3.4-5.0); ALKALINE PHOSPHATASE 73 IU/L (46-116); ANION GAP 13 (8-16); ASPARTATE AMINO TRANSFERASE 26 U/L (10-37); BILIRUBIN,TOTAL 0.9 MG/DL (0.1-1.0); BLOOD UREA NITROGEN 81 MG/DL (7-18); BUN/CREATININE RATIO 23.4 (6.6-38.0); CALCIUM 9.7 MG/DL (8.5-10.1); CHLORIDE 97 MMOL/L (99-107); CREATININE 3.46 MG/DL (0.40-0.90); GLUCOSE 242 MG/DL (70-104); POTASSIUM 4.4 MMOL/L (3.5-5.1); SODIUM 133 MMOL/L (135-145); TOTAL CARBON DIOXIDE 22.9 MMOL/L (24-32); TOTAL PROTEIN 6.5 G/DL (6.4-8.2); eGFR 13 ML/MIN
[2020-11-25 04:11] LABS: MAGNESIUM 2.4 MG/DL (1.5-2.4)
--- NOTE | 2020-11-25 05:55 | NUR ---
PT AWAKENED TO TAKE AM VS. HR 109, OTHERWISE VSS. REPORTS NO PAIN. AWAITING IPA.
[2020-11-25] MEDS: K and/or MAG REPLACEMENT MC SCH ×2 (08:00→20:00)
--- NOTE | 2020-11-25 08:50 | NUR ---
ECHO AT BEDSIDE
--- NOTE | 2020-11-25 09:13 | NUR ---
pt to CT
[2020-11-25] MEDS: carVEDilol 12.5mg tablet PO SCH ×2 (09:33→19:56)
[2020-11-25] MEDS: oxybutynin 5mg tablet PO SCH (09:33)
[2020-11-25] MEDS: FLUoxetine 20mg capsule PO SCH ×2 (09:33→19:56)
[2020-11-25] MEDS: levoTHYROXINE 100mcg tablet PO SCH (09:33)
[2020-11-25] MEDS: apixaban 5mg tablet PO SCH ×2 (09:39→19:56)
[2020-11-25 13:02] LABS: CLARITY,URINE CLOUDY (Clear); COLOR,URINE YELLOW (Yellow); GLUCOSE, URINE NEGATIVE (Neg); KETONES,URINE NEGATIVE (Neg); LEUKOCYTE ESTERASE ,URINE LARGE (Neg); NITRITES, URINE POSITIVE (Neg); OCCULT BLOOD,URINE TRACE-INTACT (Neg); PROTEIN,URINE NEGATIVE (Neg); UROBILINOGEN,URINE 0.2 E.U/dL (0.2-1.0)
[2020-11-25 13:15] LABS: UA COLLECTION TYPE CLN CATCH MIDSTREAM
[2020-11-25 13:16] LABS: SQUAMOUS EPITHELIAL CELL,UR MODERATE /LPF (FEW)
[2020-11-25 13:17] LABS: BACTERIA,URINE 2+ /HPF (Neg); WBC CLUMPS,URINE FEW /HPF (NEGATIVE)
[2020-11-25 13:18] LABS: RBC,URINE 0-2 /HPF (0-2)
[2020-11-25 13:19] LABS: TOTAL PROTEIN,URINE RANDOM 22.5 MG/DL
[2020-11-25 13:45] LABS: UA EOSINOPHILS NO EOS /HPF
--- NOTE | 2020-11-25 14:12 | NUR ---
ATTEMPTED TO CALL REPORT, RN UNAVAILABLE. Addendum: 11/25/20 at 1412 by CODY KELLEE
[2020-11-25] MEDS: diltiazem-NS 100mg/100ml 100 ML IV SCH (14:17)
[2020-11-25 15:15] VITALS: BP 94/52
--- NOTE | 2020-11-25 15:15 | NUR ---
RECEIVED FROM ER BY BED, PT AAOX3 IN NO ACUTE DISTRESS, DENIES ANY PAIN.
[2020-11-25 18:00] VITALS: BP 125/70
[2020-11-25] MEDS ORDERED: diltiazem-NS 100mg/100ml 100 ML IV SCH (18:03)
[2020-11-25] MEDS: furosemide 20 MG/2 ML vial IV SCH (19:56)
[2020-11-25] MEDS: insulin Lispro (HumaLOG) vial - multi-dose SQ SCH (19:59)
[2020-11-25 20:00] VITALS: BP 108/54
[2020-11-25] MEDS: DESVENLAFAXINE SUCCINATE 25 MG PO SCH (21:00)
[2020-11-25] MEDS ORDERED: gabapentin 300mg capsule PO SCH (21:00)
[2020-11-25] MEDS: atorvastatin 20mg tablet PO SCH (21:27)
[2020-11-25] MEDS: insulin glargine (Lantus) pen - multi-dose SQ SCH (21:38)
[2020-11-25 22:00] VITALS: BP 130/63
[2020-11-26] VITALS (8 sets, daily range): BP systolic 100–125; BP diastolic 53–75
[2020-11-26 07:10] LABS: HEMATOCRIT 29.7 % (35.0-45.0); HEMOGLOBIN 9.8 g/dl (12.0-16.0)
[2020-11-26 07:12] LABS: BASOPHILS # (AUTO) 0.1 X10'3 (0-0.2); BASOPHILS % (AUTO) 1.1 % (0-1); EOSINOPHILS # (AUTO) 0.4 X10'3 (0-0.9); EOSINOPHILS % (AUTO) 6.4 % (0-6); LYMPHOCYTES # (AUTO) 0.9 X10'3 (1.1-4.8); MEAN CORPUSCULAR HEMOGLOBIN 30.1 PG (27.0-31.0); MEAN CORPUSCULAR VOLUME 91.2 FL (78-98); MEAN PLATELET VOLUME 9.6 FL (7.4-10.4); MONOCYTES # (AUTO) 0.6 X10'3 (0-0.9); MONOCYTES % (AUTO) 11.4 % (2-12); NEUTROPHILS # (AUTO) 3.7 X10'3 (1.8-7.7); NEUTROPHILS % (AUTO) 65.1 % (42-75); PLATELET COUNT 166 X10'3 (140-440); RED BLOOD COUNT 3.26 X10'6 (4.20-5.60); RED CELL DISTRIBUTION WIDTH 14.5 % (11.5-14.5); WHITE BLOOD COUNT 5.7 X10'3 (4.5-11.0)
[2020-11-26 07:37] LABS: ALANINE AMINOTRANSFERASE 36 U/L (12-78); ALBUMIN 2.9 G/DL (3.4-5.0); ALBUMIN/GLOBULIN RATIO 0.9 (1.1-1.5); ANION GAP 11 (8-16); ASPARTATE AMINO TRANSFERASE 16 U/L (10-37); BILIRUBIN,TOTAL 0.4 MG/DL (0.1-1.0); BLOOD UREA NITROGEN 83 MG/DL (7-18); BUN/CREATININE RATIO 21.7 (6.6-38.0); CALCIUM 8.8 MG/DL (8.5-10.1); CHLORIDE 99 MMOL/L (99-107); CREATININE 3.83 MG/DL (0.40-0.90); GLUCOSE 161 MG/DL (70-104); MAGNESIUM 2.3 MG/DL (1.5-2.4); POTASSIUM 4.2 MMOL/L (3.5-5.1); SODIUM 137 MMOL/L (135-145); TOTAL CARBON DIOXIDE 27.1 MMOL/L (24-32); TOTAL PROTEIN 6.2 G/DL (6.4-8.2); eGFR 12 ML/MIN
[2020-11-26 07:52] LABS: ALKALINE PHOSPHATASE 64 IU/L (46-116)
[2020-11-26 07:53] LABS: RHEUM FACTOR QUAL REFLEX TITER NEGATIVE (Neg)
[2020-11-26] MEDS: K and/or MAG REPLACEMENT MC SCH ×2 (08:00→20:00)
[2020-11-26 08:02] LABS: ANISOCYTOSIS 1+; LARGE PLATELETS FEW; PLATELET ESTIMATE NORMAL; POLYCHROMASIA FEW
[2020-11-26] MEDS: apixaban 5mg tablet PO SCH ×2 (09:07→20:00)
[2020-11-26] MEDS: furosemide 20 MG/2 ML vial IV SCH ×2 (09:07→18:58)
[2020-11-26] MEDS: oxybutynin 5mg tablet PO SCH (09:08)
[2020-11-26] MEDS: carVEDilol 12.5mg tablet PO SCH ×2 (09:08→18:56)
[2020-11-26] MEDS: FLUoxetine 20mg capsule PO SCH ×2 (09:08→18:59)
[2020-11-26] MEDS: insulin Lispro (HumaLOG) vial - multi-dose SQ SCH ×3 (09:14→19:03)
[2020-11-26] MEDS: levoTHYROXINE 100mcg tablet PO SCH (09:15)
--- NOTE | 2020-11-26 09:30 | NUR ---
DM consult: Pt with A1c 5.9%, DM education not warranted at this time. Will continue to follow. Addendum: 11/26/20 at [address] Amended: Links added.
[2020-11-26] MEDS ORDERED: EPOETIN ALFA-EPBX 20,000 UNIT/ML 1 ML MDV SQ ONE (11:30)
--- NOTE | 2020-11-26 12:30 | NUR ---
PAGER ID: [phone] MESSAGE: 317 pt Chris. On Cardizem @ 2, AFIB in 70-90s. Want to bridge? Has GERD, wants meds please. - [phone]
--- NOTE | 2020-11-26 16:13 | NUR ---
Nutrition consult: Per RN MD request RD visit pt at bedside to educate about current diet order. RD attempted visit with pt at bedside however pt sleeping and requested RD come back at another time. Written heart failure nutrition therapy and fluid restriction nutrition therapy educations with a list of potassium content in foods left at patient's bedside with RD contact information. DM education not provided given A1c of 5.9% which is well controlled. Noted that diet has been explained to pt by MD per MD notes. Will continue to follow. Addendum: 11/26/20 at [address] Amended: Links added.
[2020-11-26] MEDS: calcium carbonate 500mg chew tablet PO SCH ×2 (17:30→21:36)
--- NOTE | 2020-11-26 18:00 | NUR ---
Patient in room MED 317. I have received report from ZABRINA SILVA and had the opportunity to ask questions and assume patient care.
--- NOTE | 2020-11-26 18:00 | NUR ---
Patient in room MED 317. I have received report from MIROSLAVA SILVA and had the opportunity to ask questions and assume patient care.
--- NOTE | 2020-11-26 18:32 | NUR ---
PAGER ID: [phone] MESSAGE: 317 pt Dolan. Mg off, wasn't bridged... BP 116/61. HR now 120s-130s. What do you want to do? - Alexandra Haddad Addendum: 11/26/20 at 1836 by Alexandra Garcia RN PAGER ID: [phone] MESSAGE: 317 pt Dolan. Mg off, wasn't bridged... BP 116/61. HR now 120s-130s. What do you want to do? - Alexandra Haddad
[2020-11-26] MEDS: gabapentin 300mg capsule PO SCH (18:59)
[2020-11-26] MEDS: atorvastatin 20mg tablet PO SCH (18:59)
[2020-11-26] MEDS ORDERED: carVEDilol 12.5mg tablet PO SCH (20:00)
[2020-11-26] MEDS: DESVENLAFAXINE SUCCINATE 25 MG PO SCH (21:00)
[2020-11-26] MEDS ORDERED: digoxin 250mcg/ml 2ml ampule IV ONE (21:10)
[2020-11-26] MEDS: insulin glargine (Lantus) pen - multi-dose SQ SCH (21:24)
[2020-11-27 02:00] VITALS: BP 106/63
[2020-11-27] MEDS ORDERED: digoxin 250mcg/ml 2ml ampule IV ONE (03:00)
[2020-11-27 06:30] VITALS: BP 81/63
--- NOTE | 2020-11-27 07:05 | NUR ---
Problems reprioritized. Patient report given, questions answered & plan of care reviewed with PAT RN.
[2020-11-27 07:46] LABS: EOSINOPHILS # (AUTO) 0.3 X10'3 (0-0.9); MONOCYTES # (AUTO) 0.5 X10'3 (0-0.9); NEUTROPHILS # (AUTO) 3.5 X10'3 (1.8-7.7); RED BLOOD COUNT 3.37 X10'6 (4.20-5.60); WHITE BLOOD COUNT 5.3 X10'3 (4.5-11.0)
[2020-11-27 07:50] LABS: BASOPHILS % (AUTO) 0.8 % (0-1); EOSINOPHILS % (AUTO) 5.2 % (0-6); HEMATOCRIT 30.9 % (35.0-45.0); HEMOGLOBIN 10.1 g/dl (12.0-16.0); LYMPHOCYTES % (AUTO) 18.9 % (21-51); MEAN CORPUSCULAR HEMOGLOBIN 30.1 PG (27.0-31.0); MEAN CORPUSCULAR HGB CONC 32.8 g/dL (33.0-36.5); MEAN CORPUSCULAR VOLUME 91.9 FL (78-98); MEAN PLATELET VOLUME 9.8 FL (7.4-10.4); NEUTROPHILS % (AUTO) 65.1 % (42-75); PLATELET COUNT 167 X10'3 (140-440); RED CELL DISTRIBUTION WIDTH 14.3 % (11.5-14.5)
[2020-11-27] MEDS: carVEDilol 12.5mg tablet PO SCH ×2 (07:54→18:58)
[2020-11-27] MEDS: calcium carbonate 500mg chew tablet PO SCH ×5 (07:54→21:34)
[2020-11-27 07:55] LABS: ALANINE AMINOTRANSFERASE 32 U/L (12-78); ALBUMIN 2.9 G/DL (3.4-5.0); ALBUMIN/GLOBULIN RATIO 0.9 (1.1-1.5); ALKALINE PHOSPHATASE 65 IU/L (46-116); ANION GAP 9 (8-16); ASPARTATE AMINO TRANSFERASE 16 U/L (10-37); BILIRUBIN,TOTAL 0.5 MG/DL (0.1-1.0); BLOOD UREA NITROGEN 76 MG/DL (7-18); CALCIUM 9.2 MG/DL (8.5-10.1); CHLORIDE 99 MMOL/L (99-107); CREATININE 3.46 MG/DL (0.40-0.90); GLUCOSE 149 MG/DL (70-104); MAGNESIUM 2.2 MG/DL (1.5-2.4); SODIUM 137 MMOL/L (135-145); TOTAL CARBON DIOXIDE 28.9 MMOL/L (24-32); TOTAL PROTEIN 6.2 G/DL (6.4-8.2); eGFR 13 ML/MIN
[2020-11-27] MEDS: levoTHYROXINE 100mcg tablet PO SCH (07:55)
[2020-11-27] MEDS: oxybutynin 5mg tablet PO SCH (07:55)
[2020-11-27] MEDS: apixaban 5mg tablet PO SCH ×2 (07:55→18:59)
[2020-11-27] MEDS: FLUoxetine 20mg capsule PO SCH ×2 (07:55→18:59)
[2020-11-27] MEDS: furosemide 20 MG/2 ML vial IV SCH ×2 (07:56→18:57)
[2020-11-27] MEDS: K and/or MAG REPLACEMENT MC SCH ×2 (08:00→20:00)
[2020-11-27] MEDS ORDERED: CefTRIAXone/D5W-Rocephin 1gm 50 ML IV ONE ×2 (08:50→15:35)
[2020-11-27 09:19] LABS: COMPLEMENT C3, SERUM 90 mg/dL (82-167); COMPLEMENT C4, SERUM 24 mg/dL (12-38); HBSAG SCREEN Negative (Negative); HEPATITIS C ANTIBODY <0.1 s/co ratio (0.0-0.9)
[2020-11-27] MEDS: insulin Lispro (HumaLOG) vial - multi-dose SQ SCH ×2 (09:36→19:10)
[2020-11-27 11:00] VITALS: BP 107/67
--- NOTE | 2020-11-27 12:42 | NUR ---
F/u for nutrition consult: Pt seen at bedside with SO present. Pt initially denies questions regarding current diet order. RD provided verbal education regarding electrolyte intake for renal status and fluid restriction per MD (written materials with RD contact information already provided). Patient's SO reports they usually have someone prepare meals for them however has recently reverted to frozen convenience meals which are likely high in sodium. RD discussed preparing homemade convenience meals. SO reports they will return to having someone prepare meals for them again. All of patient and SO's questions were answered at this time. Informed pt of current A1c of 5.9%. Pt reports she recently had an A1c of 12% though is normally stable in the 7's. Pt states she sees a physician regularly, takes long acting insulin per rx though only takes short acting insulin about half of the time. RD encouraged pt to f/u with physician for further DM management recommendations. Pt endorses a good appetite and states she is getting full from meals, currently documented with average 50-75% PO intake of meals. Pt denies food allergies or difficulty chewing swallowing. LBM 11/24 though pt denies feelings of constipation. Noted PRN MoM available however not documented to be given. RD encouraged pt to inform RN if she continues without a BM and pt agrees to power pudding with dinner cristina d/w dietary. Will continue to follow. Addendum: 11/27/20 at [address] Amended: Links added.
[2020-11-27 14:00] VITALS: BP 113/57
[2020-11-27] MEDS: CefTRIAXone/D5W-Rocephin 1gm 50 ML IV SCH (15:09)
[2020-11-27 15:35] LABS: ANTINUCLEAR ANTIBODIES Positive (Negative)
[2020-11-27 18:00] VITALS: BP 121/65
--- NOTE | 2020-11-27 18:40 | NUR ---
Patient in room MED 317. I have received report from KAROLINA RN and had the opportunity to ask questions and assume patient care.
[2020-11-27] MEDS: gabapentin 300mg capsule PO SCH (19:02)
[2020-11-27] MEDS: atorvastatin 20mg tablet PO SCH (19:02)
[2020-11-27] MEDS: DESVENLAFAXINE SUCCINATE 25 MG PO SCH (21:00)
[2020-11-27] MEDS: insulin glargine (Lantus) pen - multi-dose SQ SCH (21:34)
[2020-11-27 22:00] VITALS: BP 127/43
[2020-11-28 02:00] VITALS: BP 100/77
[2020-11-28 06:00] VITALS: BP 121/51
--- NOTE | 2020-11-28 06:09 | NUR ---
Problems reprioritized. Patient report given, questions answered & plan of care reviewed with LESA SILVA.
[2020-11-28 06:49] LABS: BASOPHILS # (AUTO) 0.1 X10'3 (0-0.2); BASOPHILS % (AUTO) 1.1 % (0-1); EOSINOPHILS # (AUTO) 0.3 X10'3 (0-0.9); EOSINOPHILS % (AUTO) 6.2 % (0-6); HEMATOCRIT 31.6 % (35.0-45.0); HEMOGLOBIN 10.4 g/dl (12.0-16.0); LYMPHOCYTES # (AUTO) 0.9 X10'3 (1.1-4.8); LYMPHOCYTES % (AUTO) 19.3 % (21-51); MEAN PLATELET VOLUME 9.5 FL (7.4-10.4); MONOCYTES # (AUTO) 0.4 X10'3 (0-0.9); MONOCYTES % (AUTO) 8.9 % (2-12); NEUTROPHILS # (AUTO) 3.1 X10'3 (1.8-7.7); NEUTROPHILS % (AUTO) 64.5 % (42-75); PLATELET COUNT 165 X10'3 (140-440); RED BLOOD COUNT 3.47 X10'6 (4.20-5.60); RED CELL DISTRIBUTION WIDTH 14.6 % (11.5-14.5); WHITE BLOOD COUNT 4.8 X10'3 (4.5-11.0)
[2020-11-28 07:22] LABS: ALANINE AMINOTRANSFERASE 31 U/L (12-78); ALBUMIN 2.8 G/DL (3.4-5.0); ALBUMIN/GLOBULIN RATIO 0.8 (1.1-1.5); ALKALINE PHOSPHATASE 66 IU/L (46-116); ANION GAP 10 (8-16); ASPARTATE AMINO TRANSFERASE 20 U/L (10-37); BILIRUBIN,TOTAL 0.4 MG/DL (0.1-1.0); BLOOD UREA NITROGEN 74 MG/DL (7-18); BUN/CREATININE RATIO 23.7 (6.6-38.0); CALCIUM 9.3 MG/DL (8.5-10.1); CHLORIDE 101 MMOL/L (99-107); CREATININE 3.12 MG/DL (0.40-0.90); GLUCOSE 207 MG/DL (70-104); MAGNESIUM 2.1 MG/DL (1.5-2.4); POTASSIUM 4.1 MMOL/L (3.5-5.1); SODIUM 140 MMOL/L (135-145); TOTAL CARBON DIOXIDE 29.5 MMOL/L (24-32); TOTAL PROTEIN 6.2 G/DL (6.4-8.2); eGFR 15 ML/MIN
[2020-11-28] MEDS ORDERED: CARV25TA2 PO (08:40)
[2020-11-28] MEDS ORDERED: DIGO125T PO (08:40)
[2020-11-28] MEDS: CefTRIAXone/D5W-Rocephin 1gm 50 ML IV SCH (09:11)
[2020-11-28] MEDS: levoTHYROXINE 100mcg tablet PO SCH (09:12)
[2020-11-28] MEDS: oxybutynin 5mg tablet PO SCH (09:12)
[2020-11-28] MEDS: apixaban 5mg tablet PO SCH (09:12)
[2020-11-28] MEDS: FLUoxetine 20mg capsule PO SCH (09:12)
[2020-11-28] MEDS: calcium carbonate 500mg chew tablet PO SCH (09:12)
[2020-11-28] MEDS: carVEDilol 12.5mg tablet PO SCH (09:12)
[2020-11-28] MEDS: furosemide 20 MG/2 ML vial IV SCH (09:12)
[2020-11-28] MEDS: insulin Lispro (HumaLOG) vial - multi-dose SQ SCH (09:22)
[2020-11-29 14:55] LABS: A/G RATIO 1.1 (0.7-1.7); ALBUMIN 2.9 g/dL (2.9-4.4); GAMMA GLOBULIN 0.7 g/dL (0.4-1.8); GLOBULIN, TOTAL 2.7 g/dL (2.2-3.9); M-SPIKE Not Observed g/dL (Not Observed); PROTEIN, TOTAL, SERUM 5.6 g/dL (6.0-8.5)
== END 2020-11-28 11:45 | disposition home or self-care (01) | DRG 682 ==
LOC: ER 21:12 → ED HOLD 23:07 → MED 3N 11-25 15:05
PROVIDERS: ADMIT Family Medicine; ATTEND Family Medicine
DX: N17.9 Acute kidney failure, unspecified (principal); I50.23 Acute on chronic systolic (congestive) heart failure; I13.0 Hypertensive heart and chronic kidney disease with heart failure and stage 1 through stage 4 chronic kidney disease, or unspecified chronic kidney disease; N39.0 Urinary tract infection, site not specified; E87.1 Hypo-osmolality and hyponatremia; E87.2 Acidosis; N18.4 Chronic kidney disease, stage 4 (severe); E87.5 Hyperkalemia; Z20.822 Contact with and (suspected) exposure to COVID-19; R06.03 Acute respiratory distress; E11.22 Type 2 diabetes mellitus with diabetic chronic kidney disease; R00.0 Tachycardia, unspecified; E11.65 Type 2 diabetes mellitus with hyperglycemia; E78.5 Hyperlipidemia, unspecified; E78.00 Pure hypercholesterolemia, unspecified; I25.10 Atherosclerotic heart disease of native coronary artery without angina pectoris; D64.9 Anemia, unspecified; I48.91 Unspecified atrial fibrillation; E03.9 Hypothyroidism, unspecified; G47.33 Obstructive sleep apnea (adult) (pediatric); Z79.4 Long term (current) use of insulin; Z80.1 Family history of malignant neoplasm of trachea, bronchus and lung; Z82.0 Family history of epilepsy and other diseases of the nervous system; I25.2 Old myocardial infarction; Z82.3 Family history of stroke; Z86.73 Personal history of transient ischemic attack (TIA), and cerebral infarction without residual deficits; Z95.5 Presence of coronary angioplasty implant and graft; Z91.030 Bee allergy status; Z79.899 Other long term (current) drug therapy; Z95.0 Presence of cardiac pacemaker; Z82.61 Family history of arthritis; Z87.891 Personal history of nicotine dependence
CPT/HCPCS: 36415; 71045; 74176; 80053; 81001; 82570; 82948; 83036; 83605; 83735; 83880; 83935; 84133; 84145; 84155; 84156; 84165; 84300; 84443; 84484; 85008; 85025; 85651; 86038; 86160; 86430; 86592; 86803; 87040; 87077; 87088; 87186; 87207; 87340; 87635; 93005; 93306; 93308; 99285; C9803; G0378; J0696; J1160; J1815; J1940; J3490; Q4081

== ENCOUNTER 2021-04-23 12:00 | Emergency (ER) | payer MEDICARE ==
[~2021-04-23] VITALS: Ht 165.1 cm; Wt 75.0 kg
[~2021-04-23 12:00] MED LIST changes: -AMIO200T61 PO; +APIX5TAB3 PO; -CARV25TA2 PO; +CARV25TA3 PO; -DIGO125T PO; +DIGO125T97 PO; -HYDR-3972 PO; +HYDR25TA5 PO; +LACT1CAP65 PO; +OXYB-58 PO; -OXYB5TAB16 PO; -POTA10TA10 PO; -VITA100D6 PO
[2021-04-23 12:12] VITALS: BP 94/34
[2021-04-23] MEDS ORDERED: HYDROcodone/acetaminophen 10/325mg tab PO ONE (13:15)
[2021-04-23] MEDS ORDERED: LORazepam 1 MG tablet PO ONE (14:10)
[2021-04-23] MEDS ORDERED: HYDR-3965 PO (14:24)
[2021-04-23] MEDS ORDERED: CYCL-1 PO (14:24)
== END 2021-04-23 14:37 | disposition home or self-care (01) ==
LOC: ER 12:00
DX: S70.02XA Contusion of left hip, initial encounter (principal); M25.572 Pain in left ankle and joints of left foot; M25.562 Pain in left knee; I48.91 Unspecified atrial fibrillation; I25.10 Atherosclerotic heart disease of native coronary artery without angina pectoris; I11.0 Hypertensive heart disease with heart failure; I50.9 Heart failure, unspecified; E78.00 Pure hypercholesterolemia, unspecified; I25.2 Old myocardial infarction; E11.9 Type 2 diabetes mellitus without complications; G47.39 Other sleep apnea; Z90.49 Acquired absence of other specified parts of digestive tract; Z95.0 Presence of cardiac pacemaker; Z95.5 Presence of coronary angioplasty implant and graft; Z91.030 Bee allergy status; Z79.4 Long term (current) use of insulin; Z79.899 Other long term (current) drug therapy; W01.0XXA Fall on same level from slipping, tripping and stumbling without subsequent striking against object, initial encounter; Y93.89 Activity, other specified; Y92.89 Other specified places as the place of occurrence of the external cause; Y99.8 Other external cause status
CPT/HCPCS: 73502; 73564; 73610; 99284

== ENCOUNTER 2021-08-05 16:42 | Emergency (ER) | payer MEDICARE ==
[~2021-08-05] VITALS: Ht 165.1 cm; Wt 75.0 kg
[~2021-08-05 16:42] MED LIST changes: +CYCL-1 PO
[2021-08-05 17:06] VITALS: BP 110/56
[2021-08-05 18:45] LABS: BASOPHILS # (AUTO) 0.1 X10'3 (0-0.2); BASOPHILS % (AUTO) 0.6 % (0-1); EOSINOPHILS # (AUTO) 0.2 X10'3 (0-0.9); HEMATOCRIT 30.2 % (35.0-45.0); HEMOGLOBIN 10.6 g/dl (12.0-16.0); LYMPHOCYTES # (AUTO) 1.8 X10'3 (1.1-4.8); LYMPHOCYTES % (AUTO) 17.8 % (21-51); MEAN CORPUSCULAR HEMOGLOBIN 31.1 PG (27.0-31.0); MEAN CORPUSCULAR HGB CONC 35.1 g/dL (33.0-36.5); MEAN CORPUSCULAR VOLUME 88.5 FL (78-98); MEAN PLATELET VOLUME 11.1 FL (7.4-10.4); MONOCYTES # (AUTO) 0.5 X10'3 (0-0.9); MONOCYTES % (AUTO) 5.2 % (2-12); NEUTROPHILS # (AUTO) 7.7 X10'3 (1.8-7.7); NEUTROPHILS % (AUTO) 74.4 % (42-75); PLATELET COUNT 229 X10'3 (140-440); RED BLOOD COUNT 3.41 X10'6 (4.20-5.60); RED CELL DISTRIBUTION WIDTH 13.4 % (11.5-14.5); WHITE BLOOD COUNT 10.3 X10'3 (4.5-11.0)
[2021-08-05 18:55] LABS: ALBUMIN 3.5 G/DL (3.4-5.0); ALBUMIN/GLOBULIN RATIO 0.8 (1.1-1.5); ALKALINE PHOSPHATASE 66 IU/L (46-116); BILIRUBIN,TOTAL 0.5 MG/DL (0.1-1.0); BLOOD UREA NITROGEN 121 MG/DL (7-18); BUN/CREATININE RATIO 23.4 (6.6-38.0); CALCIUM 9.8 MG/DL (8.5-10.1); CHLORIDE 86 MMOL/L (99-107); CREATININE 5.16 MG/DL (0.40-0.90); TOTAL CARBON DIOXIDE 27.6 MMOL/L (24-32); TOTAL PROTEIN 7.9 G/DL (6.4-8.2); eGFR 8 ML/MIN
[2021-08-05 19:21] LABS: ALANINE AMINOTRANSFERASE 21 U/L (12-78); ANION GAP 18 (8-16); ASPARTATE AMINO TRANSFERASE 13 U/L (10-37); GLUCOSE 324 MG/DL (70-104); POTASSIUM 3.2 MMOL/L (3.5-5.1); SODIUM 132 MMOL/L (135-145)
[2021-08-06 00:08] LABS: CLARITY,URINE CLOUDY (Clear); COLOR,URINE YELLOW (Yellow); GLUCOSE, URINE NEGATIVE (Neg); KETONES,URINE NEGATIVE (Neg); LEUKOCYTE ESTERASE ,URINE SMALL (Neg); NITRITES, URINE NEGATIVE (Neg); OCCULT BLOOD,URINE LARGE (Neg); PROTEIN,URINE 30 mg/dl (Neg); UROBILINOGEN,URINE 0.2 E.U/dL (0.2-1.0)
[2021-08-06 00:26] LABS: UA COLLECTION TYPE STRAIGHT CATH
[2021-08-06 00:27] LABS: BACTERIA,URINE FEW /HPF (Neg); RBC,URINE 20-50 /HPF (0-2); SQUAMOUS EPITHELIAL CELL,UR FEW /LPF (FEW); WBC,URINE 0-4 /HPF (0-4)
== END 2021-08-06 01:02 | disposition home or self-care (01) ==
LOC: ER 16:42
DX: R31.9 Hematuria, unspecified (principal); I48.91 Unspecified atrial fibrillation; I25.10 Atherosclerotic heart disease of native coronary artery without angina pectoris; I11.0 Hypertensive heart disease with heart failure; I50.9 Heart failure, unspecified; I25.2 Old myocardial infarction; E11.9 Type 2 diabetes mellitus without complications; Z86.73 Personal history of transient ischemic attack (TIA), and cerebral infarction without residual deficits; Z90.89 Acquired absence of other organs; Z95.0 Presence of cardiac pacemaker; Z98.890 Other specified postprocedural states; Z91.030 Bee allergy status; Z79.899 Other long term (current) drug therapy
CPT/HCPCS: 74176; 80053; 81001; 81003; 85025; 87077; 87088; 87186; 99284

== ENCOUNTER 2021-08-15 13:18 | Emergency (ER) | payer MEDICARE ==
[~2021-08-15] VITALS: Ht 165.1 cm; Wt 167.0 kg
--- NOTE | 2021-08-15 13:44 | NUR ---
UNABLE TO DO EKG ON [facility] DUE TO PT'S CLOTHING, PT IS KELL A DRESS THAT IS UNABLE TO GIVEN APPROPRIATE ACCESS. PROVIDER NOTIFIED
[2021-08-15 14:29] LABS: BASOPHILS % (AUTO) 0.4 % (0-1); EOSINOPHILS # (AUTO) 0.1 X10'3 (0-0.9); HEMATOCRIT 32.3 % (35.0-45.0); HEMOGLOBIN 11.3 g/dl (12.0-16.0); LYMPHOCYTES # (AUTO) 1.5 X10'3 (1.1-4.8); LYMPHOCYTES % (AUTO) 14.9 % (21-51); MEAN CORPUSCULAR HGB CONC 35.1 g/dL (33.0-36.5); MEAN CORPUSCULAR VOLUME 88.1 FL (78-98); MEAN PLATELET VOLUME 10.1 FL (7.4-10.4); MONOCYTES # (AUTO) 0.6 X10'3 (0-0.9); NEUTROPHILS # (AUTO) 7.8 X10'3 (1.8-7.7); NEUTROPHILS % (AUTO) 77.7 % (42-75); PLATELET COUNT 254 X10'3 (140-440); RED BLOOD COUNT 3.66 X10'6 (4.20-5.60); RED CELL DISTRIBUTION WIDTH 13.4 % (11.5-14.5); WHITE BLOOD COUNT 10.1 X10'3 (4.5-11.0)
[2021-08-15 14:56] LABS: ALANINE AMINOTRANSFERASE 17 U/L (12-78); ALBUMIN 3.6 G/DL (3.4-5.0); ALBUMIN/GLOBULIN RATIO 0.9 (1.1-1.5); ALKALINE PHOSPHATASE 65 IU/L (46-116); ANION GAP 16 (8-16); ASPARTATE AMINO TRANSFERASE 15 U/L (10-37); BILIRUBIN,TOTAL 0.7 MG/DL (0.1-1.0); BLOOD UREA NITROGEN 112 MG/DL (7-18); BUN/CREATININE RATIO 21.5 (6.6-38.0); CALCIUM 10.2 MG/DL (8.5-10.1); CHLORIDE 88 MMOL/L (99-107); CREATININE 5.21 MG/DL (0.40-0.90); GLUCOSE 113 MG/DL (70-104); POTASSIUM 3.2 MMOL/L (3.5-5.1); SODIUM 131 MMOL/L (135-145); TOTAL CARBON DIOXIDE 27.3 MMOL/L (24-32); TOTAL PROTEIN 7.8 G/DL (6.4-8.2); eGFR 8 ML/MIN
[2021-08-15 15:02] LABS: MAGNESIUM 2.3 MG/DL (1.5-2.4)
[2021-08-15] MEDS ORDERED: aspirin 325mg tablet PO ONE (15:30)
--- NOTE | 2021-08-15 17:03 | NUR ---
Patient resting quietly. going home: Shan [phone]
--- NOTE | 2021-08-15 19:15 | NUR ---
nelli is alert and oriented and denies pain - assumed care of patient at 1830 and advised CN to get cardiac leads into the room in order to monitor the patient. Patient is resting and reports no distress.
[2021-08-15 19:22] VITALS: BP 93/55
[2021-08-15] MEDS ORDERED: amiodarone 150mg/dext, iso-os 100 ML IV ONE (19:30)
[2021-08-15] MEDS ORDERED: AMIO200T61 PO (19:36)
== END 2021-08-15 21:02 | disposition home or self-care (01) ==
LOC: ER 13:19
DX: R07.89 Other chest pain (principal); I48.91 Unspecified atrial fibrillation; I25.10 Atherosclerotic heart disease of native coronary artery without angina pectoris; E78.00 Pure hypercholesterolemia, unspecified; I11.0 Hypertensive heart disease with heart failure; I50.9 Heart failure, unspecified; I25.2 Old myocardial infarction; G47.30 Sleep apnea, unspecified; E11.9 Type 2 diabetes mellitus without complications; Z86.73 Personal history of transient ischemic attack (TIA), and cerebral infarction without residual deficits; Z95.5 Presence of coronary angioplasty implant and graft; Z95.0 Presence of cardiac pacemaker; Z90.49 Acquired absence of other specified parts of digestive tract; Z91.030 Bee allergy status; Z79.899 Other long term (current) drug therapy
CPT/HCPCS: 36415; 71045; 80053; 83735; 83880; 84484; 85025; 85610; 93005; 96365; 99285; J0282